=== PATIENT | male | born 1945 | race Caucasian/White ===

== ENCOUNTER 2017-06-29 11:22 | Emergency (ER) | payer MEDICARE, BC, SELFPAY ==
[2017-06-29] VITALS (11 sets, daily range): BP systolic 104–174; BP diastolic 52–132; PULSE 87–139; RESP 14–30; TEMP 37; O2SAT 91–100; BMI 28.0
--- NOTE | 2017-06-29 11:25 | XR_ITS ---
XR chest portable HISTORY: Chest pain ITS.REASON: cp ORDERING PHYSICIAN: James Mosley MD PATIENT AGE: 71 years COMPARISON: 03/25/2017 FINDINGS: There is cardiomegaly with mild pulmonary venous congestion and interstitial edema consistent with CHF. Pacemaker device is present along with a overlying external defibrillator device. There is some patchy density in the left lower lobe consistent with infiltrate and/or atelectasis superimposed upon chronic change with COPD. There is an old right clavicular fracture. IMPRESSION: CHF with COPD and left lower lobe atelectasis or infiltrate
--- NOTE | 2017-06-29 11:29 | HMH.EDGENADL ---
ED Disposition Clinical Impression: Respiratory failure, Chest pain, CHF (congestive heart failure), COPD exacerbation, Chest pain in adult Disposition: Xfer Short-Term Hosp Condition on Discharge: Serious Referrals: Roberto Carlos Cano MD [Primary Care Provider] - - Critical Care Critical Care Time: Yes Attestation: On , the high probability of a clinically significant, sudden or life threatening deterioration of the following system(s) required my full and direct attention, intervention and personal management. The time I documented below is in addition to time spent performing reported procedures but includes the following listed in this critical care notation. Total Critical Care Time: 45 Vital system(s) involved:: Respiratory Failure My critical care processes included: Assessment & monitoring of V/S, Initial and Re-exams, Data Review/Interpretation, Coordinating Care, Medication Orders and management, Documentation Medical Decision Making - Medical Records MR Comment: 1131 Cardiology is here upon patient arrival. they are discussing and reviewing the EKGs now, two current ekgs and old ekg. 1239 initial ABG was off of BiPAP. He is currently on BiPAP and we will get another ABG we will likely go ahead and intubate him unless he is demonstrating some improvement. 152 trend was positive, 3rd abg demonstrates continued improvement. has been seen by cardiology. call out to Tosha GIBSON. 157 pm dw Tosha desires transfer. 1358 family desires transfer to [facility]. [address] Langston he desired the patient to be intubated. Discussed with the family the patient is now awake they do not desire to be intubated I am going to get a repeat abg. will not intubate in accordance with pt and family wishes. Vital Signs: 06/29/17 11:22 06/29/17 13:10 06/29/17 13:12 Pulse Rate Pulse Rate [Right Radial] 135 H 105 H 105 H Respiratory Rate 16 29 H 29 H Blood Pressure [Right Arm] 174/132 151/95 151/95 Blood Pressure Mean [Right Arm] 146 113 113 Blood Pressure Source [Right Arm] Automatic Cuff Automatic Cuff Automatic Cuff Blood Pressure Position [Right Arm] Sitting Supine Sitting 02 Sat by Pulse Oximetry 97 Oxygen Delivery Method Non-Rebreather 06/29/17 13:40 06/29/17 13:59 06/29/17 14:10 Pulse Rate 124 H Pulse Rate [Right Radial] 107 H 139 H Respiratory Rate 22 16 30 H Blood Pressure [Right Arm] 125/74 133/83 Blood Pressure Mean [Right Arm] 91 99 Blood Pressure Source [Right Arm] Automatic Cuff Automatic Cuff Blood Pressure Position [Right Arm] Supine Sitting 02 Sat by Pulse Oximetry 100 98 91 L Oxygen Delivery Method BiPAP BiPAP BiPAP 06/29/17 14:26 Pulse Rate Pulse Rate [Right Radial] 105 H Respiratory Rate 14 Blood Pressure [Right Arm] 133/83 Blood Pressure Mean [Right Arm] 99 Blood Pressure Source [Right Arm] Automatic Cuff Blood Pressure Position [Right Arm] Sitting 02 Sat by Pulse Oximetry 100 Oxygen Delivery Method BiPAP - Lab Data Lab Results 06/29/17 11:28: WBC 13.0 H, RBC 3.78 L, Hgb 11.0 L, Hct 37.3 L, MCV 98.7 H, MCH 29.2, MCHC 29.6 L, RDW 14.4, Plt Count 408, MPV 7.6, Neut % (Auto) 68.9, Lymph % (Auto) 23.1, [place] % (Auto) 5.9, Eos % (Auto) 1.6, Baso % (Auto) 0.4, Neut # (Auto) 8.9 H, Lymph # (Auto) 3.0, [place] # (Auto) 0.8, Eos # (Auto) 0.2, Baso # (Auto) 0.1 06/29/17 11:28: Sodium 137, Potassium 4.9, Chloride 96 L, Carbon Dioxide 36 H, Anion Gap 9.9, BUN 19 H, Creatinine 1.26, Estimated Creat Clear 67, Estimated GFR 57 L, Est GFR ( Amer) 69, Glucose 433 H*, Calcium 9.2, Total Bilirubin 0.2, AST 11 L, ALT 24, Alkaline Phosphatase 190 H, Lactate Dehydrogenase 153, Troponin I < 0.02, Total Protein 8.1, Albumin 3.8, Globulin 4.3 H, Albumin/Globulin Ratio 0.9 L, Lipase 180 06/29/17 11:28: B-Natriuretic Peptide 265 H 06/29/17 11:28: D-Dimer 377 06/29/17 11:45: Specimen Source R radial, O2 % 100, ABG pH 7.09 L*, ABG pCO2 133.0 H, ABG pO2 167.4 H, ABG HCO3 39.4 H, ABG Total CO2 43.5 H, ABG O
--- NOTE | 2017-06-29 11:32 | PC.NURSE ---
Francisco J Christie speaking with
[2017-06-29 11:39] LABS: Basophils # 0.1 K/mm3 (0-0.2); Basophils % 0.4 % (0.1-2.0); Eosinophils # 0.2 K/mm3 (0.0-0.4); Eosinophils % 1.6 % (0.1-12.0); Hematocrit 37.3 % (42.0-52.0); Lymphocytes % 23.1 K/mm3 (10-50); Mean Corpuscular HGB Conc 29.6 g/dL (31.8-35.4); Mean Corpuscular Hemoglobin 29.2 pg (27.0-31.2); Mean Corpuscular Volume 98.7 fl (80-94); Mean Platelet Volume 7.6 fl (7.4-10.4); Monocytes # 0.8 K/mm3 (0.1-1.0); Monocytes % 5.9 % (1.7-9.3); Neutrophils # 8.9 K/mm3 (1.8-7.8); Neutrophils % 68.9 % (37.0-80.0); Platelet Count 408 K/mm3 (142-424); Red Blood Count 3.78 M/mm3 (4.60-6.20); Red Cell Distribution Width 14.4 % (11.5-17.5)
--- NOTE | 2017-06-29 11:40 | PC.NURSE ---
Dr. Chamberlain at bedside with Francisco J
--- NOTE | 2017-06-29 11:46 | CA_ITS ---
PROCEDURE: 2-D M-mode and color Doppler study INDICATIONS FOR THE TEST: Chest pain COPD Heart Murmur Tobacco Smoking Palpitations Fatigue Syncope Edema Hypertension Diabetes MellitusX Rheumatic Fever SOBXDOE ObesityXHyperlipidemia Family History HD Additional History AF,TACHYCARDIA PATIENT INFORMATION HEIGHT: 68 WEIGHT:200 GENDER: Male B/P: 2-D/M-MODE INTERPRETATION: 2-D MEASUREMENTS OBSERVED VALUES IN CMS Right Ventricular Dimension (RVDd) 1.8 Interventricular Septum (Thickness)(IVsd) 1.5 Left Ventricular Internal Dimensions(LVIDd) 5.9 Left Ventricular Posterior Wall (Thickness)(LVPWd) 1.4 Aortic Root 3.1 Aortic Cusp Separation 1.9 Left Atrial Dimensions (LAD) 3.6 2D 1. Technically difficult study because of the patient's factor and poor acoustic windows. 2. Left atrium is mildly enlarged, left ventricle is mildly dilated, there is reduced left ventricular systolic function, visually estimated ejection fraction 30%, left ventricle is globally hypokinetic, there is abnormal septal motion. 3. The right atrium and right ventricle are mildly enlarged with normal contractility, there is a pacemaker lead seen in the right atrium and right ventricle. 4. The aortic valve is minimally thickened and fibrosed. 5. The mitral and tricuspid valve leaflets are minimally thickened. 6. The pulmonic valve is poorly visualized 7. No significant pericardial effusion noted. DOPPLER INTERROGATION: Doppler interrogation of the aortic, mitral and tricuspid valvular presence of moderate to severe mitral and mild tricuspid regurgitation. Calculated right ventricular systolic pressure is 76 mmHg consistent with moderate pulmonary hypertension, inferior vena cava is dilated without significant aortic. Tissue Doppler is indicative of raised left atrial pressure. CONCLUSION: 1. Technically difficult study because of the patient's factor and poor acoustic windows. 2. Mildly enlarged left atrium, normal left ventricular size, mild concentric left ventricular hypertrophy, visually estimated ejection fraction 30% left ventricle is globally hypokinetic, there is abnormal septal motion, tissue Doppler evidence of raised left atrial pressure. 3. Mildly enlarged right atrium and right ventricle, contractility of the right ventricle is normal. 4. Moderate to severe mitral and tricuspid regurgitation, calculated right ventricular systolic pressure is 76 mmHg consistent with severe pulmonary hypertension. 5. No significant pericardial effusion noted.
[2017-06-29 12:03] LABS: Alanine Aminotransferase 24 U/L (12-78); Albumin Level 3.8 gm/dL (3.4-5.0); Albumin/Globulin Ratio 0.9 (1.1-1.8); Alkaline Phosphatase 190 U/L (46-116); Anion Gap 9.9 mEq/L (5-15); Aspartate Amino Transferase 11 U/L (15-37); Bilirubin,Total 0.2 mg/dL (0.2-1.0); Blood Urea Nitrogen 19 mg/dL (7-18); Calcium 9.2 mg/dL (8.5-10.1); Carbon Dioxide 36 mmol/L (21.0-32.0); Chloride 96 mmol/L (98-107); Creatinine Clearance Estimated 67 mL/min (0-300); Creatinine,Serum 1.26 mg/dL (0.70-1.30); Estimated Glomerular Filt Rate 57 ml/min (>60); GFR (African American) 69 ML/MIN (>60); Globulin 4.3 gm/dl (1.3-3.2); Lactate Dehydrogenase 153 U/L (82-234); Lipase 180 u/L (73-393); Potassium 4.9 mmoL/L (3.5-5.1); Sodium 137 mmol/L (136-145); Total Protein,Serum 8.1 gm/dL (6.4-8.2); Troponin I < 0.02 ng/ml (0.00-0.06)
--- NOTE | 2017-06-29 12:03 | HMH.CARDCON2 ---
History of Present Illness Consult date: 06/29/17 Requesting physician: James Mosley Consult reason: chest pain Chief complaint: chest pain, SOA History of present illness: 71-year-old white male with known history of coronary artery disease status post coronary artery stenting with last cardiac catheterization in September 2016 showing moderate coronary disease of the circumflex and right coronary artery with mildly reduced ejection fraction and severe pulmonary hypertension relates onset of shortness of breath and chest pain about 10 AM today. Patient relates this was severe and he felt like he was having a heart attack. EMS was alerted and patient was transported to the [facility] ER for further evaluation. He received 2 sublingual nitroglycerin in route with some improvement in chest pain but was still complaining of significant shortness of breath and chest pain upon arrival. Elevated blood pressure 174/132 mmHg with heart rate 135 bpm noted upon arrival. EKG upon arrival shows sinus tach with left bundle branch block with questionable ST segment abnormalities in the anterior leads compared with old tracing from March 2017. Reviewed by Dr. Edwards and was not felt to represent an acute ST elevation PA. Patient was given IV morphine along with IV nitroglycerin drip with improvement in symptoms. Review of Systems - *Cardiovascular Reports chest pain, Reports shortness of breath - *Respiratory Reports shortness of breath, Reports shortness of breath with activity - *Musculoskeletal Reports body aches [facility] History Medical History: Reports:: Diabetes Mellitus Type 2, Internal Pacemaker Denies:: Cancer, Diabetes Mellitus Type 1, MRSA Other Surgeries: Yes: Pacemaker Amputation: No - *Social History Alcohol Intake: never - Psychiatric History Expresses thoughts of harming self/others: None Suicide Plan Description: No Plan Meds Allergies Allergy/AdvReac Type Severity Reaction Status Date / Time Sulfa (Sulfonamide Allergy Intermediate I-RASH Verified 06/29/17 11:51 Antibiotics) [SULFA (SULFONAMIDE ANTIBIOTICS)] fluticasone Allergy Mild NA-NAUSEA/V Verified 06/29/17 11:52 [From ADVAIR DISKUS] OMITING salmeterol Allergy Mild NA-NAUSEA/V Verified 06/29/17 11:51 [From ADVAIR DISKUS] OMITING Exam Vital signs and Labs for Last 24 Hours: Pulse Resp BP Pulse Ox 135 H 16 174/132 97 06/29/17 11:22 06/29/17 11:22 06/29/17 11:22 06/29/17 11:22 Laboratory Results - last 24 hr 06/29/17 11:28: WBC 13.0 H, RBC 3.78 L, Hgb 11.0 L, Hct 37.3 L, MCV 98.7 H, MCH 29.2, MCHC 29.6 L, RDW 14.4, Plt Count 408, MPV 7.6, Neut % (Auto) 68.9, Lymph % (Auto) 23.1, [place] % (Auto) 5.9, Eos % (Auto) 1.6, Baso % (Auto) 0.4, Neut # (Auto) 8.9 H, Lymph # (Auto) 3.0, [place] # (Auto) 0.8, Eos # (Auto) 0.2, Baso # (Auto) 0.1 I & O for Last 24 hours: Intake & Output 06/27/17 06/28/17 06/29/17 06/30/17 11:59 11:59 11:59 11:59 Weight 190 lb - Constitutional moderate distress, severe distress - *Routine Neck Exam Present: JVD. Absent: carotid bruit - *Routine Respiratory Exam Present: wheezes, diminished air movement - *Routine Cardiovascular Exam Present: tachycardia - *Routine Extremities Exam Present: edema - *Routine Neurological Exam Present: alert, oriented X3, moving all extremities Results 06/29/17 11:28 06/29/17 11:28 CBC 06/29/17 Range/Units 11:28 WBC 13.0 H (4.8-10.8) K/mm3 RBC 3.78 L (4.60-6.20) M/mm3 Hgb 11.0 L (14.1-18.0) g/dL Hct 37.3 L (42.0-52.0) % Plt Count 408 (142-424) K/mm3 Neut # (Auto) 8.9 H (1.8-7.8) K/mm3 Lymph # (Auto) 3.0 (0.7-4.5) K/mm3 [place] # (Auto) 0.8 (0.1-1.0) K/mm3 Eos # (Auto) 0.2 (0.0-0.4) K/mm3 Baso # (Auto) 0.1 (0-0.2) K/mm3 Intake and Output 06/29/17 06/29/17 06/29/17 03:59 11:59 19:59 Other: Weight 190 lb EKG interpretations - EKG EKG results cardi
[2017-06-29 12:05] LABS: Microscopic, Urine URINE MICROSCOPIC (MICROSCOPIC)
--- NOTE | 2017-06-29 12:05 | PC.NURSE ---
echo at bedside
--- NOTE | 2017-06-29 12:06 | P.CONS_ITS ---
History of Present Illness Consult date: 06/29/17 Requesting physician: James Mosley Consult reason: chest pain Chief complaint: chest pain, SOA History of present illness: 71-year-old white male with known history of coronary artery disease status post coronary artery stenting with last cardiac catheterization in September 2016 showing moderate coronary disease of the circumflex and right coronary artery with mildly reduced ejection fraction and severe pulmonary hypertension relates onset of shortness of breath and chest pain about 10 AM today. Patient relates this was severe and he felt like he was having a heart attack. EMS was alerted and patient was transported to the [facility] ER for further evaluation. He received 2 sublingual nitroglycerin in route with some improvement in chest pain but was still complaining of significant shortness of breath and chest pain upon arrival. Elevated blood pressure 174/132 mmHg with heart rate 135 bpm noted upon arrival. EKG upon arrival shows sinus tach with left bundle branch block with questionable ST segment abnormalities in the anterior leads compared with old tracing from March 2017. Reviewed by Dr. Edwards and was not felt to represent an acute ST elevation [place]. Patient was given IV morphine along with IV nitroglycerin drip with improvement in symptoms. Review of Systems - *Cardiovascular Reports chest pain, Reports shortness of breath - *Respiratory Reports shortness of breath, Reports shortness of breath with activity - *Musculoskeletal Reports body aches [facility] History Medical History: Reports:: Diabetes Mellitus Type 2, Internal Pacemaker Denies:: Cancer, Diabetes Mellitus Type 1, MRSA Other Surgeries: Yes: Pacemaker Amputation: No - *Social History Alcohol Intake: never - Psychiatric History Expresses thoughts of harming self/others: None Suicide Plan Description: No Plan Meds Allergies Allergy/AdvReac Type Severity Reaction Status Date / Time Sulfa (Sulfonamide Allergy Intermediate I-RASH Verified 06/29/17 11:51 Antibiotics) [SULFA (SULFONAMIDE ANTIBIOTICS)] fluticasone Allergy Mild NA-NAUSEA/V Verified 06/29/17 11:52 [From ADVAIR DISKUS] OMITING salmeterol Allergy Mild NA-NAUSEA/V Verified 06/29/17 11:51 [From ADVAIR DISKUS] OMITING Exam Vital signs and Labs for Last 24 Hours: Pulse Resp BP Pulse Ox 135 H 16 174/132 97 06/29/17 11:22 06/29/17 11:22 06/29/17 11:22 06/29/17 11:22 Laboratory Results - last 24 hr 06/29/17 11:28: WBC 13.0 H, RBC 3.78 L, Hgb 11.0 L, Hct 37.3 L, MCV 98.7 H, MCH 29.2, MCHC 29.6 L, RDW 14.4, Plt Count 408, MPV 7.6, Neut % (Auto) 68.9, Lymph % (Auto) 23.1, [place] % (Auto) 5.9, Eos % (Auto) 1.6, Baso % (Auto) 0.4, Neut # ( Auto) 8.9 H, Lymph # (Auto) 3.0, [place] # (Auto) 0.8, Eos # (Auto) 0.2, Baso # ( Auto) 0.1 I & O for Last 24 hours: Intake & Output 06/27/17 06/28/17 06/29/17 06/30/17 11:59 11:59 11:59 11:59 Weight 190 lb - Constitutional moderate distress, severe distress - *Routine Neck Exam Present: JVD. Absent: carotid bruit - *Routine Respiratory Exam Present: wheezes, diminished air movement - *Routine Cardiovascular Exam Present: tachycardia - *Routine Extremities Exam Present: edema - *Routine Neurological Exam Present: alert, oriented X3, moving all extremities Results 06/29/17 11:2
[2017-06-29 12:07] LABS: Appearance,Urine CLEAR (Clear); Bilirubin,Urine Negative (Negative); Blood, Urine Negative (Negative); Color,Urine YELLOW (Yellow); Glucose,Urine (UA) 3+ (Negative); Ketones,Urine Negative (Negative); Leukocyte Esterase,Urine Negative (Negative); Nitrate,Urine Negative (Negative); Protein,Urine TRACE (Negative); Specific Gravity, Urine 1.015 (1.005-1.030); Urobilinogen,Urine 0.2 EU/dl (0.2)
[2017-06-29 12:12] LABS: Glucose 433 mg/dL (74-106)
[2017-06-29 12:14] LABS: D-Dimer 377 (0-400)
[2017-06-29 12:22] LABS: ABG Base Excess 9.6 mmol/L (-2.4-2.3); ABG HCO3 39.4 mmhg (22.0-26.0); ABG Oxygen Saturation 99 % (90-100); ABG PO2 167.4 mmhg (80-100); ABG TCO2 43.5 mmhg (23-27); Oxygen 100 %
[2017-06-29 12:23] LABS: Allen's Test ACCEPTABLE; Source R RADIAL
[2017-06-29 12:25] LABS: ABG PH 7.09 mmol/L (7.35-7.45)
[2017-06-29 12:26] LABS: Squamous Epithelial Cell,Urine Occasional #/hpf (0-5)
[2017-06-29 12:27] LABS: Bacteria,Urine Trace /lpf
[2017-06-29 12:53] LABS: ABG Base Excess 9.3 mmol/L (-2.4-2.3); ABG HCO3 38.9 mmhg (22.0-26.0); ABG Oxygen Saturation 96 % (90-100); ABG TCO2 42.8 mmhg (23-27); Allen's Test acceptable; Oxygen 60 %
[2017-06-29 12:54] LABS: ABG PCO2 126.9 mmhg (35.0-45.0)
--- NOTE | 2017-06-29 13:08 | PC.NURSE ---
Pt on bipap and repeat ABGto be drawn in 30 mins
[2017-06-29 13:45] LABS: ABG Base Excess 8.9 mmol/L (-2.4-2.3); ABG HCO3 37.9 mmhg (22.0-26.0); ABG Oxygen Saturation 90 % (90-100); ABG PO2 70.2 mmhg (80-100); ABG TCO2 41.4 mmhg (23-27); Oxygen 60 %
[2017-06-29 13:46] LABS: Allen's Test ACCEPTABLE; Source L RADIAL
[2017-06-29 13:47] LABS: ABG PCO2 113.7 mmhg (35.0-45.0); ABG PH 7.14 mmol/L (7.35-7.45)
--- NOTE | 2017-06-29 13:53 | PC.NURSE ---
dr becker contacted
--- NOTE | 2017-06-29 14:08 | PC.NURSE ---
spoke with who requested pt be transferred. Family at bedside and requesting we call [facility] to transfer patient
--- NOTE | 2017-06-29 14:27 | PC.NURSE ---
[facility] called and advised they were out of beds at this time. Calling [facility] at this time.
--- NOTE | 2017-06-29 14:52 | PC.NURSE ---
dr boyer from [place] speaking to dr haile at this time
[2017-06-29 15:21] LABS: ABG Base Excess 6.7 mmol/L (-2.4-2.3); ABG HCO3 34.7 mmhg (22.0-26.0); ABG Oxygen Saturation 93 % (90-100); ABG PO2 75.4 mmhg (80-100); ABG TCO2 37.5 mmhg (23-27)
[2017-06-29 15:22] LABS: Allen's Test ACCEPTABLE; Oxygen 40 %; Source L RADIAL
[2017-06-29 15:23] LABS: ABG PCO2 90.7 mmhg (35.0-45.0)
== END 2017-06-29 17:55 | disposition short-term general hospital (02) ==
PROVIDERS: Emergency Provider Emergency Medicine; Family Provider Internal Medicine Adolescent Medicine; PCP Internal Medicine Adolescent Medicine
DX: J44.1 Chronic obstructive pulmonary disease with (acute) exacerbation (principal); R07.9 Chest pain, unspecified; I50.9 Heart failure, unspecified; J96.90 Respiratory failure, unspecified, unspecified whether with hypoxia or hypercapnia; Z88.2 Allergy status to sulfonamides; Z91.09 Other allergy status, other than to drugs and biological substances
CPT/HCPCS: 71045; 80053; 81001; 82803; 83615; 83690; 83880; 84484; 85025; 85378; 87040; 93005; 93306; 96365; 96366; 96375; 99284; J1956; J2405

== ENCOUNTER 2017-07-15 14:34 | Inpatient (IN) | payer MEDICARE, BC, SELFPAY ==
--- NOTE | 2017-07-15 | CT_ITS ---
CT angio chest HISTORY: ITS.REASON: SOA AND ELEVATED DIMER ORDERING PHYSICIAN: Mayo Salinas MD PATIENT AGE: 71 years TECHNIQUE: Axial images obtained following the administration of 75 mL of Isovue 370 . Sagittal, and coronal reformatted images are also generated and reviewed. COMPARISON: 01/26/2017 FINDINGS: Pulmonary Present in the medial basilar and anterior basilar segment of left lower lobe pulmonary arteries. No aortic aneurysm or dissection. Coronary artery stents are present. Normal heart size. No evidence of pericardial effusion. Cardiac pacemaker device is present. There are are fibrotic/atelectatic changes in the lung bases there is a 15 x 8 mm nodular opacity in the left lower lobe. The margins are somewhat irregular and micronodular. Previously nodule has more smooth appearance. The nodule may be slightly increased in size compared to the previous exam. There is a 5 mm subpleural nodule in the left upper lobe anteriorly not readily apparent previously. Calcified granuloma right lower lobe no effusions. IMPRESSION: 1. Multiple left lower lobe pulmonary emboli. 2. Left-sided pulmonary nodules measuring up to 15 mm which is slightly larger and more irregular on today's exam compared to the previous study raising the suspicion of malignancy. 5 mm subpleural nodular density left upper lobe has developed in the interval as well. Neoplasm is considered.
[2017-07-15 14:37] VITALS: BP 124/80; PULSE 82; RESP 18; TEMP 36.8; O2SAT 98
--- NOTE | 2017-07-15 14:56 | XR_ITS ---
XR chest 2V HISTORY: ITS.REASON: CHEST PAIN ORDERING PHYSICIAN: Sharon Ornelas MD PATIENT AGE: 71 years COMPARISON: 06/29/2017 FINDINGS: Bipolar pacemaker is present. Atelectatic or fibrotic changes present in the left lower lobe and right suprahilar region. There are coronary artery stents. No lobar consolidation or collapse is evident. IMPRESSION: Left lower lobe and right suprahilar atelectasis or fibrosis
--- NOTE | 2017-07-15 14:59 | HMH.EDSOB ---
ED Disposition Clinical Impression: COPD (chronic obstructive pulmonary disease), Diabetes, Pedal edema, Pulmonary embolism, Lung nodule < 6cm on CT Disposition: Home, Self-Care Condition on Discharge: Good - Critical Care Critical Care Time: No Attestation: On , the high probability of a clinically significant, sudden or life threatening deterioration of the following system(s) required my full and direct attention, intervention and personal management. The time I documented below is in addition to time spent performing reported procedures but includes the following listed in this critical care notation. Medical Decision Making - Medical Records Medical records reviewed: Yes: I reviewed the patient's medical records. Vital Signs: 07/15/17 14:37 Temperature 98.2 F Temperature Source Oral Pulse Rate [Right Brachial] 82 Respiratory Rate 18 Blood Pressure [Right Arm] 124/80 Blood Pressure Mean [Right Arm] 94 Blood Pressure Source [Right Arm] Automatic Cuff Blood Pressure Position [Right Arm] Sitting 02 Sat by Pulse Oximetry 98 Oxygen Delivery Method Room Air - Lab Data Lab Results 07/15/17 14:39: WBC 9.1, RBC 3.20 L, Hgb 9.5 L, Hct 31.7 L, MCV 99.1 H, MCH 29.6, MCHC 29.9 L, RDW 14.4, Plt Count 270, MPV 7.9, Neut % (Auto) 75.5, Lymph % (Auto) 18.6, [place] % (Auto) 4.9, Eos % (Auto) 0.7, Baso % (Auto) 0.3, Neut # (Auto) 6.9, Lymph # (Auto) 1.7, [place] # (Auto) 0.4, Eos # (Auto) 0.1, Baso # (Auto) 0.0 07/15/17 14:39: D-Dimer 649 H* 07/15/17 14:39: Sodium 138, Potassium 4.8, Chloride 98, Carbon Dioxide 30, Anion Gap 14.8, BUN 16, Creatinine 1.36 H, Estimated Creat Clear 40, Estimated GFR 52 L, Est GFR ( Amer) 63, Glucose 516 H*, Calcium 7.5 L, Total Bilirubin 0.2, AST 28, ALT 32, Alkaline Phosphatase 176 H, Total Creatine Kinase 49, CK-MB (CK-2) 1.0, CK-MB (CK-2) Rel Index 2.0, Troponin I 0.02, Total Protein 6.9, Albumin 3.3 L, Globulin 3.6 H, Albumin/Globulin Ratio 0.9 L 07/15/17 14:39: B-Natriuretic Peptide 344 H 07/15/17 14:39: Magnesium 0.7 L Result diagrams: 07/15/17 14:39 07/15/17 14:39 Orders (Tests/Meds): ED MEDICATIONS Discontinued Medications Generic Name Dose Route Start Last Admin Trade Name Dustin PRN Reason Stop Dose Admin Albuterol/Ipratropium 3 ml 07/15/17 14:57 Duoneb 3ml Neb IH 07/15/17 14:58 ONCE ONE Enoxaparin Sodium 60 mg 07/15/17 15:42 07/15/17 15:50 Lovenox 60mg/0.6ml Syringe SQ 07/15/17 15:43 60 mg ONCE ONE Administration Heparin Sodium (Porcine) 7,500 unit 07/15/17 17:36 Heparin Sodium 5,000 Units/Ml Vial IV 07/15/17 17:37 ONCE ONE Sodium Chloride 1,000 mls @ 999 mls/hr 07/15/17 16:30 Sod Chlor 0.9% 1000ml Bag IV 07/15/17 16:45 .Q1H1M ABIGAIL Insulin Human Regular 12 unit 07/15/17 15:42 07/15/17 15:49 Humulin R Insulin 100 Units/Ml 10ml Vial SQ 07/15/17 15:43 12 unit ONCE ONE Administration Iopamidol 75 ml 07/15/17 16:22 07/15/17 16:24 [id number]; 75ml Vial IV 07/15/17 16:23 75 ml ONCE ONE Administration Sodium Chloride 20 ml 07/15/17 16:22 07/15/17 16:24 Rad-Ns 50ml Vial IV 07/15/17 16:23 20 ml ONCE ONE Administration ORDERS Category Date Time Status CT angio chest Routine Cat Scan 07/15/17 Taken XR chest 2V Stat Exams 07/15/17 14:56 Taken ECG Request by /Nse Stat Y 07/15/17 14:57 Ordered - CT Data CT Scan: Chest Time Received: 16:[address] Reviewed: Yes: I have viewed the radiologist's interpretation Preliminary Findings: Abnormal Findings Narrative: This chest study was positive for left lower lobe pulmonary embolism, lingular infiltrate, 15 mm pulmonary nodule. - Boom Inquiry Pt receiving controlled substance: No Boom was queried for this patient: No Medical Decision Making Narrative: Mrs. Oconnor CT scan was positive for PE I contacted Dr. Salinas for unassigned admission. Start the patient on Lovenox H to prophylax. Resp/SOB HPI - Gene
--- NOTE | 2017-07-15 15:02 | ED_ITS ---
ED Disposition Clinical Impression: COPD (chronic obstructive pulmonary disease), Diabetes, Pedal edema, Pulmonary embolism, Lung nodule < 6cm on CT Disposition: Home, Self-Care Condition on Discharge: Good - Critical Care Critical Care Time: No Attestation: On , the high probability of a clinically significant, sudden or life threatening deterioration of the following system(s) required my full and direct attention, intervention and personal management. The time I documented below is in addition to time spent performing reported procedures but includes the following listed in this critical care notation. Medical Decision Making - Medical Records Medical records reviewed: Yes: I reviewed the patient's medical records. Vital Signs: 07/15/17 14:37 Temperature 98.2 F Temperature Source Oral Pulse Rate [Right Brachial] 82 Respiratory Rate 18 Blood Pressure [Right Arm] 124/80 Blood Pressure Mean [Right Arm] 94 Blood Pressure Source [Right Arm] Automatic Cuff Blood Pressure Position [Right Arm] Sitting 02 Sat by Pulse Oximetry 98 Oxygen Delivery Method Room Air - Lab Data Lab Results 07/15/17 14:39: WBC 9.1, RBC 3.20 L, Hgb 9.5 L, Hct 31.7 L, MCV 99.1 H, MCH 29.6 , MCHC 29.9 L, RDW 14.4, Plt Count 270, MPV 7.9, Neut % (Auto) 75.5, Lymph % ( Auto) 18.6, [place] % (Auto) 4.9, Eos % (Auto) 0.7, Baso % (Auto) 0.3, Neut # (Auto ) 6.9, Lymph # (Auto) 1.7, [place] # (Auto) 0.4, Eos # (Auto) 0.1, Baso # (Auto) 0.0 07/15/17 14:39: D-Dimer 649 H* 07/15/17 14:39: Sodium 138, Potassium 4.8, Chloride 98, Carbon Dioxide 30, Anion Gap 14.8, BUN 16, Creatinine 1.36 H, Estimated Creat Clear 40, Estimated GFR 52 L, Est GFR ( Amer) 63, Glucose 516 H*, Calcium 7.5 L, Total Bilirubin 0.2, AST 28, ALT 32, Alkaline Phosphatase 176 H, Total Creatine Kinase 49, CK-MB (CK-2) 1.0, CK-MB (CK-2) Rel Index 2.0, Troponin I 0.02, Total Protein 6.9, Albumin 3.3 L, Globulin 3.6 H, Albumin/Globulin Ratio 0.9 L 07/15/17 14:39: B-Natriuretic Peptide 344 H 07/15/17 14:39: Magnesium 0.7 L Result diagrams: 07/15/17 14:39 07/15/17 14:39 Orders (Tests/Meds): ED MEDICATIONS Discontinued Medications Generic Name Dose Route Start Last Admin Trade Name Dustin PRN Reason Stop Dose Admin Albuterol/Ipratropium 3 ml 07/15/17 14:57 Duoneb 3ml Neb IH 07/15/17 14:58 ONCE ONE Enoxaparin Sodium 60 mg 07/15/17 15:42 07/15/17 15:50 Lovenox 60mg/0.6ml Syringe SQ 07/15/17 15:43 60 mg ONCE ONE Administration Heparin Sodium (Porcine) 7,500 unit 07/15/17 17:36 Heparin Sodium 5,000 Units/Ml Vial IV 07/15/17 17:37 ONCE ONE Sodium Chloride 1,000 mls @ 999 mls/hr 07/15/17 16:30 Sod Chlor 0.9% 1000ml Bag IV 07/15/17 16:45 .Q1H1M ABIGAIL Insulin Human Regular 12 unit 07/15/17 15:42 07/15/17 15:49 Humulin R Insulin 100 Units/Ml 10ml Vial SQ 07/15/17 15:43 12 unit ONCE ONE Administration Iopamidol 75 ml 07/15/17 16:22 07/15/17 16:24 [id number]; 75ml Vial IV 07/15/17 16:23 75 ml ONCE ONE Administration Sodium Chloride 20 ml 07/15/17 16:22 07/15/17 16:24 Rad-Ns 50ml Vial IV 07/15/17 16:23 20 ml ONCE ONE Administration ORDERS Category Date Time Status CT angio chest Routine Cat Scan 07/15/17 Taken XR chest 2V
[2017-07-15 15:13] LABS: Basophils % 0.3 % (0.1-2.0); Eosinophils # 0.1 K/mm3 (0.0-0.4); Eosinophils % 0.7 % (0.1-12.0); Hematocrit 31.7 % (42.0-52.0); Hemoglobin 9.5 g/dL (14.1-18.0); Lymphocytes # 1.7 K/mm3 (0.7-4.5); Lymphocytes % 18.6 K/mm3 (10-50); Mean Corpuscular HGB Conc 29.9 g/dL (31.8-35.4); Mean Corpuscular Hemoglobin 29.6 pg (27.0-31.2); Mean Corpuscular Volume 99.1 fl (80-94); Mean Platelet Volume 7.9 fl (7.4-10.4); Monocytes # 0.4 K/mm3 (0.1-1.0); Monocytes % 4.9 % (1.7-9.3); Neutrophils # 6.9 K/mm3 (1.8-7.8); Neutrophils % 75.5 % (37.0-80.0); Platelet Count 270 K/mm3 (142-424); Red Cell Distribution Width 14.4 % (11.5-17.5); White Blood Count 9.1 K/mm3 (4.8-10.8)
[2017-07-15 15:16] LABS: Magnesium 0.7 mg/dL (1.4-2.2)
[2017-07-15 15:35] LABS: Alanine Aminotransferase 32 U/L (12-78); Albumin Level 3.3 gm/dL (3.4-5.0); Albumin/Globulin Ratio 0.9 (1.1-1.8); Alkaline Phosphatase 176 U/L (46-116); Anion Gap 14.8 mEq/L (5-15); Aspartate Amino Transferase 28 U/L (15-37); Bilirubin,Total 0.2 mg/dL (0.2-1.0); Blood Urea Nitrogen 16 mg/dL (7-18); Calcium 7.5 mg/dL (8.5-10.1); Carbon Dioxide 30 mmol/L (21.0-32.0); Chloride 98 mmol/L (98-107); Creatine Kinase 49 U/L (39-308); Creatinine Clearance Estimated 40 mL/min (0-300); Creatinine,Serum 1.36 mg/dL (0.70-1.30); Estimated Glomerular Filt Rate 52 ml/min (>60); GFR (African American) 63 ML/MIN (>60); Globulin 3.6 gm/dl (1.3-3.2); Potassium 4.8 mmoL/L (3.5-5.1); Sodium 138 mmol/L (136-145); Total Protein,Serum 6.9 gm/dL (6.4-8.2); Troponin I 0.02 ng/ml (0.00-0.06)
[2017-07-15 15:37] LABS: D-Dimer 649 (0-400)
[2017-07-15 15:38] LABS: Glucose 516 mg/dL (74-106)
--- NOTE | 2017-07-15 17:34 | PC.NURSE ---
per angi pineda.- spoke with wolf and received following instructions for heparin drip: bolus 7500 units; drip rate:2000units/hr. ptt repeat 6 hrs.
[2017-07-15 17:50] LABS: Activated Partial Thrombo Time 25.7 seconds (23.6-34.0)
[2017-07-15 18:41] VITALS: BP 134/79; PULSE 95; RESP 20; TEMP 37.4; O2SAT 100; BMI 29.7
[2017-07-15 20:00] VITALS: PULSE 101; PULSE 90; PULSE 93; RESP 18; TEMP 36.9; O2SAT 100; O2SAT 99
[2017-07-16] VITALS (15 sets, daily range): BP systolic 94–146; BP diastolic 53–78; PULSE 70–105; RESP 17–31; TEMP 36.4–37.7; O2SAT 91–100
--- NOTE | 2017-07-16 04:13 | PC.NURSE ---
PT WAS RESTLESS EARLY IN SHIFT. C/O SOA AND ANXIETY X1. HE ALSO STATED THAT HE WANTED TO BE TRANSFERED TO [facility]. 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 PT FAMILY TALKED TO PT AND HELPED CALM HIM. PT LATER STATED THAT HE DID NOT WANT TO LEAVE. LUNGS NOTED TO BE DIMINSHED T/O. ANTIBIOTICS ADMIN THIS SHIFT. V/S HAVE REMAINED STABLE. WILL CONTINUE TO MONITOR.
[2017-07-16 05:46] LABS: Basophils % 0.2 % (0.1-2.0); Eosinophils % 0.4 % (0.1-12.0); Lymphocytes # 0.8 K/mm3 (0.7-4.5); Lymphocytes % 11.3 K/mm3 (10-50); Mean Corpuscular HGB Conc 31.3 g/dL (31.8-35.4); Mean Corpuscular Hemoglobin 29.9 pg (27.0-31.2); Mean Corpuscular Volume 95.4 fl (80-94); Mean Platelet Volume 7.6 fl (7.4-10.4); Monocytes # 0.3 K/mm3 (0.1-1.0); Monocytes % 4.7 % (1.7-9.3); Neutrophils # 6.1 K/mm3 (1.8-7.8); Neutrophils % 83.4 % (37.0-80.0); Platelet Count 203 K/mm3 (142-424); Red Blood Count 2.74 M/mm3 (4.60-6.20); Red Cell Distribution Width 14.5 % (11.5-17.5); White Blood Count 7.4 K/mm3 (4.8-10.8)
[2017-07-16 05:48] LABS: Hematocrit 26.1 % (42.0-52.0); Hemoglobin 8.2 g/dL (14.1-18.0)
[2017-07-16 05:56] LABS: Anion Gap 9.8 mEq/L (5-15); Blood Urea Nitrogen 11 mg/dL (7-18); Carbon Dioxide 33 mmol/L (21.0-32.0); Chloride 102 mmol/L (98-107); Creatinine Clearance Estimated 85 mL/min (0-300); Creatinine,Serum 0.98 mg/dL (0.70-1.30); Estimated Glomerular Filt Rate 76 ml/min (>60); GFR (African American) 92 ML/MIN (>60); Potassium 4.8 mmoL/L (3.5-5.1); Sodium 140 mmol/L (136-145)
[2017-07-16 05:57] LABS: Glucose 261 mg/dL (74-106)
[2017-07-16 07:02] LABS: POC Glucose,Bedside 264 mg/dL
--- NOTE | 2017-07-16 07:44 | HMH.PHAVTE ---
[facility] Pharmacy VTE Monitoring - Patient Demographics Admission date: 07/15/17 Report Date: 07/16/17 Time: 07:44 Allergies/Adverse Reactions: Patient Allergies Sulfa (Sulfonamide Antibiotics) [SULFA (SULFONAMIDE ANTIBIOTICS)] Allergy (Intermediate, Verified 06/29/17 11:51) I-RASH fluticasone [From ADVAIR DISKUS] Allergy (Mild, Verified 06/29/17 11:52) NA-NAUSEA/VOMITING salmeterol [From ADVAIR DISKUS] Allergy (Mild, Verified 06/29/17 11:51) NA-NAUSEA/VOMITING Height: 1.7 m Weight: 86.183 kg Patient Problems: Current Active Problems COPD (chronic obstructive pulmonary disease) (Acute) Diabetes (Acute) Pedal edema (Acute) Pulmonary embolism (Acute) Lung nodule < 6cm on CT (Acute) - VTE Risk Labs: VTE Related Lab Results Hgb 8.2 g/dL (14.1-18.0) L D 07/16/17 05:00 Hct 26.1 % (42.0-52.0) L 07/16/17 05:00 Plt Count 203 K/mm3 (142-424) 07/16/17 05:00 APTT 25.7 seconds (23.6-34.0) 07/15/17 14:39 BUN 11 mg/dL (7-18) D 07/16/17 05:00 Creatinine 0.98 mg/dL (0.70-1.30) D 07/16/17 05:00 Estimated Creat Clear 85 mL/min (0-300) 07/16/17 05:00 Was VTE Risk Assessment Performed: Yes VTE Score: 7 VTE Risk Level: Moderate Risk - Prophylaxis VTE Prophylaxis Ordered?: Yes Types of VTE Prophylaxis: TEDS Knee High Location of Applied Device: Bilateral Lower Extremeties - VTE Diagnosis Confirmed Treatment or plan recommended: Continue Current Treatment
--- NOTE | 2017-07-16 08:02 | HMH.HP ---
*Admission Date: 07/15/17 *Chief complaint: Shortness of air *History of present illness: 71-year-old white male with multiple cardiac and pulmonary problems including recent stay at [facility] for atrial ventricular accessory tract ablation and defibrillator and pacemaker implantation in the last part of June and a stay at [facility] for the first 5 days of July with bacterial pneumonia and hypoxia with acidosis. While there he was also discovered to have a pulmonary nodule and has follow-up with pulmonary at [facility] this week. Unfortunately, yesterday afternoon he began to feel very short of air and had feelings of chest pressure. Brought to the emergency department here where workup revealed negative cardiac enzymes but had a positive chest scan for multiple pulmonary embolism appearance in the left lower lung field along with the aforementioned pulmonary mass. He was admitted after 1 dose of Lovenox for ongoing anticoagulation therapy. This morning he states that he feels much better already, denies chest pain or current shortness of air. [facility] History Medical History: Reports:: Congestive Heart Failure, Coronary Artery Disease, Diabetes Mellitus Type 2, Hyperlipidemia, Hypertension, Internal Pacemaker, Myocardial Infarction Denies:: Cancer, Diabetes Mellitus Type 1, MRSA Other Medical History: Reports: Anemia Other Surgeries: Yes: Pacemaker Amputation: No Fractures: Yes (L TIB/FIB, L PELVIS, L COLLAR BONE, L RIBS) - *Social History Educational Level: Completed High School Smoking Status: Light tobacco smoker Tobacco Type: cigarettes Smoking End Date: 1997 Alcohol Intake: never Occupational Status: retired Housing: house Household Members: spouse - Psychiatric History Expresses thoughts of harming self/others: None Suicide Plan Description: No Plan *Family Hx:: Diabetes, Heart Attack, Hyperlipidemia, Hypertension Review of Systems - Constitutional Denies anorexia, Denies body ache(s), Denies chills - ENT Denies abnormal hearing, Denies bleeding gums - *Cardiovascular Reports chest pain, Reports shortness of breath, Reports shortness of breath with activity, Denies chest pain at rest - *Respiratory Denies change in phlegm color, Denies chest congestion Meds Home Medications Medication Instructions Recorded Confirmed Type Acetaminophen 500 mg PO Q6HP PRN 07/15/17 07/15/17 History Aspirin [Adult Aspirin Regimen] 81 mg PO DAILY 07/15/17 07/15/17 History Atorvastatin Calcium [Atorvastatin 80 mg PO HS 07/15/17 07/15/17 History 80mg Tab] Bisoprolol Fumarate [Zebeta 5mg 5 mg PO DAILY 07/15/17 07/15/17 History tablet] Budesonide/Formoterol Fumarate 4.5 gm IH BID 07/15/17 07/15/17 History [Symbicort 160-4.5 Mcg Inhaler] Clopidogrel Bisulfate [Plavix 75mg 75 mg PO DAILY 07/15/17 07/15/17 History Tab] Furosemide [Lasix 40mg tab] 40 mg PO BID 07/15/17 07/15/17 History Ipratropium/Albuterol Sulfate 1 puff IH Q4HP PRN 07/15/17 07/15/17 History [Combivent Respimat Inh] Metformin HCl 1,000 mg PO BID 07/15/17 07/15/17 History Miscellaneous [Unknown Home 1 each NOTAPPLIC CONSULT PHARMACY 07/15/17 07/15/17 History Medication] Pantoprazole Sodium [Protonix 40mg 40 mg PO DAILY 07/15/17 07/15/17 History tablet] Spironolactone [Spironolactone 25 mg PO BID 07/15/17 07/15/17 History 25mg Tab] Allergies Allergy/AdvReac Type Severity Reaction Status Date / Time Sulfa (Sulfonamide Allergy Intermediate I-RASH Verified 06/29/17 11:51 Antibiotics) [SULFA (SULFONAMIDE ANTIBIOTICS)] fluticasone Allergy Mild NA-NAUSEA/V Verified 06/29/17 11:52 [From ADVAIR DISKUS] OMITING salmeterol Allergy Mild NA-NAUSEA/V Verified 06/29/17 11:51 [From ADVAIR DISKUS] OMITING Exam Vital signs and Labs for Last 24 Hours: Temp Pulse Resp BP Pulse Ox 98.4 F 97 H 19 129/73 97 07/16/17 04:05 07/16/17 04:05
--- NOTE | 2017-07-16 08:05 | P.HP_ITS ---
*Admission Date: 07/15/17 *Chief complaint: Shortness of air *History of present illness: 71-year-old white male with multiple cardiac and pulmonary problems including recent stay at [facility] for atrial ventricular accessory tract ablation and defibrillator and pacemaker implantation in the last part of June and a stay at [facility] for the first 5 days of July with bacterial pneumonia and hypoxia with acidosis. While there he was also discovered to have a pulmonary nodule and has follow-up with pulmonary at [facility] this week. Unfortunately, yesterday afternoon he began to feel very short of air and had feelings of chest pressure. Brought to the emergency department here where workup revealed negative cardiac enzymes but had a positive chest scan for multiple pulmonary embolism appearance in the left lower lung field along with the aforementioned pulmonary mass. He was admitted after 1 dose of Lovenox for ongoing anticoagulation therapy. This morning he states that he feels much better already, denies chest pain or current shortness of air. [facility] History Medical History: Reports:: Congestive Heart Failure, Coronary Artery Disease, Diabetes Mellitus Type 2, Hyperlipidemia, Hypertension, Internal Pacemaker, Myocardial Infarction Denies:: Cancer, Diabetes Mellitus Type 1, MRSA Other Medical History: Reports: Anemia Other Surgeries: Yes: Pacemaker Amputation: No Fractures: Yes (L TIB/FIB, L PELVIS, L COLLAR BONE, L RIBS) - *Social History Educational Level: Completed High School Smoking Status: Light tobacco smoker Tobacco Type: cigarettes Smoking End Date: 1997 Alcohol Intake: never Occupational Status: retired Housing: house Household Members: spouse - Psychiatric History Expresses thoughts of harming self/others: None Suicide Plan Description: No Plan *Family Hx:: Diabetes, Heart Attack, Hyperlipidemia, Hypertension Review of Systems - Constitutional Denies anorexia, Denies body ache(s), Denies chills - ENT Denies abnormal hearing, Denies bleeding gums - *Cardiovascular Reports chest pain, Reports shortness of breath, Reports shortness of breath with activity, Denies chest pain at rest - *Respiratory Denies change in phlegm color, Denies chest congestion Meds Home Medications Medication Instructions Recorded Confirmed Type Acetaminophen 500 mg PO Q6HP PRN 07/15/17 07/15/17 History Aspirin [Adult Aspirin Regimen] 81 mg PO DAILY 07/15/17 07/15/17 History Atorvastatin Calcium [Atorvastatin 80 mg PO HS 07/15/17 07/15/17 History 80mg Tab] Bisoprolol Fumarate [Zebeta 5mg 5 mg PO DAILY 07/15/17 07/15/17 History tablet] Budesonide/Formoterol Fumarate 4.5 gm IH BID 07/15/17 07/15/17 History [Symbicort 160-4.5 Mcg Inhaler] Clopidogrel Bisulfate [Plavix 75mg 75 mg PO DAILY 07/15/17 07/15/17 History Tab] Furosemide [Lasix 40mg tab] 40 mg PO BID 07/15/17 07/15/17 History Ipratropium/Albuterol Sulfate 1 puff IH Q4HP PRN 07/15/17 07/15/17 History [Combivent Respimat Inh] Metformin HCl 1,000 mg PO BID 07/15/17 07/15/17 History Miscellaneous [Unknown Home 1 each NOTAPPLIC CONSULT PHARMACY 07/15/17 07/15/17 History Medication] Pantoprazole Sodium [Protonix 40mg 40 mg PO DAILY 07/15/17 07/15/17 History tablet] Spironolactone [Spironolactone 25 mg PO BID 07/15/17 07/15/17 History 25mg Tab] Allergies Allergy/AdvReac T
--- NOTE | 2017-07-16 08:06 | PC.NURSE ---
REPORT HAND OFF TO Kiran TATE. AND Sandra LINDSEY
[2017-07-16 20:51] LABS: POC Glucose,Bedside 254 mg/dL
[2017-07-16 20:51] LABS: POC Glucose,Bedside 472 mg/dL
[2017-07-16 20:51] LABS: POC Glucose,Bedside 300 mg/dL
[2017-07-17] VITALS: BP 153/84; PULSE 100; PULSE 99; RESP 30; TEMP 37.4; O2SAT 93
--- NOTE | 2017-07-17 00:15 | PC.NURSE ---
NURSE NOTIFIED OF PTS RESPIRATIONS
--- NOTE | 2017-07-17 02:14 | PC.NURSE ---
PT REPORTS SOA AT REST. HE DENIES PAIN AND REPORTS A GOOD APPETITE. NSR ON TELEMETRY. HE HAS RESTED PERIODICALLY T/O THE NIGHT.
[2017-07-17 04:00] VITALS: BP 126/67; PULSE 110; PULSE 92; RESP 24; TEMP 37; O2SAT 99
[2017-07-17 05:41] LABS: POC Glucose,Bedside 319 mg/dL
[2017-07-17 06:00] LABS: Basophils % 0.2 % (0.1-2.0); Eosinophils % 0.4 % (0.1-12.0); Hematocrit 27.2 % (42.0-52.0); Hemoglobin 8.3 g/dL (14.1-18.0); Lymphocytes # 0.9 K/mm3 (0.7-4.5); Lymphocytes % 10.2 K/mm3 (10-50); Mean Corpuscular HGB Conc 30.7 g/dL (31.8-35.4); Mean Corpuscular Hemoglobin 29.6 pg (27.0-31.2); Mean Corpuscular Volume 96.3 fl (80-94); Mean Platelet Volume 7.4 fl (7.4-10.4); Monocytes # 0.5 K/mm3 (0.1-1.0); Monocytes % 5.2 % (1.7-9.3); Neutrophils # 7.3 K/mm3 (1.8-7.8); Neutrophils % 84.1 % (37.0-80.0); Platelet Count 216 K/mm3 (142-424); Red Blood Count 2.82 M/mm3 (4.60-6.20); Red Cell Distribution Width 14.5 % (11.5-17.5); White Blood Count 8.7 K/mm3 (4.8-10.8)
[2017-07-17 06:11] LABS: Anion Gap 10.7 mEq/L (5-15); Blood Urea Nitrogen 15 mg/dL (7-18); Carbon Dioxide 33 mmol/L (21.0-32.0); Chloride 100 mmol/L (98-107); Creatinine Clearance Estimated 81 mL/min (0-300); Creatinine,Serum 1.11 mg/dL (0.70-1.30); Estimated Glomerular Filt Rate 66 ml/min (>60); GFR (African American) 79 ML/MIN (>60); Glucose 294 mg/dL (74-106); Potassium 4.7 mmoL/L (3.5-5.1); Sodium 139 mmol/L (136-145)
--- NOTE | 2017-07-17 07:56 | HMH.DCSUM ---
General - General Admission date: 07/15/17 Discharge date: 07/17/17 HPI HPI: 71-year-old white male with multiple cardiac and pulmonary problems including recent stay at [facility] for atrial ventricular accessory tract ablation and defibrillator and pacemaker implantation in the last part of June and a stay at [facility] for the first 5 days of July with bacterial pneumonia and hypoxia with acidosis. While there he was also discovered to have a pulmonary nodule and has follow-up with pulmonary at [facility] this week. Unfortunately, yesterday afternoon he began to feel very short of air and had feelings of chest pressure. Brought to the emergency department here where workup revealed negative cardiac enzymes but had a positive chest scan for multiple pulmonary embolism appearance in the left lower lung field along with the aforementioned pulmonary mass. He was admitted after 1 dose of Lovenox for ongoing anticoagulation therapy. This morning he states that he feels much better already, denies chest pain or current shortness of air. Objective Vital signs: Temp Pulse Resp BP Pulse Ox 98.6 F 92 H 24 126/67 99 07/17/17 04:00 07/17/17 04:00 07/17/17 04:00 07/17/17 04:00 07/17/17 04:00 Narrative: This morning the patient is alert, awake, on his normal oxygen at 2 L nasal cannula and feels good, wishes to be discharged home. Heart rate regular with normal sinus rhythm. Blood pressure is normal. Abdomen is soft and nontender. He has good distal perfusion. Lungs have scattered rhonchi consistent with his known emphysematous disease. Hospital Course Hospital Course: Patient was admitted after CT scan in the emergency department demonstrated pulmonary embolism. He also had a suspicious chest mass. He was started on Lovenox and after I saw him on admission rounds initiated Xarelto therapy. He tolerated this well through the day yesterday and this morning is hemodynamically stable and tolerating Xarelto well. He will be discharged home today on Xarelto given his pulmonary stability. He has an appointment with cardiology at [facility] this week. We will give him his CAT scan reports and he will follow-up with that specialty service for pulmonary referral for this pulmonary mass and for the blood clot issues. Results Labs on day of discharge: Labs from last 24 hours 07/17/17 07/17/1707/17/18 05:31 05:00 05:00 WBC 8.7 RBC 2.82 L Hgb 8.3 L Hct 27.2 L MCV 96.3 H MCH 29.6 MCHC 30.7 L RDW 14.5 Plt Count 216 MPV 7.4 Neut % (Auto) 84.1 H Lymph % (Auto) 10.2 [place] % (Auto) 5.2 Eos % (Auto) 0.4 Baso % (Auto) 0.2 Neut # (Auto) 7.3 Lymph # (Auto) 0.9 [place] # (Auto) 0.5 Eos # (Auto) 0.0 Baso # (Auto) 0.0 Sodium 139 Potassium 4.7 Chloride 100 Carbon Dioxide 33 H Anion Gap 10.7 BUN 15 D Creatinine 1.11 Estimated Creat Clear 81 Estimated GFR 66 Est GFR ( Amer) 79 Glucose 294 H POC Glucose 319 07/16/17 07/16/17 07/16/17 20:33 16:59 11:35 WBC RBC Hgb Hct MCV MCH MCHC RDW Plt Count MPV Neut % (Auto) Lymph % (Auto) [place] % (Auto) Eos % (Auto) Baso % (Auto) Neut # (Auto) Lymph # (Auto) [place] # (Auto) Eos # (Auto) Baso # (Auto) Sodium Potassium Chloride Carbon Dioxide Anion Gap BUN Creatinine Estimated Creat Clear Estimated GFR Est GFR ( Amer) Glucose POC Glucose 300 254 472 DS: Diagnosis - Discharge Diagnosis (1) COPD (chronic obstructive pulmonary disease) Status: Acute (2) Diabetes Status: Acute (3) Lung nodule < 6cm on CT Status: Acute (4) Pedal edema Status: Acute (5) Pulmonary embolism Status: Acute (6) CHF (congestive heart failure) Status: Acute (7) COPD (ch
[2017-07-17 08:00] VITALS: BP 142/75; PULSE 95; RESP 22; TEMP 36.7; O2SAT 99
--- NOTE | 2017-07-17 08:01 | P.DS_ITS ---
General - General Admission date: 07/15/17 Discharge date: 07/17/17 HPI HPI: 71-year-old white male with multiple cardiac and pulmonary problems including recent stay at [facility] for atrial ventricular accessory tract ablation and defibrillator and pacemaker implantation in the last part of June and a stay at [facility] for the first 5 days of July with bacterial pneumonia and hypoxia with acidosis. While there he was also discovered to have a pulmonary nodule and has follow-up with pulmonary at [facility] this week. Unfortunately, yesterday afternoon he began to feel very short of air and had feelings of chest pressure. Brought to the emergency department here where workup revealed negative cardiac enzymes but had a positive chest scan for multiple pulmonary embolism appearance in the left lower lung field along with the aforementioned pulmonary mass. He was admitted after 1 dose of Lovenox for ongoing anticoagulation therapy. This morning he states that he feels much better already, denies chest pain or current shortness of air. Objective Vital signs: Temp Pulse Resp BP Pulse Ox 98.6 F 92 H 24 126/67 99 07/17/17 04:00 07/17/17 04:00 07/17/17 04:00 07/17/17 04:00 07/17/17 04:00 Narrative: This morning the patient is alert, awake, on his normal oxygen at 2 L nasal cannula and feels good, wishes to be discharged home. Heart rate regular with normal sinus rhythm. Blood pressure is normal. Abdomen is soft and nontender. He has good distal perfusion. Lungs have scattered rhonchi consistent with his known emphysematous disease. Hospital Course Hospital Course: Patient was admitted after CT scan in the emergency department demonstrated pulmonary embolism. He also had a suspicious chest mass. He was started on Lovenox and after I saw him on admission rounds initiated Xarelto therapy. He tolerated this well through the day yesterday and this morning is hemodynamically stable and tolerating Xarelto well. He will be discharged home today on Xarelto given his pulmonary stability. He has an appointment with cardiology at [facility] this week. We will give him his CAT scan reports and he will follow-up with that specialty service for pulmonary referral for this pulmonary mass and for the blood clot issues. Results Labs on day of discharge: Labs from last 24 hours 07/17/17 07/17/1707/17/18 05:31 05:00 05:00 WBC 8.7 RBC 2.82 L Hgb 8.3 L Hct 27.2 L MCV 96.3 H MCH 29.6 MCHC 30.7 L RDW 14.5 Plt Count 216 MPV 7.4 Neut % (Auto) 84.1 H Lymph % (Auto) 10.2 [place] % (Auto) 5.2 Eos % (Auto) 0.4 Baso % (Auto) 0.2 Neut # (Auto) 7.3 Lymph # (Auto) 0.9 [place] # (Auto) 0.5 Eos # (Auto) 0.0 Baso # (Auto) 0.0 Sodium 139 Potassium 4.7 Chloride 100 Carbon Dioxide 33 H Anion Gap 10.7 BUN 15 D Creatinine 1.11 Estimated Creat Clear 81 Estimated GFR 66 Est GFR ( Amer) 79 Glucose 294 H POC Glucose 319 07/16/17 07/16/17 07/16/17 20:33 16:59 11:35 WBC RBC Hgb Hct MCV
[2017-07-17 16:41] LABS: POC Glucose,Bedside 338 mg/dL
[2017-08-03 14:03] LABS: POC Glucose,Bedside 518 mg/dL (70-110)
== END 2017-07-17 14:10 | disposition home or self-care (01) | DRG 175 ==
LOC: ER 15:31 → ICU 17:05
PROVIDERS: Admitting Provider Emergency Medicine; Emergency Provider Emergency Medicine; Family Provider Internal Medicine Adolescent Medicine; PCP Internal Medicine Adolescent Medicine; Visit Provider Internal Medicine Adolescent Medicine
DX: I26.99 Other pulmonary embolism without acute cor pulmonale (principal); J96.00 Acute respiratory failure, unspecified whether with hypoxia or hypercapnia; I50.43 Acute on chronic combined systolic (congestive) and diastolic (congestive) heart failure; J44.1 Chronic obstructive pulmonary disease with (acute) exacerbation; I11.0 Hypertensive heart disease with heart failure; I25.10 Atherosclerotic heart disease of native coronary artery without angina pectoris; E11.9 Type 2 diabetes mellitus without complications; E78.5 Hyperlipidemia, unspecified; R91.1 Solitary pulmonary nodule; I16.0 Hypertensive urgency; Z95.810 Presence of automatic (implantable) cardiac defibrillator; Z88.2 Allergy status to sulfonamides; Z88.8 Allergy status to other drugs, medicaments and biological substances; I25.2 Old myocardial infarction; Z87.891 Personal history of nicotine dependence; Z83.3 Family history of diabetes mellitus; Z82.49 Family history of ischemic heart disease and other diseases of the circulatory system; Z83.49 Family history of other endocrine, nutritional and metabolic diseases; Z79.84 Long term (current) use of oral hypoglycemic drugs; Z79.02 Long term (current) use of antithrombotics/antiplatelets; Z79.82 Long term (current) use of aspirin; Z79.899 Other long term (current) drug therapy
CPT/HCPCS: 36415; 71046; 71275; 80048; 80053; 82550; 82553; 82962; 83735; 83880; 84484; 85025; 85378; 85730; 93041; 94640; 94760; 94761; 96365; 96372; 96375; 99282; J0456; Q9967

== ENCOUNTER 2017-07-17 14:56 | Observation (INO) | payer MEDICARE, BC, SELFPAY ==
[2017-07-17] VITALS (7 sets, daily range): BP systolic 127–154; BP diastolic 72–87; PULSE 88–114; RESP 22–26; TEMP 36.6–37.2; O2SAT 3–96; BMI 31.3; BMI 31.2
--- NOTE | 2017-07-17 15:02 | HMH.EDSOB ---
ED Disposition Clinical Impression: Elevated troponin, Respiratory acidosis, Anemia, Congestive heart failure, COPD exacerbation, Uncontrolled diabetes mellitus Disposition: Still a Patient Condition on Discharge: Fair Referrals: Roberto Carlos Cano MD [Primary Care Provider] - - Critical Care Critical Care Time: No Attestation: On , the high probability of a clinically significant, sudden or life threatening deterioration of the following system(s) required my full and direct attention, intervention and personal management. The time I documented below is in addition to time spent performing reported procedures but includes the following listed in this critical care notation. Medical Decision Making Vital Signs: 07/17/17 15:02 Temperature 98.6 F Temperature Source Oral Pulse Rate [Right Radial] 114 H Respiratory Rate 24 Blood Pressure [Right Arm] 130/72 Blood Pressure Mean [Right Arm] 91 Blood Pressure Source [Right Arm] Automatic Cuff Blood Pressure Position [Right Arm] Sitting 02 Sat by Pulse Oximetry 95 Oxygen Delivery Method Room Air - Lab Data Lab Results 07/17/17 15:08: Specimen Source L radial, O2 % 5lpm, ABG pH 7.32 L, ABG pCO2 57.0 H, ABG pO2 86.3, ABG HCO3 28.4 H, ABG Total CO2 30.2 H, ABG O2 Saturation 95, ABG Base Excess 2.3, [place] Test Acceptable 07/17/17 16:00: WBC 14.2 H D, RBC 3.03 L, Hgb 8.8 L, Hct 29.7 L, MCV 97.8 H, MCH 29.1, MCHC 29.7 L, RDW 14.4, Plt Count 233, MPV 9.0, Neut % (Auto) 90.5 H, Lymph % (Auto) 4.9 L, [place] % (Auto) 4.1, Eos % (Auto) 0.3, Baso % (Auto) 0.1, Neut # (Auto) 12.8 H, Lymph # (Auto) 0.7, [place] # (Auto) 0.6, Eos # (Auto) 0.0, Baso # (Auto) 0.0 07/17/17 16:00: Sodium 138, Potassium 5.4 H, Chloride 100, Carbon Dioxide 33 H, Anion Gap 10.4, BUN 17, Creatinine 1.34 H D, Estimated Creat Clear 67, Estimated GFR 53 L, Est GFR ( Amer) 64, Glucose 416 H* D, Calcium 8.0 L, Total Bilirubin 0.3, AST 34, ALT 42 D, Alkaline Phosphatase 125 H, Total Creatine Kinase 56, CK-MB (CK-2) 1.4 D, CK-MB (CK-2) Rel Index 2.5, Troponin I 0.15 H, Total Protein 7.0, Albumin 3.2 L, Globulin 3.8 H, Albumin/Globulin Ratio 0.8 L 07/17/17 16:00: B-Natriuretic Peptide 348 H 07/17/17 16:00: PT 14.4 H, INR 1.33 H, APTT 38.5 H D Result diagrams: 07/17/17 16:00 07/17/17 16:00 Orders (Tests/Meds): ED MEDICATIONS Generic Name Dose Route Start Last Admin Trade Name Freq PRN Reason Stop Dose Admin Sodium Chloride 2 ml 07/17/17 15:08 Saline Flush 10ml Syringe IV 08/16/17 15:07 NEEDED PRN to Dilute Lorazepam inj Discontinued Medications Generic Name Dose Route Start Last Admin Trade Name Freq PRN Reason Stop Dose Admin Lorazepam 0.5 mg 07/17/17 15:08 07/17/17 15:18 Ativan 2mg/Ml Vial IV 07/17/17 15:09 0.5 mg ONCE ONE Administration ORDERS Category Date Time Status Complete Blood Count Auto Diff Stat Lab 07/17/17 16:00 Results - Boom Inquiry Pt receiving controlled substance: No Boom was queried for this patient: No Medical Decision Making Narrative: Mr. Oconnor had no change in his CT scan. But he did have hypercarbic respiratory acidosis. Mild elevation of his troponin. Elevated BNP. Persistent anemia. Called Dr. Salinas was refrigeration technician for Dr. Cano who accepted to admit the patient. Resp/SOB HPI - General Stated Complaint: short of breath - History of Present Illness Mr. Oconnor is 71 years old white male with history of COPD and diabetes. I admitted him 2 days ago for new diagnosis of left lower lobe pulmonary embolus. He started on XA;LERTO 15 MG PO BID FOR anticoagulation and was discharged less than an hour ago. UPON arrival to the house he became shaky, nervous and complained of shortness of breath. He called the ambulance and he was waiting on them outside the house without his shirt. He complained of being short of breath although his chest was clear to auscultation. MD Complaint: shortness of breath Onset (ago): h
--- NOTE | 2017-07-17 15:06 | ED_ITS ---
ED Disposition Clinical Impression: Elevated troponin, Respiratory acidosis, Anemia, Congestive heart failure, COPD exacerbation, Uncontrolled diabetes mellitus Disposition: Still a Patient Condition on Discharge: Fair Referrals: Roberto Carlos Cano MD [Primary Care Provider] - - Critical Care Critical Care Time: No Attestation: On , the high probability of a clinically significant, sudden or life threatening deterioration of the following system(s) required my full and direct attention, intervention and personal management. The time I documented below is in addition to time spent performing reported procedures but includes the following listed in this critical care notation. Medical Decision Making Vital Signs: 07/17/17 15:02 Temperature 98.6 F Temperature Source Oral Pulse Rate [Right Radial] 114 H Respiratory Rate 24 Blood Pressure [Right Arm] 130/72 Blood Pressure Mean [Right Arm] 91 Blood Pressure Source [Right Arm] Automatic Cuff Blood Pressure Position [Right Arm] Sitting 02 Sat by Pulse Oximetry 95 Oxygen Delivery Method Room Air - Lab Data Lab Results 07/17/17 15:08: Specimen Source L radial, O2 % 5lpm, ABG pH 7.32 L, ABG pCO2 57.0 H, ABG pO2 86.3, ABG HCO3 28.4 H, ABG Total CO2 30.2 H, ABG O2 Saturation 95, ABG Base Excess 2.3, [place] Test Acceptable 07/17/17 16:00: WBC 14.2 H D, RBC 3.03 L, Hgb 8.8 L, Hct 29.7 L, MCV 97.8 H, MCH 29.1, MCHC 29.7 L, RDW 14.4, Plt Count 233, MPV 9.0, Neut % (Auto) 90.5 H, Lymph % (Auto) 4.9 L, [place] % (Auto) 4.1, Eos % (Auto) 0.3, Baso % (Auto) 0.1, Neut # (Auto) 12.8 H, Lymph # (Auto) 0.7, [place] # (Auto) 0.6, Eos # (Auto) 0.0, Baso # (Auto) 0.0 07/17/17 16:00: Sodium 138, Potassium 5.4 H, Chloride 100, Carbon Dioxide 33 H, Anion Gap 10.4, BUN 17, Creatinine 1.34 H D, Estimated Creat Clear 67, Estimated GFR 53 L, Est GFR ( Amer) 64, Glucose 416 H* D, Calcium 8.0 L, Total Bilirubin 0.3, AST 34, ALT 42 D, Alkaline Phosphatase 125 H, Total Creatine Kinase 56, CK-MB (CK-2) 1.4 D, CK-MB (CK-2) Rel Index 2.5, Troponin I 0.15 H, Total Protein 7.0, Albumin 3.2 L, Globulin 3.8 H, Albumin/Globulin Ratio 0.8 L 07/17/17 16:00: B-Natriuretic Peptide 348 H 07/17/17 16:00: PT 14.4 H, INR 1.33 H, APTT 38.5 H D Result diagrams: 07/17/17 16:00 07/17/17 16:00 Orders (Tests/Meds): ED MEDICATIONS Generic Name Dose Route Start Last Admin Trade Name Freq PRN Reason Stop Dose Admin Sodium Chloride 2 ml 07/17/17 15:08 Saline Flush 10ml Syringe IV 08/16/17 15:07 NEEDED PRN to Dilute Lorazepam inj Discontinued Medications Generic Name Dose Route Start Last Admin Trade Name Freq PRN Reason Stop Dose Admin Lorazepam 0.5 mg 07/17/17 15:08 07/17/17 15:18 Ativan 2mg/Ml Vial IV 07/17/17 15:09 0.5 mg ONCE ONE Administration ORDERS Category Date Time Status Complete Blood Count Auto Diff Stat Lab 07/17/17 16:00 Results - Boom Inquiry Pt receiving controlled substance: No Boom was queried for this patient: No Medical Decision Making Narrative: Mr. Oconnor had no change in his CT scan. But he did have hypercarbic respiratory acidosis. Mild elevation of his troponin. Elevated BNP. Persistent anemia. Called Dr. Salinas was mediation commissioner for Dr. Cano who accepted to admit the patient. Resp/SOB HPI - General
[2017-07-17 15:35] LABS: ABG Base Excess 2.3 mmol/L (-2.4-2.3); ABG HCO3 28.4 mmhg (22.0-26.0); ABG Oxygen Saturation 95 % (90-100); ABG PH 7.32 mmol/L (7.35-7.45); ABG PO2 86.3 mmhg (80-100); ABG TCO2 30.2 mmhg (23-27)
[2017-07-17 15:37] LABS: Allen's Test ACCEPTABLE; Oxygen 5LPM %; Source L RADIAL
[2017-07-17 16:10] LABS: Basophils % 0.1 % (0.1-2.0); Eosinophils % 0.3 % (0.1-12.0); Hematocrit 29.7 % (42.0-52.0); Hemoglobin 8.8 g/dL (14.1-18.0); Lymphocytes # 0.7 K/mm3 (0.7-4.5); Lymphocytes % 4.9 K/mm3 (10-50); Mean Corpuscular HGB Conc 29.7 g/dL (31.8-35.4); Mean Corpuscular Hemoglobin 29.1 pg (27.0-31.2); Mean Corpuscular Volume 97.8 fl (80-94); Monocytes # 0.6 K/mm3 (0.1-1.0); Monocytes % 4.1 % (1.7-9.3); Neutrophils # 12.8 K/mm3 (1.8-7.8); Neutrophils % 90.5 % (37.0-80.0); Platelet Count 233 K/mm3 (142-424); Red Blood Count 3.03 M/mm3 (4.60-6.20); Red Cell Distribution Width 14.4 % (11.5-17.5); White Blood Count 14.2 K/mm3 (4.8-10.8)
--- NOTE | 2017-07-17 16:10 | CT_ITS ---
CT angio chest HISTORY: Shortness of air, follow-up pulmonary embolus ITS.REASON: SOA ORDERING PHYSICIAN: Sharon Ornelas MD PATIENT AGE: 71 years TECHNIQUE: Axial images obtained following the administration of 75 mL of Isovue 370 . Sagittal, and coronal reformatted images are also generated and reviewed. COMPARISON: None FINDINGS: Persistent thrombus is noted within the anterior basilar segmental artery of the left lower lobe this is slightly improved. No new emboli are evident. No saddle emboli. No evidence of aortic aneurysm. There are isodense changes within the left jugular vein. Previously contrast refluxed up into the jugular vein. Injection is in the left upper extremity and both the previous exam and today's exam. Thrombosis of left jugular vein is a consideration. Nonopacification is also considered. Some mild right apical nodularity and may be related to pleural thickening. Fibrotic/atelectatic changes are once again noted in the lower lobes. There are scattered blebs noted. Prominent osteophyte is present in the right paraspinal region in the lower thoracic spine with adjacent atelectasis slightly worse on today's exam. Atelectatic changes are present bases slightly worse. Faint nodularity posterior aspect right upper lobe and may be related to some underlying pneumonia Previously noted irregular opacity in the left lower lobe is unchanged somewhat obscured by motion artifact. Long-term follow-up suggested. There is mild cardiomegaly. There is evidence of old granulomatous disease. There are small bilateral pleural effusions. Yumi changes are present in the thoracic spine. IMPRESSION: 1. Persistent thrombus in the anterior basilar segmental artery of the left lower lobe. Thrombus is very slightly improved distally. No new emboli evident. 2. Possible thrombosis of left jugular vein versus nonopacification. 3. Increasing atelectasis or infiltrate in the right paraspinal region adjacent to a prominent spur with possible patchy infiltrate in the right upper lobe posteriorly with chronic pleural parenchymal changes noted and small bilateral pleural effusions. 4. No change left lower lobe nodule.
[2017-07-17 16:16] LABS: MANUAL DIFFERENTIAL MANUAL DIFFERENTIAL (MANUAL DIFF)
[2017-07-17 16:25] LABS: INR 1.33 (0.9-1.1); Prothrombin Time 14.4 seconds (9.4-11.8)
[2017-07-17 16:30] LABS: Activated Partial Thrombo Time 38.5 seconds (23.6-34.0)
[2017-07-17 16:42] LABS: Alanine Aminotransferase 42 U/L (12-78); Albumin Level 3.2 gm/dL (3.4-5.0); Albumin/Globulin Ratio 0.8 (1.1-1.8); Alkaline Phosphatase 125 U/L (46-116); Anion Gap 10.4 mEq/L (5-15); Aspartate Amino Transferase 34 U/L (15-37); Bilirubin,Total 0.3 mg/dL (0.2-1.0); Blood Urea Nitrogen 17 mg/dL (7-18); CKMB Relative Index 2.5 U/L (0-4.0); Carbon Dioxide 33 mmol/L (21.0-32.0); Chloride 100 mmol/L (98-107); Creatine Kinase 56 U/L (39-308); Creatine Kinase MB 1.4 mg/ml (0.0-3.6); Creatinine Clearance Estimated 67 mL/min (0-300); Creatinine,Serum 1.34 mg/dL (0.70-1.30); Estimated Glomerular Filt Rate 53 ml/min (>60); GFR (African American) 64 ML/MIN (>60); Globulin 3.8 gm/dl (1.3-3.2); Potassium 5.4 mmoL/L (3.5-5.1); Sodium 138 mmol/L (136-145); Troponin I 0.15 ng/ml (0.00-0.06)
[2017-07-17 16:43] LABS: Glucose 416 mg/dL (74-106)
[2017-07-17 17:45] LABS: Eosinophils % 1 % (0-3); Lymphocytes % 4 % (10-50); Monocytes % 3 % (2-9); Neutrophils % 91 % (42-76); Total Cells Counted 100
[2017-07-17 17:46] LABS: Platelet Estimate Normal; RBC Morphology Normal
[2017-07-17 18:45] LABS: Troponin I 0.17 ng/ml (0.00-0.06)
--- NOTE | 2017-07-17 19:06 | PC.NURSE ---
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 NEED FINGERSTICKS AND INSULIN ORDERED- PT HAS AN ADMITTING DIAGNOSIS OF UNCONTROLLED DIABETES. ALSO NEED BREATHING TREATMENTS.
[2017-07-18] VITALS (11 sets, daily range): BP systolic 135–159; BP diastolic 77–92; PULSE 71–100; RESP 21–28; TEMP 36.3–37.2; O2SAT 97–98
[2017-07-18 00:14] LABS: Troponin I 0.27 ng/ml (0.00-0.06)
[2017-07-18 01:04] LABS: POC Glucose,Bedside 401 mg/dL
--- NOTE | 2017-07-18 02:53 | PC.NURSE ---
Addendum entered by Jessica Ospina RN 07/18/17 03:37: MD ALSO MADE AWARE OF PE NOTED ON CT SCAN. Original Note: ROUND 2100 DIRECTOR OF FLIGHT OPERATIONS CALLED TO ALIYAH GIBSON CERTIFIED DETENTION DEPUTY FOR COLLEEN, DIRECTOR OF FLIGHT OPERATIONS STATED DR. MACIAS IS CERTIFIED DETENTION DEPUTY FOR HIMSELF AND IS IN THE ER, WOULD YOU LIKE ME TO TRANSFER YOU TO THE ED. RN ACCEPTED OFFER TO TRANSFER TO ED, ONCE MD CONTACTED, MD STATED LET ME CALL YOU BACK. NO RESPONSE, AROUND 2234 RN CALLED ED AGAIN TO NOTIFY MD FEELINGS OF SOA, REQUESTS FOR BREATHING TREATMENT, S/S OF ANXIOUSNESS NOTED, DIAGNOSIS OF UNCONTROLLED DIABETES NO FSBS OF SSI INSULIN NOTED. PT NOTED HYPERVENTILATING AND WOULD BEGIN TO CUSS AT STAFF, REQUESTING OXYGEN TO BE INCREASED TO 5LNC. NURSING STAFF WOULD EDUCATE PT ON COPD AND USE OF TOO MUCH OXYGEN COULD CAUSE CO2 INCREASE AND COULD CAUSE LETHARGY/RESPIRATORY DEPRESSION. ON ASSESSMENT, LUNGS CLEAR T/O AUSCULTATION, O2 SATS NOTED 90'S AND ABOVE OF 3LNC. DOES USE INHALERS AT HOME BUT DOES NOT HAVE WITH HIM. RN DID OBTAIN FSBS AROUND 1999, FSBS RESULTED 401. ORDERED 1 MG ATIVAN IV GIVE ONE TIME, FSBS ACHS WITH MEDIUM INTENSITY SSI, AND DUONEB Q4H PRN.
--- NOTE | 2017-07-18 03:01 | PC.NURSE ---
FOLLOWING ADMINISTRATION OF ATIVAN PER AUG, PT SLEEPING WELL. DROWSY BUT AROUSES TO VERBAL STIMULI. TOLERATED 3LNC WELL. NSR WITH PAC/PVC NOTED PER CORPORATE LEGAL MANAGER. VSS. WILL CONTINUE TO MONITOR.
[2017-07-18 06:47] LABS: POC Glucose,Bedside 150 mg/dL
[2017-07-18 06:59] LABS: Basophils % 0.2 % (0.1-2.0); Eosinophils # 0.1 K/mm3 (0.0-0.4); Eosinophils % 0.6 % (0.1-12.0); Hematocrit 27.6 % (42.0-52.0); Hemoglobin 8.4 g/dL (14.1-18.0); Lymphocytes # 0.8 K/mm3 (0.7-4.5); Lymphocytes % 8.9 K/mm3 (10-50); Mean Corpuscular HGB Conc 30.3 g/dL (31.8-35.4); Mean Corpuscular Hemoglobin 29.3 pg (27.0-31.2); Mean Corpuscular Volume 96.6 fl (80-94); Mean Platelet Volume 7.6 fl (7.4-10.4); Monocytes # 0.5 K/mm3 (0.1-1.0); Monocytes % 5.8 % (1.7-9.3); Neutrophils # 7.7 K/mm3 (1.8-7.8); Neutrophils % 84.4 % (37.0-80.0); Platelet Count 225 K/mm3 (142-424); Red Blood Count 2.85 M/mm3 (4.60-6.20); Red Cell Distribution Width 14.3 % (11.5-17.5); White Blood Count 9.1 K/mm3 (4.8-10.8)
[2017-07-18 07:14] LABS: Anion Gap 8.3 mEq/L (5-15); Blood Urea Nitrogen 16 mg/dL (7-18); Carbon Dioxide 35 mmol/L (21.0-32.0); Chloride 105 mmol/L (98-107); Creatinine Clearance Estimated 84 mL/min (0-300); Creatinine,Serum 1.06 mg/dL (0.70-1.30); Estimated Glomerular Filt Rate 69 ml/min (>60); GFR (African American) 84 ML/MIN (>60); Glucose 145 mg/dL (74-106); Potassium 5.3 mmoL/L (3.5-5.1); Sodium 143 mmol/L (136-145)
--- NOTE | 2017-07-18 07:18 | HMH.PHAVTE ---
[facility] VTE Monitoring - Patient Demographics Admission date: 07/17/17 Report Date: 07/18/17 Time: 07:18 Allergies/Adverse Reactions: Patient Allergies Sulfa (Sulfonamide Antibiotics) [SULFA (SULFONAMIDE ANTIBIOTICS)] Allergy (Intermediate, Verified 06/29/17 11:51) I-RASH fluticasone [From ADVAIR DISKUS] Allergy (Mild, Verified 06/29/17 11:52) NA-NAUSEA/VOMITING salmeterol [From ADVAIR DISKUS] Allergy (Mild, Verified 06/29/17 11:51) NA-NAUSEA/VOMITING Height: 1.7 m Weight: 90.492 kg Patient Problems: Current Active Problems CHF (congestive heart failure) (Acute) COPD exacerbation (Acute) Elevated troponin (Acute) Respiratory acidosis (Acute) Anemia (Acute) Uncontrolled diabetes mellitus (Acute) - VTE Risk Labs: VTE Related Lab Results Hgb 8.4 g/dL (14.1-18.0) L 07/18/17 06:10 Hct 27.6 % (42.0-52.0) L 07/18/17 06:10 Plt Count 225 K/mm3 (142-424) 07/18/17 06:10 PT 14.4 seconds (9.4-11.8) H 07/17/17 16:00 INR 1.33 (0.9-1.1) H 07/17/17 16:00 APTT 38.5 seconds (23.6-34.0) H D 07/17/17 16:00 BUN 16 mg/dL (7-18) 07/18/17 06:10 Creatinine 1.06 mg/dL (0.70-1.30) D 07/18/17 06:10 Estimated Creat Clear 84 mL/min (0-300) 07/18/17 06:10 Clinical Trial Participant: No - Prophylaxis VTE Prophylaxis Ordered?: Yes Types of VTE Prophylaxis: TEDS Knee High
--- NOTE | 2017-07-18 08:05 | PC.NURSE ---
NOTIFIED MD ON AM ROUNDS OF FAMILY REQUESTING PLACEMENT FOR PATIENT AND NEED FOR PRN ANXIETY MEDICATION ORDERED.
--- NOTE | 2017-07-18 08:12 | HMH.HPDC ---
General - General Admission date: 07/17/17 Discharge date: 07/18/17 *Admission Date: 07/17/17 *Chief complaint: Dyspnea *History of present illness: 71-year-old white male with complex medical history including ischemic coronary disease status post multiple stent placements, atrial fibrillation with AV node ablation and pacemaker implantation at [facility] 2 weeks ago, and recent evaluation at [facility] for CHF and ischemic heart disease last week. He came to our local hospital 3 days ago with new onset shortness of air and diaphoresis. Workup in the emergency department revealed negative troponins, stable EKG findings but CT scan revealed new pulmonary embolism evidence in the left lower lung field with multiple small PEs. He also had a very suspicious lung mass which is apparently new. He was admitted and placed on Lovenox and started on Xarelto for anticoagulation and the following day felt well. He was discharged home on July 17 with oxygen, Xarelto prescription and follow-up with his buffing machine operator semiautomatic at [facility] to evaluate his new anticoagulation status and also to begin workup on the lung mass through the [place] system at his request. After about 2 hours of being home he became more short of air and called the ambulance. He was brought back to the emergency department where he was found to have essentially baseline labs but was found to have a mild respiratory acidosis from hypoventilation and was admitted to the hospital overnight. This morning he feels better but states I need to go to [facility]. He reports that he does not think he can go home because he gets short of breath with any exertional activity. His had no problems with the coagulation therapy. Denies bleeding complications, denies new chest pain. [facility] History I have reviewed the patient's past medical history: Yes Medical History: Reports:: Congestive Heart Failure, Coronary Artery Disease, Diabetes Mellitus Type 2, Hyperlipidemia, Hypertension, Internal Pacemaker, Myocardial Infarction Denies:: Cancer, Diabetes Mellitus Type 1, MRSA Other Medical History: Reports: Anemia Other Surgeries: Yes: Cardiac Catheterization, Pacemaker Amputation: No Fractures: Yes (L TIB/FIB, L PELVIS, L COLLAR BONE, L RIBS) - *Social History Smoking Status: Light tobacco smoker Tobacco Type: cigarettes Alcohol Intake: never Occupational Status: unemployed, retired Housing: house Household Members: significant other - Psychiatric History Expresses thoughts of harming self/others: None Suicide Plan Description: No Plan *Family Hx:: Diabetes, Heart Attack, Hyperlipidemia, Hypertension Review of Systems - Review of Systems Review of systems:: unable to obtain, other, pertinent systems reviewed and negative unless documented below - Constitutional Reports fatigue, Reports lack of energy, Reports malaise - Eyes Denies change in vision - ENT Denies abnormal hearing - *Cardiovascular Reports shortness of breath, Reports shortness of breath with activity, Reports lightheadedness, Denies chest pain, Denies chest pain at rest, Denies chest pain with activity, Denies irregular heart rhythm - *Respiratory Reports shortness of breath, Reports shortness of breath with activity, Denies chest congestion, Denies cough - *Gastrointestinal Denies abdominal pain - *Genitourinary Denies difficulty urinating - *Neurologic Denies abnormal movements, Denies behavioral changes, Denies seizure-like activity - Endocrine Denies cold intolerance, Denies excessive sweating - Hematologic/Lymphatic Denies easy bleeding Exam Vital signs and Labs for Last 24 Hours: Temp Pulse Resp BP Pulse Ox 98.2 F 92 H 22 144/77 97 07/18/17 07:56 07/18/17 07:56 07/18/17 07:56 07/18/17 07:56 07/18/17 07:56 Laboratory Results - last 24 hr 07/17/17 20:16: POC Glucose 401 07/17/17 23:30: Troponin I 0.27
--- NOTE | 2017-07-18 08:15 | P.SWB_ITS ---
General - General Admission date: 07/17/17 Discharge date: 07/18/17 *Admission Date: 07/17/17 *Chief complaint: Dyspnea *History of present illness: 71-year-old white male with complex medical history including ischemic coronary disease status post multiple stent placements, atrial fibrillation with AV node ablation and pacemaker implantation at [facility] in [facility] 2 weeks ago, and recent evaluation at [facility] for CHF and ischemic heart disease last week. He came to our local hospital 3 days ago with new onset shortness of air and diaphoresis. Workup in the emergency department revealed negative troponins, stable EKG findings but CT scan revealed new pulmonary embolism evidence in the left lower lung field with multiple small PEs. He also had a very suspicious lung mass which is apparently new. He was admitted and placed on Lovenox and started on Xarelto for anticoagulation and the following day felt well. He was discharged home on July 17 with oxygen, Xarelto prescription and follow-up with his tax credit leasing consultant at [facility] to evaluate his new anticoagulation status and also to begin workup on the lung mass through the [place] system at his request. After about 2 hours of being home he became more short of air and called the ambulance. He was brought back to the emergency department where he was found to have essentially baseline labs but was found to have a mild respiratory acidosis from hypoventilation and was admitted to the hospital overnight. This morning he feels better but states I need to go to [facility]. He reports that he does not think he can go home because he gets short of breath with any exertional activity. His had no problems with the coagulation therapy. Denies bleeding complications, denies new chest pain. [facility] History I have reviewed the patient's past medical history: Yes Medical History: Reports:: Congestive Heart Failure, Coronary Artery Disease, Diabetes Mellitus Type 2, Hyperlipidemia, Hypertension, Internal Pacemaker, Myocardial Infarction Denies:: Cancer, Diabetes Mellitus Type 1, MRSA Other Medical History: Reports: Anemia Other Surgeries: Yes: Cardiac Catheterization, Pacemaker Amputation: No Fractures: Yes (L TIB/FIB, L PELVIS, L COLLAR BONE, L RIBS) - *Social History Smoking Status: Light tobacco smoker Tobacco Type: cigarettes Alcohol Intake: never Occupational Status: unemployed, retired Housing: house Household Members: significant other - Psychiatric History Expresses thoughts of harming self/others: None Suicide Plan Description: No Plan *Family Hx:: Diabetes, Heart Attack, Hyperlipidemia, Hypertension Review of Systems - Review of Systems Review of systems:: unable to obtain, other, pertinent systems reviewed and negative unless documented below - Constitutional Reports fatigue, Reports lack of energy, Reports malaise - Eyes Denies change in vision - ENT Denies abnormal hearing - *Cardiovascular Reports shortness of breath, Reports shortness of breath with activity, Reports lightheadedness, Denies chest pain, Denies chest pain at rest, Denies chest pain with activity, Denies irregular heart rhythm - *Respiratory Reports shortness of breath, Reports shortness of breath with activity, Denies chest congestion, Denies cough - *Gastrointestinal Denies abdominal pain - *Genitourinary Denies difficulty urinating - *Neurologic Denies abnormal movements, Denies behavioral changes, Denies seizure-like activity - Endocrine Denies cold intolera
--- NOTE | 2017-07-18 17:01 | SW/DCPLANNER ---
PATIENT IS TRANFERRING TO [facility] MD AND PATIENTS REQUEST...
[2017-08-02 14:49] LABS: POC Glucose,Bedside 259 mg/dL (70-110)
[2017-08-02 14:51] LABS: POC Glucose,Bedside 378 mg/dL (70-110)
== END 2017-07-18 17:10 | disposition short-term general hospital (02) ==
LOC: ER 17:30 → 2ND 18:38
PROVIDERS: Admitting Provider Emergency Medicine; Emergency Provider Emergency Medicine; Family Provider Internal Medicine Adolescent Medicine; PCP Internal Medicine Adolescent Medicine; Visit Provider Internal Medicine Adolescent Medicine
DX: I26.99 Other pulmonary embolism without acute cor pulmonale (principal); R91.8 Other nonspecific abnormal finding of lung field; I25.10 Atherosclerotic heart disease of native coronary artery without angina pectoris; I50.9 Heart failure, unspecified; I11.0 Hypertensive heart disease with heart failure; R74.8 Abnormal levels of other serum enzymes; I25.2 Old myocardial infarction; F17.210 Nicotine dependence, cigarettes, uncomplicated; D64.9 Anemia, unspecified; J43.9 Emphysema, unspecified; E87.2 Acidosis; Z79.01 Long term (current) use of anticoagulants; Z95.5 Presence of coronary angioplasty implant and graft; Z83.3 Family history of diabetes mellitus; Z82.49 Family history of ischemic heart disease and other diseases of the circulatory system; Z83.49 Family history of other endocrine, nutritional and metabolic diseases; Z95.0 Presence of cardiac pacemaker
CPT/HCPCS: 36415; 71275; 80048; 80053; 82550; 82553; 82803; 82962; 83880; 84484; 85007; 85025; 85610; 85730; 93005; 94640; 94760; 96374; 99284; G0378

== ENCOUNTER 2017-08-26 12:12 | Observation (INO) ==
--- NOTE | 2017-08-26 12:06 | Emergency Department Note ---
ED Disposition Clinical Impression: CHF (congestive heart failure), NYHA class IV, COPD (chronic obstructive pulmonary disease), CAD (coronary artery disease), Pneumonia, Pulmonary embolism Disposition: Still a Patient Condition on Discharge: Fair - Critical Care Critical Care Time: No Attestation: On , the high probability of a clinically significant, sudden or life threatening deterioration of the following system(s) required my full and direct attention, intervention and personal management. The time I documented below is in addition to time spent performing reported procedures but includes the following listed in this critical care notation. Medical Decision Making - Boom Inquiry Pt receiving controlled substance: No Boom was queried for this patient: No Vital Signs: 08/26/17 12:02 Temperature 98.2 F Temperature Source Temporal Artery Scan Pulse Rate [Right Brachial] 113 H Respiratory Rate 26 H Blood Pressure [Right Arm] 132/56 Blood Pressure Mean [Right Arm] 81 Blood Pressure Source [Right Arm] Automatic Cuff Blood Pressure Position [Right Arm] Sitting 02 Sat by Pulse Oximetry 90 L Oxygen Delivery Method Nasal Cannula Oxygen Flow Rate (LPM) 3 - Lab Data Lab Results 08/26/17 12:00: WBC 9.5, RBC 3.55 L, Hgb 10.2 L, Hct 33.9 L, MCV 95.4 H, MCH 28.6, MCHC 30.0 L, RDW 15.3, Plt Count 354, MPV 7.4, Neut % (Auto) 68.6, Lymph % (Auto) 24.1, Mccormick % (Auto) 6.1, Eos % (Auto) 1.0, Baso % (Auto) 0.2, Neut # ( Auto) 6.5, Lymph # (Auto) 2.3, Mccormick # (Auto) 0.6, Eos # (Auto) 0.1, Baso # (Auto ) 0.0 08/26/17 12:00: D-Dimer 1200 H* 08/26/17 12:00: Sodium 138, Potassium 4.5, Chloride 101, Carbon Dioxide 27, Anion Gap 14.5, BUN 15, Creatinine 1.05, Estimated Creat Clear 106, Estimated GFR 70, Est GFR ( Amer) 85, Glucose 321 H, Calcium 9.0, Total Bilirubin 0.3, AST 24, ALT 23, Alkaline Phosphatase 163 H, Total Creatine Kinase 59, CK- MB (CK-2) 1.3, CK-MB (CK-2) Rel Index 2.2, Troponin I 0.03, Total Protein 7.4, Albumin 3.6, Globulin 3.8 H, Albumin/Globulin Ratio 0.9 L 08/26/17 12:00: B-Natriuretic Peptide 257 H 08/26/17 12:00: Magnesium 1.2 L 08/26/17 13:05: Lactic Acid 2.3 H Result diagrams: 08/26/17 12:00 08/26/17 12:00 Orders (Tests/Meds): ED MEDICATIONS Generic Name Dose Route Start Last Admin Trade Name Freq PRN Reason Stop Dose Admin Cefepime HCl 1 gm/ Sodium 50 mls @ 100 mls/hr 08/26/17 13:00 08/26/17 13:16 Chloride IV 09/09/17 12:59 100 mls/hr Q12H ABIGAIL Administration Protocol Levofloxacin/Dextrose 750 mg in 150 mls @ 100 mls/hr 08/26/17 13:00 08/26/17 13:07 Levofloxacin 750mg/150ml Premix IV 09/09/17 12:59 100 mls/hr Q24H ABIGAIL Administration Protocol Discontinued Medications Generic Name Dose Route Start Last Admin Trade Name Freq PRN Reason Stop Dose Admin Furosemide 20 mg 08/26/17 12:18 08/26/17 12:19 Lasix 20mg/2ml Vial IV 08/26/17 12:19 20 mg ONCE ONE Administration Iopamidol 75 ml 08/26/17 14:26 08/26/17 14:27 Mrh-Shvvci-320; 75ml Vial IV 08/26/17 14:27 75 ml ONCE ONE Administration Sodium Chloride 50 ml 08/26/17 14:26 08/26/17 14:27 Rad-Ns 50ml Vial IV 08/26/17 14:27 50 ml ONCE ONE Administration ORDERS Category Date Time Status CT Chest w/PE protocol [CT angio chest] Stat Cat Scan 08/26/17 12:38 Taken Lactic Acid Follow Up (4 hr) Stat Lab 08/26/17 13:35 Ordered Blood Culture Stat Micro 08/26/17 13:10 Received - Radiology Data #1 Image(s): Chest Image Reviewed: Yes I reviewed the patient's radiology image Preliminary Findings: Abnormal preliminary reading: PVC can not exclide acute infiltrates. final radiology IMPRESSION: Chronic changes with COPD and pulmonary fibrotic changes with some increased density in both lower lobes which may be related to superimposed bronchopneumonia - ECG Data Tracing #1 NSR, 97/min, old, inf wall SD, no acute. ECG initial impression date: 08/26/17 ECG initial impression time: 12:42 Medical Decision Narrative: I reviewed the chest x-ray reports by the radiologist and contacted Dr. Salinas was diamond sawer for Dr. David agreed to admit for IV antibiotics steroids and oxygen therapy. 1455 I discussed the new findings and a CT scan for pulmonary embolism with Dr. Salinas and we agreed to keep him on his alert to at the time being. 1500 the patient was admitted in Hemodynamically and neurologically stable condition. Resp/SOB HPI - General Stated Complaint: SOA Time Seen by Provider: 08/26/17 11:45 - History of Present Illness 71 years old white male with a history of congestive heart failure end-stage COPD oxygen dependent, he had a history of pneumonia 4 weeks ago, cardiac ablation and status post pacemaker placement. He was getting ready to go to his car when he had a sudden onset of shortness of breath and diaphoresis. He contacted the EMS upon arrival his sat was 88% , he was given oxygen and DuoNeb and with improvement of his breathing. He denies fever chills cough productive sputum chest pain or palpitation. Denies nausea or vomiting coffee- ground emesis hematemesis bleeding per rectum or melanotic stool. MD Complaint: shortness of breath Onset (ago): minute(s) (30 minutes prior to arrival.) Severity: moderate Consistency/Duration: constant Relieving factors: oxygen, bronchodilators Exacerbating factors: exertion Known history of: COPD, congestive heart failure, diabetes, recurrent pneumonia , other (Cardiac ablation. ) Associated symptoms: denies other symptoms - Related Data Home oxygen amount: 3 liters Home Medications Medication Instructions Recorded Confirmed Acetaminophen 500 mg PO Q6HP PRN 07/15/17 08/26/17 Aspirin [Adult Aspirin Regimen] 81 mg PO DAILY 07/15/17 08/26/17 Atorvastatin Calcium [Atorvastatin 80 mg PO HS 07/15/17 08/26/17 80mg Tab] Budesonide/Formoterol Fumarate 2 puffs IH BID 07/15/17 08/26/17 [Symbicort 160-4.5 Mcg Inhaler] Clopidogrel Bisulfate [Plavix 75mg 75 mg PO DAILY 07/15/17 08/26/17 Tab] Furosemide [Lasix 40mg tablet] 40 mg PO BID 07/15/17 08/26/17 Ipratropium/Albuterol Sulfate 1 puff IH QID 07/15/17 08/26/17 [Combivent Respimat Inh] Metformin HCl 1,000 mg PO BID 07/15/17 08/26/17 Spironolactone [Spironolactone 25 mg PO BID 07/15/17 08/26/17 25mg Tab] Albuterol Sulfate [Albuterol HFA 2 puffs IH Q4HP PRN 07/16/17 08/26/17 Inhaler] Sertraline HCl [Zoloft 100mg 100 mg PO DAILY 07/16/17 08/26/17 tablet] Tiotropium [place] [Spiriva 1 puff IH DAILY 07/16/17 08/26/17 18mcg/puff inhaler] Umeclidinium [place] [Incruse 1 puff IH DAILY 07/16/17 08/26/17 Ellipta] Rivaroxaban [Xarelto 15mg tablet] 20 mg PO BID 07/17/17 08/26/17 Amlodipine Besylate [Norvasc 5mg 5 mg PO DAILY 08/26/17 08/26/17 tablet] Lisinopril [Lisinopril 5mg Tablet] 5 mg PO DAILY 08/26/17 08/26/17 Quetiapine Fumarate 25 mg PO HS 08/26/17 08/26/17 Saxagliptin HCl [Onglyza] 5 mg PO DAILY 08/26/17 08/26/17 miSOPROStol [Cytotec 100mcg tablet] 100 mcg PO QID 08/26/17 08/26/17 Allergies Allergy/AdvReac Type Severity Reaction Status Date / Time Sulfa (Sulfonamide Allergy Intermediate I-RASH Verified 06/29/17 11:51 Antibiotics) [SULFA (SULFONAMIDE ANTIBIOTICS)] fluticasone Allergy Mild NA-NAUSEA/V Verified 06/29/17 11:52 [From ADVAIR DISKUS] OMITING salmeterol Allergy Mild NA-NAUSEA/V Verified 06/29/17 11:51 [From ADVAIR DISKUS] OMITING [facility] History I have reviewed the patient's past medical history: Yes Medical History: Reports:: Congestive Heart Failure, Coronary Artery Disease, Diabetes Mellitus Type 2, Hyperlipidemia, Hypertension, Internal Pacemaker, Myocardial Infarction Denies:: Cancer, Diabetes Mellitus Type 1, MRSA Other Medical History: Reports: Anemia Other Surgeries: Yes: Cardiac Catheterization, Pacemaker Amputation: No Fractures: Yes (L TIB/FIB, L PELVIS, L COLLAR BONE, L RIBS) - Social History Smoking Status: Light tobacco smoker Tobacco Type: cigarettes Alcohol Intake: never Occupational Status: unemployed, retired Housing: house Household Members: significant other Family Hx:: Diabetes, Heart Attack, Hyperlipidemia, Hypertension ROS Obtained: Yes All systems reviewed & no additional complaints Physical Exam - General General appearance: alert, anxious, other (He is in mild respiratory distress provided history can speak full sentences. ) - Head Head exam: atraumatic, normocephalic, normal inspection - Eye Eye exam: Present: normal appearance, PERRL, EOMI - ENT ENT exam: Present: normal exam, normal oropharynx, mucous membranes moist, TM's normal bilaterally, normal external ear exam - Neck Neck exam: Present: normal inspection, full ROM, trachea midline. Absent: meningismus, lymphadenopathy - Chest Chest inspection: Present: normal inspection, symmetric chest wall rise. Absent : tenderness, rash - Respiratory Respiratory exam: Present: wheezes, other (Bilateral basilar scant coarse crackles. ) - Cardiovascular Cardiovascular exam: Present: regular rate, normal rhythm. Absent: JVD - Abdominal Exam Abdominal exam: Present: soft, normal bowel sounds. Absent: distention, tenderness, guarding, rebound, rigidity - Extremities Exam Extremities exam: Present: full ROM, pedal edema, other (generous 1+ edema of both lower extreme). Absent: tenderness - Back Exam Back exam: Present: normal inspection. Absent: tenderness - Neurological Exam Neurological exam: Present: alert, oriented X3, CN II-XII intact, motor sensory deficit, reflexes normal - Psychiatric Psychiatric exam: Present: normal affect, normal mood - Skin Skin exam: Present: warm, dry, intact, normal color - Lymphatic Lymphatic Findings: no adenopathy
[2017-08-26 12:24] LABS: Basophils % 0.2 % (0.1-2.0); Eosinophils # 0.1 K/mm3 (0.0-0.4); Hematocrit 33.9 % (42.0-52.0); Hemoglobin 10.2 g/dL (14.1-18.0); Lymphocytes # 2.3 K/mm3 (0.7-4.5); Lymphocytes % 24.1 K/mm3 (10-50); Mean Corpuscular Hemoglobin 28.6 pg (27.0-31.2); Mean Corpuscular Volume 95.4 fl (80-94); Mean Platelet Volume 7.4 fl (7.4-10.4); Monocytes # 0.6 K/mm3 (0.1-1.0); Monocytes % 6.1 % (1.7-9.3); Neutrophils # 6.5 K/mm3 (1.8-7.8); Neutrophils % 68.6 % (37.0-80.0); Platelet Count 354 K/mm3 (142-424); Red Blood Count 3.55 M/mm3 (4.60-6.20); Red Cell Distribution Width 15.3 % (11.5-17.5); White Blood Count 9.5 K/mm3 (4.8-10.8)
[2017-08-26 12:43] LABS: Albumin Level 3.6 gm/dL (3.4-5.0); Albumin/Globulin Ratio 0.9 (1.1-1.8); Anion Gap 14.5 mEq/L (5-15); Bilirubin,Total 0.3 mg/dL (0.2-1.0); Globulin 3.8 gm/dl (1.3-3.2); Potassium 4.5 mmoL/L (3.5-5.1); Total Protein,Serum 7.4 gm/dL (6.4-8.2)
[2017-08-26 19:09] LABS: Anion Gap 12.8 mEq/L (5-15); Potassium 4.8 mmoL/L (3.5-5.1)
[2017-08-27 06:37] LABS: Basophils % 0.3 % (0.1-2.0); Eosinophils # 0.1 K/mm3 (0.0-0.4); Eosinophils % 0.7 % (0.1-12.0); Lymphocytes # 1.3 K/mm3 (0.7-4.5); Lymphocytes % 14.7 K/mm3 (10-50); Mean Corpuscular HGB Conc 30.4 g/dL (31.8-35.4); Mean Corpuscular Hemoglobin 28.4 pg (27.0-31.2); Mean Corpuscular Volume 93.1 fl (80-94); Mean Platelet Volume 8.8 fl (7.4-10.4); Monocytes # 0.5 K/mm3 (0.1-1.0); Monocytes % 5.6 % (1.7-9.3); Neutrophils % 78.6 % (37.0-80.0); Red Blood Count 3.01 M/mm3 (4.60-6.20); Red Cell Distribution Width 15.2 % (11.5-17.5); White Blood Count 8.9 K/mm3 (4.8-10.8)
[2017-08-27 06:43] LABS: Anion Gap 11.2 mEq/L (5-15); Potassium 4.2 mmoL/L (3.5-5.1)
[2017-08-27 06:45] LABS: Hematocrit 27.9 % (42.0-52.0); Hemoglobin 8.7 g/dL (14.1-18.0); Platelet Count 262 K/mm3 (142-424)
--- NOTE | 2017-08-27 07:24 | History & Physical Report ---
*Admission Date: 08/26/17 *Chief complaint: Shortness of breath *History of present illness: 89-year-old male with coronary artery disease, very severe COPD requiring oxygen supplementation, history of pacemaker placement presented to the emergency department after sudden onset of shortness of breath while ambulating to his car yesterday. Patient states he was going to drive to town to get his medications when he became acutely short of breath. He had difficulty getting back to his home. He called 911 and EMS arrived at the patient's house. Patient admits he has been using more oxygen than baseline via nasal cannula choosing to increase his rate to 3 L/min from baseline of 2 L/min. He denies cough or chest pain. He denies fevers or chills. He denies orthopnea and swelling. He admits he has not been weighing himself at home. Patient just got out of [facility] a little over a month ago after a 2 week stay for pneumonia and pulmonary embolisms with subsequent rehab stay at [facility]. This morning the patient states he feels better but is still dyspneic [facility] History Medical History: Reports:: Congestive Heart Failure, Coronary Artery Disease, Diabetes Mellitus Type 2, Hyperlipidemia, Hypertension, Internal Pacemaker, Myocardial Infarction Denies:: Cancer, Diabetes Mellitus Type 1, MRSA Other Medical History: Reports: Anemia Other Surgeries: Yes: Cardiac Catheterization, Pacemaker, Other (BOWEL PERF SURGERY) Amputation: No Fractures: Yes (L TIB/FIB, L PELVIS, L COLLAR BONE, L RIBS) - *Social History Educational Level: Attended High School Smoking Status: Light tobacco smoker Tobacco Type: cigarettes Alcohol Intake: never Occupational Status: unemployed, retired Housing: house Household Members: significant other - Psychiatric History Expresses thoughts of harming self/others: None Suicide Plan Description: No Plan *Family Hx:: Diabetes, Heart Attack, Hyperlipidemia, Hypertension Review of Systems - Review of Systems Review of systems:: pertinent systems reviewed and negative unless documented below Meds Home Medications Medication Instructions Recorded Confirmed Type Acetaminophen 500 mg PO Q6HP PRN 07/15/17 08/26/17 History Aspirin [Adult Aspirin Regimen] 81 mg PO DAILY 07/15/17 08/26/17 History Atorvastatin Calcium [Atorvastatin 80 mg PO HS 07/15/17 08/26/17 History 80mg Tab] Budesonide/Formoterol Fumarate 2 puffs IH BID 07/15/17 08/26/17 History [Symbicort 160-4.5 Mcg Inhaler] Clopidogrel Bisulfate [Plavix 75mg 75 mg PO DAILY 07/15/17 08/26/17 History Tab] Furosemide [Lasix 40mg tablet] 40 mg PO BID 07/15/17 08/26/17 History Ipratropium/Albuterol Sulfate 1 puff IH QID 07/15/17 08/26/17 History [Combivent Respimat Inh] Metformin HCl 1,000 mg PO BID 07/15/17 08/26/17 History Spironolactone [Spironolactone 25 mg PO BID 07/15/17 08/26/17 History 25mg Tab] Albuterol Sulfate [Albuterol HFA 2 puffs IH Q4HP PRN 07/16/17 08/26/17 History Inhaler] Sertraline HCl [Zoloft 100mg 100 mg PO DAILY 07/16/17 08/26/17 History tablet] Tiotropium [place] [Spiriva 1 puff IH DAILY 07/16/17 08/26/17 History 18mcg/puff inhaler] Umeclidinium [place] [Incruse 1 puff IH DAILY 07/16/17 08/26/17 History Ellipta] Rivaroxaban [Xarelto 15mg tablet] 20 mg PO BID 07/17/17 08/26/17 History Amlodipine Besylate [Norvasc 5mg 5 mg PO DAILY 08/26/17 08/26/17 History tablet] Lisinopril [Lisinopril 5mg Tablet] 5 mg PO DAILY 08/26/17 08/26/17 History Quetiapine Fumarate 25 mg PO HS 08/26/17 08/26/17 History Saxagliptin HCl [Onglyza] 5 mg PO DAILY 08/26/17 08/26/17 History miSOPROStol [Cytotec 100mcg tablet] 100 mcg PO QID 08/26/17 08/26/17 History Allergies Allergy/AdvReac Type Severity Reaction Status Date / Time Sulfa (Sulfonamide Allergy Intermediate I-RASH Verified 06/29/17 11:51 Antibiotics) [SULFA (SULFONAMIDE ANTIBIOTICS)] fluticasone Allergy Mild NA-NAUSEA/V Verified 06/29/17 11:52 [From ADVAIR DISKUS] OMITING salmeterol Allergy Mild NA-NAUSEA/V Verified 06/29/17 11:51 [From ADVAIR DISKUS] OMITING Exam Vital signs and Labs for Last 24 Hours: Temp Pulse Resp BP Pulse Ox 99.1 F 89 20 114/61 98 08/27/17 04:00 08/27/17 06:14 08/27/17 04:00 08/27/17 04:00 08/27/17 04:00 Laboratory Results - last 24 hr 08/26/17 17:24: Lactic Acid Fup @ 4Hr 4.1 H 08/26/17 18:02: Sodium 138, Potassium 4.8, Chloride 100, Carbon Dioxide 30, Anion Gap 12.8, BUN 18, Creatinine 1.22, Estimated Creat Clear 73, Estimated GFR 59, Est GFR ( Amer) 71, Glucose 331 H 08/26/17 18:12: Lactic Acid Fup @ 2Hr 4.1 H 08/26/17 20:21: POC Glucose 305 08/27/17 06:15: WBC 8.9, RBC 3.01 L, Hgb 8.7 L D, Hct 27.9 L, MCV 93.1, MCH 28.4 , MCHC 30.4 L, RDW 15.2, Plt Count 262 D, MPV 8.8, Neut % (Auto) 78.6, Lymph % (Auto) 14.7, [place] % (Auto) 5.6, Eos % (Auto) 0.7, Baso % (Auto) 0.3, Neut # ( Auto) 7.0, Lymph # (Auto) 1.3, [place] # (Auto) 0.5, Eos # (Auto) 0.1, Baso # (Auto ) 0.0 08/27/17 06:15: Sodium 139, Potassium 4.2, Chloride 101, Carbon Dioxide 31, Anion Gap 11.2, BUN 17, Creatinine 1.17, Estimated Creat Clear 76, Estimated GFR 62, Est GFR ( Amer) 75, Glucose 178 H D I & O for Last 24 hours: Intake & Output 08/24/17 08/25/17 08/26/17 08/27/17 11:59 11:59 11:59 11:59 Intake Total 1070 / 1070 Output Total 1650 / 1650 Balance -580 / -580 Weight 199 lb 8 oz Narrative: Patient appears comfortable sitting up in bed in no distress using his smart phone. ENT exam is unremarkable. Neck is without jugular venous distention. Lungs are clear to auscultation. Heart has a regular rate and rhythm. Abdomen is soft, nontender, non-distended. Extremities are warm to the touch and without significant edema. H&P: Result - Labs Labs: Short CBC 08/27/17 Range/Units 06:15 WBC 8.9 (4.8-10.8) K/mm3 Hgb 8.7 L D (14.1-18.0) g/dL Hct 27.9 L (42.0-52.0) % Plt Count 262 D (142-424) K/mm3 BMP 08/26/17 08/27/17 18:02 06:15 Sodium 138 139 Potassium 4.8 4.2 Chloride 100 101 Carbon Dioxide 30 31 BUN 18 17 Creatinine 1.22 1.17 Glucose 331 H 178 H D Laboratory Results - last 24 hr 08/26/17 12:00: WBC 9.5, RBC 3.55 L, Hgb 10.2 L, Hct 33.9 L, MCV 95.4 H, MCH 28.6, MCHC 30.0 L, RDW 15.3, Plt Count 354, MPV 7.4, Neut % (Auto) 68.6, Lymph % (Auto) 24.1, [place] % (Auto) 6.1, Eos % (Auto) 1.0, Baso % (Auto) 0.2, Neut # ( Auto) 6.5, Lymph # (Auto) 2.3, [place] # (Auto) 0.6, Eos # (Auto) 0.1, Baso # (Auto ) 0.0 08/26/17 12:00: D-Dimer 1200 H* 08/26/17 12:00: Sodium 138, Potassium 4.5, Chloride 101, Carbon Dioxide 27, Anion Gap 14.5, BUN 15, Creatinine 1.05, Estimated Creat Clear 106, Estimated GFR 70, Est GFR ( Amer) 85, Glucose 321 H, Calcium 9.0, Total Bilirubin 0.3, AST 24, ALT 23, Alkaline Phosphatase 163 H, Total Creatine Kinase 59, CK- MB (CK-2) 1.3, CK-MB (CK-2) Rel Index 2.2, Troponin I 0.03, Total Protein 7.4, Albumin 3.6, Globulin 3.8 H, Albumin/Globulin Ratio 0.9 L 08/26/17 12:00: B-Natriuretic Peptide 257 H 08/26/17 12:00: Magnesium 1.2 L 08/26/17 13:05: Lactic Acid 2.3 H 08/26/17 17:24: Lactic Acid Fup @ 4Hr 4.1 H 08/26/17 18:02: Sodium 138, Potassium 4.8, Chloride 100, Carbon Dioxide 30, Anion Gap 12.8, BUN 18, Creatinine 1.22, Estimated Creat Clear 73, Estimated GFR 59, Est GFR ( Amer) 71, Glucose 331 H 08/26/17 18:12: Lactic Acid Fup @ 2Hr 4.1 H 08/26/17 20:21: POC Glucose 305 08/27/17 06:15: WBC 8.9, RBC 3.01 L, Hgb 8.7 L D, Hct 27.9 L, MCV 93.1, MCH 28.4 , MCHC 30.4 L, RDW 15.2, Plt Count 262 D, MPV 8.8, Neut % (Auto) 78.6, Lymph % (Auto) 14.7, [place] % (Auto) 5.6, Eos % (Auto) 0.7, Baso % (Auto) 0.3, Neut # ( Auto) 7.0, Lymph # (Auto) 1.3, [place] # (Auto) 0.5, Eos # (Auto) 0.1, Baso # (Auto ) 0.0 08/27/17 06:15: Sodium 139, Potassium 4.2, Chloride 101, Carbon Dioxide 31, Anion Gap 11.2, BUN 17, Creatinine 1.17, Estimated Creat Clear 76, Estimated GFR 62, Est GFR ( Amer) 75, Glucose 178 H D Assessment and Plan (1) CHF (congestive heart failure), NYHA class IV Current visit: Yes Status: Acute Category: Medical Code(s): I50.9 - Heart failure, unspecified (2) Coronary artery disease Current visit: Yes Status: Acute Category: Medical Code(s): I25.10 - Atherosclerotic heart disease of [place] coronary artery without angina pectoris (3) Pulmonary embolism Current visit: Yes Status: Acute Category: Medical Code(s): I26.99 - Other pulmonary embolism without acute cor pulmonale - Assessment and plan all Dx Assessment and Plan for all problems:: 1. I believe the patient is primarily suffering from a mild CHF exacerbation. Implement fluid restrictions and increase Lasix to 40 mg intravenously twice daily. 2. Provide patient with home medications 3. Patient had significant hypomagnesemia on admission and this will be replaced this morning
--- NOTE | 2017-08-27 07:31 | Pharmacy Consult Notes ---
[facility] VTE Monitoring - Patient Demographics Admission date: 08/26/17 Report Date: 08/27/17 Time: 07:31 Allergies/Adverse Reactions: Patient Allergies Sulfa (Sulfonamide Antibiotics) [SULFA (SULFONAMIDE ANTIBIOTICS)] Allergy ( Intermediate, Verified 06/29/17 11:51) I-RASH fluticasone [From ADVAIR DISKUS] Allergy (Mild, Verified 06/29/17 11:52) NA-NAUSEA/VOMITING salmeterol [From ADVAIR DISKUS] Allergy (Mild, Verified 06/29/17 11:51) NA-NAUSEA/VOMITING Height: 1.7 m Weight: 90.492 kg Patient Problems: Current Active Problems Coronary artery disease (Acute) COPD (chronic obstructive pulmonary disease) (Acute) Pulmonary embolism (Acute) CHF (congestive heart failure), NYHA class IV (Acute) Pneumonia (Acute) - VTE Risk Labs: VTE Related Lab Results Hgb 8.7 g/dL (14.1-18.0) L D 08/27/17 06:15 Hct 27.9 % (42.0-52.0) L 08/27/17 06:15 Plt Count 262 K/mm3 (142-424) D 08/27/17 06:15 BUN 17 mg/dL (7-18) 08/27/17 06:15 Creatinine 1.17 mg/dL (0.70-1.30) 08/27/17 06:15 Estimated Creat Clear 76 mL/min (0-300) 08/27/17 06:15 Was VTE Risk Assessment Performed: Yes VTE Score: 8 VTE Risk Level: Moderate Risk - Prophylaxis VTE Prophylaxis Ordered?: Yes Types of VTE Prophylaxis: TEDS Knee High, Pharmacological Location of Applied Device: Bilateral Lower Extremeties Pharmacologic Type: Other (XARELTO) - VTE Diagnosis Confirmed Treatment or plan recommended: Continue Current Treatment
--- NOTE | 2017-08-28 07:10 | Discharge Summary ---
General - General Admission date: 08/26/17 Discharge date: 08/28/17 HPI HPI: 89-year-old male with coronary artery disease, very severe COPD requiring oxygen supplementation, history of pacemaker placement presented to the emergency department after sudden onset of shortness of breath while ambulating to his car yesterday. Patient states he was going to drive to [facility] to get his medications when he became acutely short of breath. He had difficulty getting back to his home. He called 911 and EMS arrived at the patient's house. Patient admits he has been using more oxygen than baseline via nasal cannula choosing to increase his rate to 3 L/min from baseline of 2 L/min. He denies cough or chest pain. He denies fevers or chills. He denies orthopnea and swelling. He admits he has not been weighing himself at home. Patient just got out of [facility] a little over a month ago after a 2 week stay for pneumonia and pulmonary embolisms with subsequent rehab stay at [facility]. This morning the patient states he feels better but is still dyspneic Hospital Course Hospital Course: Patient was admitted with concern over pneumonia versus exacerbation of CHF. White count was normal and patient was afebrile. Cough was nonproductive and due to the acute onset of his symptoms his picture fit more with congestive heart failure exacerbation. Patient was treated as such with twice daily intravenous Lasix. Over 48 hours his respiratory status improved and on the day of discharge he felt like he had returned to baseline. Patient was given home medications while hospitalized although he uses his inhalers much more frequently than we typically allow in hospitalized patients. He did express some dissatisfaction with this. On the patient was discharged home without change in his home medications. Objective Vital signs: Temp Pulse Resp BP Pulse Ox 98.5 F 84 21 101/45 95 08/28/17 04:00 08/28/17 04:00 08/28/17 04:00 08/28/17 04:00 08/28/17 05:48 Results Labs on day of discharge: Labs from last 24 hours 08/28/17 08/27/17 08/27/17 05:59 19:30 16:30 POC Glucose 125 252 220 08/27/17 10:26 POC Glucose 338 DS: Diagnosis - Discharge Diagnosis (1) CHF (congestive heart failure), NYHA class IV Status: Acute (2) Coronary artery disease Status: Acute (3) Pulmonary embolism Status: Acute Discharge Plan - Patient Discharge Instructions ACTIVITY: Continue current activity DIET: low salt diet Patient Instructions: Low-Sodium Diet - Follow up Plan Follow up with: Noah Vale [Referring] - Disposition: Home, [facility] Medications: Home Medications Medication Instructions Recorded Confirmed Type Acetaminophen 1,000 mg PO Q6HP PRN 07/15/17 08/27/17 History Aspirin [Adult Aspirin Regimen] 81 mg PO DAILY 07/15/17 08/26/17 History Atorvastatin Calcium [Atorvastatin 80 mg PO HS 07/15/17 08/26/17 History 80mg Tab] Clopidogrel Bisulfate [Plavix 75mg 75 mg PO DAILY 07/15/17 08/26/17 History Tab] Furosemide [Lasix 40mg tablet] 40 mg PO DAILY 07/15/17 08/27/17 History Ipratropium/Albuterol Sulfate 1 puff IH QID 07/15/17 08/26/17 History [Combivent Respimat Inh] Metformin HCl 1,000 mg PO BID 07/15/17 08/26/17 History Albuterol Sulfate [Albuterol HFA 2 puffs IH Q4HP PRN 07/16/17 08/26/17 History Inhaler] Sertraline HCl [Zoloft 100mg 100 mg PO DAILY 07/16/17 08/26/17 History tablet] Tiotropium [place] [Spiriva 1 puff IH DAILY 07/16/17 08/26/17 History 18mcg/puff inhaler] Umeclidinium [place] [Incruse 1 puff IH DAILY 07/16/17 08/26/17 History Ellipta] Rivaroxaban [Xarelto 15mg tablet] 20 mg PO HS 07/17/17 08/27/17 History Amlodipine Besylate [Norvasc 5mg 5 mg PO DAILY 08/26/17 08/26/17 History tablet] Lisinopril [Lisinopril 5mg Tablet] 5 mg PO DAILY 08/26/17 08/26/17 History Quetiapine Fumarate 25 mg PO HS 08/26/17 08/26/17 History Saxagliptin HCl [Onglyza] 5 mg PO DAILY 08/26/17 08/26/17 History miSOPROStol [Cytotec 100mcg tablet] 100 mcg PO QID 08/26/17 08/26/17 History Bisoprolol Fumarate [Zebeta 5mg 2.5 mg PO DAILY 08/27/17 08/27/17 History tablet] Insulin Aspart [Novolog] 7 unit SQ AC 08/27/17 08/27/17 History Insulin Detemir [Levemir 100 35 unit SQ HS 08/27/17 08/27/17 History units/mL 10mL vial] guaiFENesin [Mucinex 600mg tablet] 600 mg PO DAILY PRN 08/27/17 08/27/17 History Prescriptions/Medication Reconciliation: New Bisoprolol Fumarate [Zebeta 5mg tablet] 2.5 mg PO DAILY tablet Insulin Detemir [Levemir 100 units/mL 10mL vial] 35 unit SQ HS ml Continue Metformin HCl 1,000 mg PO BID Furosemide [Lasix 40mg tablet] 40 mg PO DAILY Clopidogrel Bisulfate [Plavix 75mg Tab] 75 mg PO DAILY Atorvastatin Calcium [Atorvastatin 80mg Tab] 80 mg PO HS Aspirin [Adult Aspirin Regimen] 81 mg PO DAILY Acetaminophen 1,000 mg PO Q6HP PRN PRN Reason: PAIN Albuterol Sulfate [Albuterol HFA Inhaler] 2 puffs IH Q4HP PRN PRN Reason: Shortness Of Breath Or Wheezing Umeclidinium [place] [Incruse Ellipta] 1 puff IH DAILY Tiotropium [place] [Spiriva 18mcg/puff inhaler] 1 puff IH DAILY Rivaroxaban [Xarelto 15mg tablet] 20 mg PO HS Amlodipine Besylate [Norvasc 5mg tablet] 5 mg PO DAILY Lisinopril [Lisinopril 5mg Tablet] 5 mg PO DAILY miSOPROStol [Cytotec 100mcg tablet] 100 mcg PO QID Quetiapine Fumarate 25 mg PO HS Saxagliptin HCl [Onglyza] 5 mg PO DAILY guaiFENesin [Mucinex 600mg tablet] 600 mg PO DAILY PRN PRN Reason: Cough Bisoprolol Fumarate [Zebeta 5mg tablet] 2.5 mg PO DAILY Ipratropium/Albuterol Sulfate [Combivent Respimat Inh] 1 puff IH QID Sertraline HCl [Zoloft 100mg tablet] 100 mg PO DAILY Insulin Detemir [Levemir 100 units/mL 10mL vial] 35 unit SQ HS Insulin Aspart [Novolog] 7 unit SQ AC
[2017-08-28 07:30] VITALS: BP 107/55
== END 2017-08-28 10:18 | disposition home or self-care (01) ==
LOC: 2ND 12:12 → ER 12:12 → 2ND 13:39
PROVIDERS: ADMIT Emergency Medicine; ATTEND Family Medicine

== ENCOUNTER 2017-09-22 02:50 | Inpatient (IN) ==
[2017-09-22 03:26] LABS: ABG Base Excess -8.2 mmol/L (-2.4-2.3); ABG HCO3 20.6 mmhg (22.0-26.0); ABG Oxygen Saturation 62 % (90-100); ABG TCO2 22.5 mmhg (23-27)
[2017-09-22 03:30] LABS: Basophils # 0.1 K/mm3 (0-0.2); Basophils % 0.4 % (0.1-2.0); Eosinophils # 0.1 K/mm3 (0.0-0.4); Eosinophils % 0.6 % (0.1-12.0); Hematocrit 33.4 % (42.0-52.0); Hemoglobin 9.5 g/dL (14.1-18.0); Lymphocytes # 3.9 K/mm3 (0.7-4.5); Lymphocytes % 21.5 K/mm3 (10-50); Mean Corpuscular HGB Conc 28.4 g/dL (31.8-35.4); Mean Corpuscular Hemoglobin 27.9 pg (27.0-31.2); Mean Corpuscular Volume 98.3 fl (80-94); Mean Platelet Volume 7.4 fl (7.4-10.4); Monocytes # 0.8 K/mm3 (0.1-1.0); Monocytes % 4.3 % (1.7-9.3); Neutrophils # 13.5 K/mm3 (1.8-7.8); Neutrophils % 73.2 % (37.0-80.0); Platelet Count 479 K/mm3 (142-424); Red Cell Distribution Width 15.2 % (11.5-17.5); White Blood Count 18.4 K/mm3 (4.8-10.8)
[2017-09-22 03:30] LABS: Allen's Test acceptable; Oxygen 2 %
[2017-09-22 03:32] LABS: ABG PCO2 60.7 mmhg (35.0-45.0); ABG PH 7.15 mmol/L (7.35-7.45)
[2017-09-22 03:33] LABS: ABG PO2 43.8 mmhg (80-100)
[2017-09-22 03:57] LABS: Albumin Level 3.5 gm/dL (3.4-5.0); Albumin/Globulin Ratio 0.9 (1.1-1.8); Anion Gap 17.6 mEq/L (5-15); Bilirubin,Total 0.2 mg/dL (0.2-1.0); Calcium 8.7 mg/dL (8.5-10.1); Potassium 4.6 mmoL/L (3.5-5.1); Total Protein,Serum 7.5 gm/dL (6.4-8.2)
[2017-09-22 03:59] LABS: Lymphocytes % 15 % (10-50); Monocytes % 2 % (2-9); Neutrophils % 77 % (42-76); Total Cells Counted 100
[2017-09-22 04:00] LABS: Hypochromasia 3+; Macrocytosis 1+; Rouleaux 2+
--- NOTE | 2017-09-22 04:10 | Emergency Department Note ---
ED Disposition Clinical Impression: Acute exacerbation of chronic obstructive airways disease, Respiratory acidosis , Cardiac pacemaker in situ Community acquired pneumonia Qualifiers: Laterality: unspecified laterality Qualified Code(s): J18.9 - Pneumonia, unspecified organism Respiratory failure Qualifiers: Chronicity: acute on chronic Respiratory failure complication: hypoxia and hypercapnia Qualified Code(s): J96.21 - Acute and chronic respiratory failure with hypoxia; J96.22 - Acute and chronic respiratory failure with hypercapnia DM type 2 (diabetes mellitus, type 2) Qualifiers: Diabetes mellitus long line teamster insulin use: with penitentiary use Diabetes mellitus complication status: with unspecified complications Qualified Code(s): E11.8 - Type 2 diabetes mellitus with unspecified complications; Z79.4 - intermediate project manager ( current) use of insulin Disposition: Admitted As Inpatient Condition on Discharge: Good Referrals: Roberto Carlos David MD [Primary Care Provider] - - Critical Care Critical Care Time: Yes Attestation: On 09/22/17, the high probability of a clinically significant, sudden or life threatening deterioration of the following system(s) required my full and direct attention, intervention and personal management. The time I documented below is in addition to time spent performing reported procedures but includes the following listed in this critical care notation. Total Critical Care Time: 90 Vital system(s) involved:: Respiratory Failure My critical care processes included: Assessment & monitoring of V/S, Initial and Re-exams, Data Review/Interpretation, Coordinating Care, Documentation Medical Decision Making - Medical Records Medical records reviewed: Yes: I reviewed the patient's medical records. - [place] Inquiry Pt receiving controlled substance: No Vital Signs: 09/22/17 02:51 09/22/17 03:51 09/22/17 03:59 Temperature 98.3 F Temperature Source Temporal Artery Scan Pulse Rate 129 H Pulse Rate [Right Radial] 130 H 132 H Respiratory Rate 30 H 28 H Blood Pressure [Left Arm] 130/48 102/66 Blood Pressure Mean [Left Arm] 75 78 Blood Pressure Source [Left Arm] Automatic Cuff Automatic Cuff Blood Pressure Position [Left Arm] Sitting Sitting 02 Sat by Pulse Oximetry 96 92 L Oxygen Delivery Method Nasal Cannula Simple Mask Oxygen Flow Rate (LPM) 2 8 - Lab Data Lab results reviewed: Yes: I reviewed the patient's lab results. Lab Results 09/22/17 03:08: WBC 18.4 H, RBC 3.40 L, Hgb 9.5 L, Hct 33.4 L, MCV 98.3 H, MCH 27.9, MCHC 28.4 L, RDW 15.2, Plt Count 479 H, MPV 7.4, Neut % (Auto) 73.2, Lymph % (Auto) 21.5, [place] % (Auto) 4.3, Eos % (Auto) 0.6, Baso % (Auto) 0.4, Neut # (Auto) 13.5 H, Lymph # (Auto) 3.9, [place] # (Auto) 0.8, Eos # (Auto) 0.1, Baso # (Auto) 0.1, Total Counted 100, Neutrophils % (Manual) 77 H, Band Neutrophils % 6.0, Lymphocytes % (Manual) 15, Monocytes % (Manual) 2, Platelet Estimate Slight increase, RBC Morphology Not Reportable, Hypochromasia 3+, Macrocytosis 1+, Rouleaux 2+ 09/22/17 03:08: Sodium 138, Potassium 4.6, Chloride 97 L, Carbon Dioxide 28, Anion Gap 17.6 H, BUN 21 H, Creatinine 1.53 H, Estimated Creat Clear 63, Estimated GFR 45 L, Est GFR ( Amer) 55 L, Glucose 367 H, Calcium 8.7, Total Bilirubin 0.2, AST 15, ALT 23, Alkaline Phosphatase 156 H, Total Creatine Kinase 34 L, CK-MB (CK-2) 0.7 D, CK-MB (CK-2) Rel Index 2.1, Troponin I 0.02, Total Protein 7.5, Albumin 3.5, Globulin 4.0 H, Albumin/Globulin Ratio 0.9 L 09/22/17 03:08: Lactic Acid 8.4 H 09/22/17 03:08: B-Natriuretic Peptide 445 H 09/22/17 03:12: Specimen Source right radial, O2 % 2, ABG pH 7.15 L*, ABG pCO2 60.7 H, ABG pO2 43.8 L, ABG HCO3 20.6 L, ABG Total CO2 22.5 L, ABG O2 Saturation 62 L*, ABG Base Excess -8.2 L, [place] Test acceptable Result diagrams: 09/22/17 03:08 09/22/17 03:08 Orders (Tests/Meds): ED MEDICATIONS Generic Name Dose Route Start Last Admin Trade Name Freq PRN Reason Stop Dose Admin Cefepime HCl 2 gm/ Sodium 100 mls @ 200 mls/hr 09/22/17 04:30 09/22/17 04:35 Chloride IV 10/06/17 04:29 200 mls/hr Q8H ABIGAIL Administration Protocol Levofloxacin/Dextrose 750 mg in 150 mls @ 100 mls/hr 09/22/17 04:30 Levofloxacin 750mg/150ml Premix IV 10/06/17 04:29 Q24H ABIGAIL Protocol Discontinued Medications Generic Name Dose Route Start Last Admin Trade Name Freq PRN Reason Stop Dose Admin Albuterol/Ipratropium 3 ml 09/22/17 03:47 09/22/17 03:51 Duoneb 3ml Neb IH 09/22/17 03:48 3 ml ONCE ONE Administration Furosemide 40 mg 09/22/17 04:10 09/22/17 04:15 Lasix 40mg/4ml Vial IV 09/22/17 04:11 40 mg ONCE ONE Administration Lorazepam 0.5 mg 09/22/17 04:24 09/22/17 04:23 Ativan 2mg/Ml Vial IV 09/22/17 04:25 0.5 mg ONCE ONE Administration Methylprednisolone Sodium Succinate 125 mg 09/22/17 03:47 09/22/17 03:53 Solu-Medrol 125mg/2ml Vial IV 09/22/17 03:48 125 mg ONCE ONE Administration ORDERS Category Date Time Status Chest XR -- portable [XR chest portable] Stat Exams 09/22/17 03:09 Taken Blood Culture Stat Micro 09/22/17 03:08 Received EKG Request [ECG Request by /Mikel] Stat Y 09/22/17 04:31 Ordered - Radiology Data #1 Image(s): Chest Image Reviewed: Yes I reviewed the patient's radiology image Preliminary Findings: Abnormal (bilat changes ) - ECG Data Tracing #1 I reviewed this ECG and interpreted as documented below: Arrhythmias present: sinus tach Conduction abnormalities present: LBBB Resp/SOB HPI - General Chief Complaint: Shortness of Breath/Dyspnea Stated Complaint: short of breath Time Seen by Provider: 09/22/17 04:07 Mode of Arrival: EMS Source of Information: Patient, EMS, Medical Record Limitations: No Limitations Description of Symptoms (Recalled from ER Triage Doc. by RN): short of air, pale, thinks his pacer is acting up, wants something for anxiety(usual request for patient) also is not taking his keflex as directed - History of Present Illness pt with sob with onset this am MD Complaint: shortness of breath Onset (ago): hour(s) Context: recent illness Severity: moderate Consistency/Duration: intermittent Known history of: COPD, congestive heart failure Treatment prior to arrival: oxygen - Related Data Home oxygen amount: 4 liters Home Medications Medication Instructions Recorded Confirmed Acetaminophen 1,000 mg PO Q6HP PRN 07/15/17 09/22/17 Aspirin [Adult Aspirin Regimen] 81 mg PO DAILY 07/15/17 09/22/17 Atorvastatin Calcium [Atorvastatin 80 mg PO HS 07/15/17 09/22/17 80mg Tab] Clopidogrel Bisulfate [Plavix 75mg 75 mg PO DAILY 07/15/17 09/22/17 Tab] Furosemide [Lasix 40mg tablet] 40 mg PO DAILY 07/15/17 09/22/17 Ipratropium/Albuterol Sulfate 1 puff IH QID 07/15/17 09/22/17 [Combivent Respimat Inh] Metformin HCl 1,000 mg PO BID 07/15/17 09/22/17 Albuterol Sulfate [Albuterol HFA 2 puffs IH Q4HP PRN 07/16/17 09/22/17 Inhaler] Sertraline HCl [Zoloft 100mg 100 mg PO DAILY 07/16/17 09/22/17 tablet] Tiotropium [place] [Spiriva 1 puff IH DAILY 07/16/17 09/22/17 18mcg/puff inhaler] Umeclidinium [place] [Incruse 1 puff IH DAILY 07/16/17 09/22/17 Ellipta] Rivaroxaban [Xarelto 15mg tablet] 20 mg PO HS 07/17/17 09/22/17 Amlodipine Besylate [Norvasc 5mg 5 mg PO DAILY 08/26/17 09/22/17 tablet] Lisinopril [Lisinopril 5mg Tablet] 5 mg PO DAILY 08/26/17 09/22/17 Quetiapine Fumarate 25 mg PO HS 08/26/17 09/22/17 Saxagliptin HCl [Onglyza] 5 mg PO DAILY 08/26/17 09/22/17 miSOPROStol [Cytotec 100mcg tablet] 100 mcg PO QID 08/26/17 09/22/17 Insulin Aspart [Novolog] 7 unit SQ AC 08/27/17 09/22/17 Insulin Detemir [Levemir 100 35 unit SQ HS 08/27/17 09/22/17 units/mL 10mL vial] guaiFENesin [Mucinex 600mg tablet] 600 mg PO DAILY PRN 08/27/17 09/22/17 Bisoprolol Fumarate [Zebeta 5mg 2.5 mg PO DAILY 09/22/17 09/22/17 tablet] Insulin Detemir [Levemir 100 35 unit SQ HS 09/22/17 09/22/17 units/mL 10mL vial] cephALEXin [cephALEXin 500mg 1 cap PO BID 09/22/17 09/22/17 capsule] Allergies Allergy/AdvReac Type Severity Reaction Status Date / Time Sulfa (Sulfonamide Allergy Intermediate I-RASH Verified 09/22/17 03:08 Antibiotics) [SULFA (SULFONAMIDE ANTIBIOTICS)] fluticasone Allergy Mild NA-NAUSEA/V Verified 09/22/17 03:08 [From ADVAIR DISKUS] OMITING salmeterol Allergy Mild NA-NAUSEA/V Verified 09/22/17 03:08 [From ADVAIR DISKUS] OMITING [facility] History I have reviewed the patient's past medical history: Yes Medical History: Reports:: Congestive Heart Failure, Coronary Artery Disease, Diabetes Mellitus Type 2, Hyperlipidemia, Hypertension, Internal Pacemaker, Myocardial Infarction Denies:: Cancer, Diabetes Mellitus Type 1, MRSA Other Medical History: Reports: Anemia Other Surgeries: Yes: Cardiac Catheterization, Pacemaker, Other (BOWEL PERF SURGERY) Amputation: No Fractures: Yes (L TIB/FIB, L PELVIS, L COLLAR BONE, L RIBS) - Social History Smoking Status: Former smoker Tobacco Type: cigarettes Alcohol Intake: former Occupational Status: unemployed, retired Housing: house Household Members: significant other - Psychiatric History Expresses thoughts of harming self/others: None Suicide Plan Description: No Plan Family Hx:: Diabetes, Heart Attack, Hyperlipidemia, Hypertension ROS Obtained: Yes All systems reviewed & no additional complaints - Constitutional Constitutional: Denies fever(s) - Eyes Eyes: Denies change in vision - ENT Ears, Nose, Mouth, and Throat: Denies sore throat - Cardiovascular Cardiovascular: Denies chest pain - Respiratory Respiratory: Yes cough, Yes dyspnea - Gastrointestinal Gastrointestingal: Denies: abdominal pain - Musculoskeletal Musculoskeletal: Denies joint pain - Integumentary/Breasts Skin/Breast: Denies rash - Neurologic Neurologic: Denies seizure-like activity Physical Exam - General General appearance: anxious - Head Head exam: normocephalic - Eye Eye exam: Present: PERRL, EOMI, other (pale conjunctiva) - ENT ENT exam: Present: mucous membranes dry - Neck Neck exam: Present: trachea midline - Respiratory Respiratory exam: Present: other (dec bs bilat ). Absent: respiratory distress - Cardiovascular Cardiovascular exam: Present: regular rate, systolic murmur, +S3 - Abdominal Exam Abdominal exam: Present: soft - Extremities Exam Extremities exam: Present: pedal edema. Absent: calf tenderness - Neurological Exam Neurological exam: Present: CN II-XII intact - Psychiatric Psychiatric exam: Present: anxious - Skin Skin exam: Absent: rash
[2017-09-22 04:57] LABS: Microscopic, Urine URINE MICROSCOPIC (MICROSCOPIC)
[2017-09-22 04:58] LABS: Appearance,Urine CLEAR (Clear); Bilirubin,Urine Negative (Negative); Blood, Urine Negative (Negative); Color,Urine YELLOW (Yellow); Glucose,Urine (UA) Negative (Negative); Ketones,Urine Negative (Negative); Leukocyte Esterase,Urine Negative (Negative); Protein,Urine TRACE (Negative); Urobilinogen,Urine 0.2 EU/dl (0.2)
--- NOTE | 2017-09-22 06:45 | History & Physical Report ---
*Admission Date: 09/22/17 *History of present illness: 72-year-old male with coronary artery disease, LV dysfunction, COPD presented to the emergency department with increasing shortness of breath starting earlier in the week. Patient tells me he thought he had the croup and had been trying to escobar his symptoms at home. As of yesterday he actually thought he was improving but awoke this morning acutely short of breath and was brought to the hospital by EMS. He reports cough with sputum production. He has been diagnosed with a pneumonia. Patient was just released from [facility] 1 week ago after a one-week stay regarding his heart. Patient tells me 2 weeks ago on his visit with his child welfare counselor his defibrillator discharged on multiple occasions and decision was made by the child welfare counselor to admit him to [facility] at that time. This morning the vision denies any chest pain [facility] History I have reviewed the patient's past medical history: Yes Medical History: Reports:: Congestive Heart Failure, Coronary Artery Disease, Diabetes Mellitus Type 2, Hyperlipidemia, Hypertension, Internal Pacemaker, Myocardial Infarction Denies:: Cancer, Diabetes Mellitus Type 1, MRSA Other Medical History: Reports: Anemia Other Surgeries: Yes: Cardiac Catheterization, Pacemaker, Other (BOWEL PERF SURGERY) Amputation: No Fractures: Yes (L TIB/FIB, L PELVIS, L COLLAR BONE, L RIBS) - *Social History Smoking Status: Former smoker Tobacco Type: cigarettes Alcohol Intake: former Occupational Status: unemployed, retired Housing: house Household Members: significant other - Psychiatric History Expresses thoughts of harming self/others: None Suicide Plan Description: No Plan *Family Hx:: Diabetes, Heart Attack, Hyperlipidemia, Hypertension Review of Systems - Review of Systems Review of systems:: pertinent systems reviewed and negative unless documented below - Constitutional Denies chills, Denies fever(s) - *Neurologic Denies seizure-like activity Meds Home Medications Medication Instructions Recorded Confirmed Type Acetaminophen 1,000 mg PO Q6HP PRN 07/15/17 09/22/17 History Aspirin [Adult Aspirin Regimen] 81 mg PO DAILY 07/15/17 09/22/17 History Atorvastatin Calcium [Atorvastatin 80 mg PO HS 07/15/17 09/22/17 History 80mg Tab] Clopidogrel Bisulfate [Plavix 75mg 75 mg PO DAILY 07/15/17 09/22/17 History Tab] Furosemide [Lasix 40mg tablet] 40 mg PO DAILY 07/15/17 09/22/17 History Ipratropium/Albuterol Sulfate 1 puff IH QID 07/15/17 09/22/17 History [Combivent Respimat Inh] Metformin HCl 1,000 mg PO BID 07/15/17 09/22/17 History Albuterol Sulfate [Albuterol HFA 2 puffs IH Q4HP PRN 07/16/17 09/22/17 History Inhaler] Sertraline HCl [Zoloft 100mg 100 mg PO DAILY 07/16/17 09/22/17 History tablet] Tiotropium [place] [Spiriva 1 puff IH DAILY 07/16/17 09/22/17 History 18mcg/puff inhaler] Umeclidinium [place] [Incruse 1 puff IH DAILY 07/16/17 09/22/17 History Ellipta] Rivaroxaban [Xarelto 15mg tablet] 20 mg PO HS 07/17/17 09/22/17 History Amlodipine Besylate [Norvasc 5mg 5 mg PO DAILY 08/26/17 09/22/17 History tablet] Lisinopril [Lisinopril 5mg Tablet] 5 mg PO DAILY 08/26/17 09/22/17 History Quetiapine Fumarate 25 mg PO HS 08/26/17 09/22/17 History Saxagliptin HCl [Onglyza] 5 mg PO DAILY 08/26/17 09/22/17 History miSOPROStol [Cytotec 100mcg tablet] 100 mcg PO QID 08/26/17 09/22/17 History Insulin Aspart [Novolog] 7 unit SQ AC 08/27/17 09/22/17 History Insulin Detemir [Levemir 100 35 unit SQ HS 08/27/17 09/22/17 History units/mL 10mL vial] guaiFENesin [Mucinex 600mg tablet] 600 mg PO DAILY PRN 08/27/17 09/22/17 History Bisoprolol Fumarate [Zebeta 5mg 2.5 mg PO DAILY 09/22/17 09/22/17 History tablet] Insulin Detemir [Levemir 100 35 unit SQ HS 09/22/17 09/22/17 History units/mL 10mL vial] cephALEXin [cephALEXin 500mg 1 cap PO BID 09/22/17 09/22/17 History capsule] Allergies Allergy/AdvReac Type Severity Reaction Status Date / Time Sulfa (Sulfonamide Allergy Intermediate I-RASH Verified 09/22/17 03:08 Antibiotics) [SULFA (SULFONAMIDE ANTIBIOTICS)] fluticasone Allergy Mild NA-NAUSEA/V Verified 09/22/17 03:08 [From ADVAIR DISKUS] OMITING salmeterol Allergy Mild NA-NAUSEA/V Verified 09/22/17 03:08 [From ADVAIR DISKUS] OMITING Exam Vital signs and Labs for Last 24 Hours: Temp Pulse Resp BP Pulse Ox 97.6 F 104 H 30 H 116/62 100 09/22/17 05:40 09/22/17 05:40 09/22/17 05:40 09/22/17 05:40 09/22/17 05:40 I & O for Last 24 hours: Intake & Output 09/19/17 09/20/17 09/21/17 09/22/17 11:59 11:59 11:59 11:59 Weight 197 lb Narrative: Patient awakens easily and is alert. He has increased work of breathing with use of abdominal muscles to aid with expiration. Pupils are reactive to light. Oropharynx is moist. Neck is without carotid bruits. Heart rate is mildly tachycardic but regular. Lungs have bilateral rhonchi and rales at the right base. Expiratory wheezes are faint. Abdomen is distended and soft. Extremities are warm to the touch and he has active range of motion in arms and legs. H&P: Result - Labs Labs: Laboratory Results - last 24 hr 09/22/17 03:08: WBC 18.4 H, RBC 3.40 L, Hgb 9.5 L, Hct 33.4 L, MCV 98.3 H, MCH 27.9, MCHC 28.4 L, RDW 15.2, Plt Count 479 H, MPV 7.4, Neut % (Auto) 73.2, Lymph % (Auto) 21.5, [place] % (Auto) 4.3, Eos % (Auto) 0.6, Baso % (Auto) 0.4, Neut # (Auto) 13.5 H, Lymph # (Auto) 3.9, [place] # (Auto) 0.8, Eos # (Auto) 0.1, Baso # (Auto) 0.1, Total Counted 100, Neutrophils % (Manual) 77 H, Band Neutrophils % 6.0, Lymphocytes % (Manual) 15, Monocytes % (Manual) 2, Platelet Estimate Slight increase, RBC Morphology Not Reportable, Hypochromasia 3+, Macrocytosis 1+, Rouleaux 2+ 09/22/17 03:08: Sodium 138, Potassium 4.6, Chloride 97 L, Carbon Dioxide 28, Anion Gap 17.6 H, BUN 21 H, Creatinine 1.53 H, Estimated Creat Clear 63, Estimated GFR 45 L, Est GFR ( Amer) 55 L, Glucose 367 H, Calcium 8.7, Total Bilirubin 0.2, AST 15, ALT 23, Alkaline Phosphatase 156 H, Total Creatine Kinase 34 L, CK-MB (CK-2) 0.7 D, CK-MB (CK-2) Rel Index 2.1, Troponin I 0.02, Total Protein 7.5, Albumin 3.5, Globulin 4.0 H, Albumin/Globulin Ratio 0.9 L 09/22/17 03:08: Lactic Acid 8.4 H 09/22/17 03:08: B-Natriuretic Peptide 445 H 09/22/17 03:12: Specimen Source right radial, O2 % 2, ABG pH 7.15 L*, ABG pCO2 60.7 H, ABG pO2 43.8 L, ABG HCO3 20.6 L, ABG Total CO2 22.5 L, ABG O2 Saturation 62 L*, ABG Base Excess -8.2 L, [place] Test acceptable 09/22/17 04:50: Urine Color Yellow, Urine Appearance Clear, Urine pH 7.0, Ur Specific [place] 1.010, Urine Protein Trace, Urine Glucose (UA) Negative, Urine Ketones Negative, Urine Blood Negative, Urine Nitrate Negative, Urine Bilirubin Negative, Urine Urobilinogen 0.2, Ur Leukocyte Esterase Negative, Urine WBC 10- 20 Assessment and Plan (1) Acute and chronic respiratory failure Current visit: Yes Status: Acute Category: Medical Code(s): J96.20 - Acute and chronic respiratory failure, unspecified whether with hypoxia or hypercapnia (2) Acute exacerbation of chronic obstructive airways disease Current visit: Yes Status: Acute Category: Medical Code(s): J44.1 - Chronic obstructive pulmonary disease with (acute) exacerbation (3) Cardiac pacemaker in situ Current visit: Yes Status: Acute Category: Medical Code(s): Z95.0 - Presence of cardiac pacemaker (4) DM type 2 (diabetes mellitus, type 2) Current visit: Yes Status: Acute Qualifiers: Diabetes mellitus color checker roving or yarn insulin use: with color checker roving or yarn use Diabetes mellitus complication status: with unspecified complications Qualified Code(s) : E11.8 - Type 2 diabetes mellitus with unspecified complications; Z79.4 - product development director (current) use of insulin Category: Medical Code(s): E11.9 - Type 2 diabetes mellitus without complications (5) Anemia Current visit: No Status: Acute Category: Medical Code(s): D64.9 - Anemia , unspecified (6) Systolic and diastolic CHF w/reduced LV function, NYHA class 4 Current visit: No Status: Acute Category: Medical Code(s): I50.40 - Unspecified combined systolic (congestive) and diastolic (congestive) heart failure - Assessment and plan all Dx Assessment and Plan for all problems:: 1. Cefepime and Levaquin for pneumonia. Solu-Medrol and duo nebs 4 COPD exacerbation. BiPAP as needed. 2. Home medications 3. Sliding scale insulin coverage as I anticipate hypoglycemia while he is on steroids
--- NOTE | 2017-09-22 13:22 | Pharmacy Consult Notes ---
[facility] Pharmacy VTE Monitoring - Patient Demographics Admission date: 09/22/17 Report Date: 09/22/17 Time: 13:21 Allergies/Adverse Reactions: Patient Allergies Sulfa (Sulfonamide Antibiotics) [SULFA (SULFONAMIDE ANTIBIOTICS)] Allergy ( Intermediate, Verified 09/22/17 03:08) I-RASH fluticasone [From ADVAIR DISKUS] Allergy (Mild, Verified 09/22/17 03:08) NA-NAUSEA/VOMITING salmeterol [From ADVAIR DISKUS] Allergy (Mild, Verified 09/22/17 03:08) NA-NAUSEA/VOMITING Height: 1.7 m Weight: 89.358 kg Patient Problems: Current Active Problems DM type 2 (diabetes mellitus, type 2) (Acute) Cardiac pacemaker in situ (Acute) Respiratory failure (Acute) Respiratory acidosis (Acute) Acute exacerbation of chronic obstructive airways disease (Acute) Community acquired pneumonia (Acute) Acute and chronic respiratory failure (Acute) - VTE Risk Labs: VTE Related Lab Results Hgb 9.5 g/dL (14.1-18.0) L 09/22/17 03:08 Hct 33.4 % (42.0-52.0) L 09/22/17 03:08 Plt Count 479 K/mm3 (142-424) H 09/22/17 03:08 BUN 21 mg/dL (7-18) H 09/22/17 03:08 Creatinine 1.53 mg/dL (0.70-1.30) H 09/22/17 03:08 Estimated Creat Clear 63 mL/min (0-300) 09/22/17 03:08 VTE Score: 10 VTE Risk Level: Moderate Risk - Prophylaxis VTE Prophylaxis Ordered?: Yes Types of VTE Prophylaxis: TEDS Knee High Location of Applied Device: Bilateral Lower Extremeties Pharmacologic Type: Enoxaparin (AND XARELTO)
[2017-09-22 22:21] LABS: Coronavirus 229E Not Detected (NotDetected); Coronavirus NL63 Not Detected (NotDetected); Coronavirus OC43 Not Detected (NotDetected); Coronovirus HKU1,PCR Not Detected (NotDetected)
[2017-09-23 06:17] LABS: Eosinophils % 0.1 % (0.1-12.0); Lymphocytes # 1.2 K/mm3 (0.7-4.5); Lymphocytes % 6.7 K/mm3 (10-50); Mean Corpuscular HGB Conc 29.9 g/dL (31.8-35.4); Mean Corpuscular Hemoglobin 28.5 pg (27.0-31.2); Mean Corpuscular Volume 95.3 fl (80-94); Mean Platelet Volume 7.9 fl (7.4-10.4); Monocytes # 0.5 K/mm3 (0.1-1.0); Monocytes % 2.8 % (1.7-9.3); Neutrophils # 15.7 K/mm3 (1.8-7.8); Neutrophils % 90.4 % (37.0-80.0); Platelet Count 384 K/mm3 (142-424); Red Blood Count 2.64 M/mm3 (4.60-6.20); Red Cell Distribution Width 15.5 % (11.5-17.5); White Blood Count 17.4 K/mm3 (4.8-10.8)
[2017-09-23 06:25] LABS: Anion Gap 17.7 mEq/L (5-15)
[2017-09-23 06:38] LABS: Hematocrit 25.2 % (42.0-52.0); Hemoglobin 7.5 g/dL (14.1-18.0)
[2017-09-23 06:39] LABS: Potassium 6.7 mmoL/L (3.5-5.1)
[2017-09-23 06:45] LABS: Lymphocytes % 6 % (10-50); Monocytes % 1 % (2-9); Neutrophils % 82 % (42-76); Total Cells Counted 100
[2017-09-23 06:46] LABS: Hypochromasia 2+; Macrocytosis 1+; Polychromasia 1+; Rouleaux 3+
--- NOTE | 2017-09-23 07:09 | Progress Note ---
Internal Medicine - PN: Subj *Date: 09/23/17 *Time: 07:04 Interval history: Patient has been restless most of the last 24 hours. Patient reports being uncomfortable and not being able to breathe. He does admit he is breathing a little easier than yesterday. He denies chest pain. Troponins came back elevated yesterday morning. Nursing staff reports patient seemed to ring out approximately every 20 minutes throughout the night. He complained of inability to get comfortable. He is frustrated with use of BiPAP. He brings up several issues this morning that are unrelated to his current state of health. Exam Vital signs and Labs for Last 24 Hours: Temp Pulse Resp BP Pulse Ox 98.1 F 99 H 15 116/87 100 09/23/17 04:31 09/23/17 05:48 09/23/17 04:31 09/23/17 04:31 09/23/17 04:31 Laboratory Results - last 24 hr 09/22/17 06:51: Troponin I 2.42 H 09/22/17 06:51: Magnesium 1.2 L 09/22/17 07:19: POC Glucose 382 H* 09/22/17 07:40: Lactic Acid Fup @ 4Hr 3.4 H 09/22/17 10:20: Lactic Acid Fup @ 2Hr 1.9 09/22/17 12:22: POC Glucose 436 H* 09/22/17 21:24: POC Glucose 206 H 09/22/17 22:15: Chlamy pneumoniae PCR Not detected, Adenovirus (PCR) Not detected, B.parapertussis DNA PCR Not detected, Coronavirus OC43 (PCR) Not detected, Coronavirus HKU1 (PCR) Not detected, Coronavirus 229E (PCR) Not detected, Coronavirus NL63 (PCR) Not detected, Human Metapneumovir PCR Not detected, Influenza A (H1) PCR Not detected, Influ A (H1N1/09) PCR Not detected , Influenza A (H3) PCR Not detected, Influenza Type A (PCR) Not detected, Influenza Type B (PCR) Not detected, M. pneumoniae (PCR) Not detected, Parainfluenza 1 (PCR) Not detected, Parainfluenza 2 (PCR) Not detected, Parainfluenza 3 (PCR) Not detected, Parainfluenza 4 (PCR) Not detected, RSV (PCR ) Not detected, Entero/Rhino (PCR) Not detected 09/23/17 05:55: WBC 17.4 H, RBC 2.64 L, Hgb 7.5 L*, Hct 25.2 L, MCV 95.3 H, MCH 28.5, MCHC 29.9 L, RDW 15.5, Plt Count 384, MPV 7.9, Neut % (Auto) 90.4 H, Lymph % (Auto) 6.7 L, [place] % (Auto) 2.8, Eos % (Auto) 0.1, Baso % (Auto) 0.0 L, Neut # (Auto) 15.7 H, Lymph # (Auto) 1.2, [place] # (Auto) 0.5, Eos # (Auto) 0.0, Baso # (Auto) 0.0, Total Counted 100, Neutrophils % (Manual) 82 H, Band Neutrophils % 11.0 H, Lymphocytes % (Manual) 6 L, Monocytes % (Manual) 1 L, Platelet Estimate Normal, Polychromasia 1+, Hypochromasia 2+, Macrocytosis 1+, Rouleaux 3+ 09/23/17 05:55: Sodium 131 L, Potassium 6.7 H* D, Chloride 94 L, Carbon Dioxide 26, Anion Gap 17.7 H, BUN 63 H D, Creatinine 2.88 H D, Estimated Creat Clear 29 , Estimated GFR 22 L, Est GFR ( Amer) 26 L D, Glucose 290 H 09/23/17 05:58: POC Glucose 299 H I & O for Last 24 hours: Intake & Output 09/20/17 09/21/17 09/22/17 09/23/17 11:59 11:59 11:59 11:59 Intake Total 1340 / 1340 Output Total 656 / 656 Balance 684 / 684 Weight 197 lb 189 lb Narrative: Patient appears more comfortable this morning on BiPAP. He is trying to talk with BiPAP on. When BiPAP was removed so patient could converse the more he talked to the lower his O2 sats would go. When patient would ceased speaking and focus on breathing through his nose he was able to maintain his sats on nasal cannula in the mid 90s. Lungs have improved aeration but diffuse rhonchi and no wheezing currently. Heart rate is regular. Abdomen is obese and soft. Extremities are without edema. Assessment and Plan (1) Non-STEMI (non-ST elevated myocardial infarction) Current visit: Yes Status: Acute Category: Medical Code(s): I21.4 - Non- ST elevation (NSTEMI) myocardial infarction (2) Acute and chronic respiratory failure Current visit: Yes Status: Acute Category: Medical Code(s): J96.20 - Acute and chronic respiratory failure, unspecified whether with hypoxia or hypercapnia (3) Acute exacerbation of chronic obstructive airways disease Current visit: Yes Status: Acute Category: Medical Code(s): J44.1 - Chronic obstructive pulmonary disease with (acute) exacerbation (4) Cardiac pacemaker in situ Current visit: Yes Status: Acute Category: Medical Code(s): Z95.0 - Presence of cardiac pacemaker (5) DM type 2 (diabetes mellitus, type 2) Current visit: Yes Status: Acute Qualifiers: Diabetes mellitus cargoman insulin use: with cargoman use Diabetes mellitus complication status: with unspecified complications Qualified Code(s) : E11.8 - Type 2 diabetes mellitus with unspecified complications; Z79.4 - sericulture teacher (current) use of insulin Category: Medical Code(s): E11.9 - Type 2 diabetes mellitus without complications (6) Anemia Current visit: No Status: Acute Category: Medical Code(s): D64.9 - Anemia , unspecified (7) Systolic and diastolic CHF w/reduced LV function, NYHA class 4 Current visit: No Status: Acute Category: Medical Code(s): I50.40 - Unspecified combined systolic (congestive) and diastolic (congestive) heart failure - Assessment and plan all Dx Assessment and Plan for all problems:: 1. Transfuse 2 units of packed red blood cells today with 2 units on hold. Will give Lasix only if patient shows signs of volume overload due to his acute kidney injury 2. Increase bisoprolol to 5 mg daily for his tachycardia 3. Patient may transition to facemask and possibly even nasal cannula if he can maintain his O2 sats. Check ABG this morning 4. Patient be transferred to the [facility] line 5. Echocardiogram to assess if the OR cause worsening LV dysfunction 6. Kayexalate 3 times daily for hyperkalemia.
[2017-09-23 07:49] LABS: ABG HCO3 20.8 mmhg (22.0-26.0); ABG Oxygen Saturation 93 % (90-100); ABG PCO2 39.6 mmhg (35.0-45.0); ABG PH 7.34 mmol/L (7.35-7.45); ABG PO2 73.3 mmhg (80-100); ABG TCO2 22.1 mmhg (23-27)
[2017-09-23 07:52] LABS: Allen's Test ACCEPTABLE; Oxygen 4 %
[2017-09-23 17:34] LABS: Hemoglobin 9.2 g/dL (14.1-18.0)
[2017-09-23 17:35] LABS: Hematocrit 29.7 % (42.0-52.0)
--- NOTE | 2017-09-24 07:29 | Progress Note ---
Internal Medicine - PN: Subj *Date: 09/24/17 *Time: 07:27 Interval history: Patient reports that he is feeling better. Nursing staff reports patient did well overnight and did not exhibit the level of anxiety she had the previous night. Patient has been using BiPAP again but is weaned to nasal cannula this morning. He does not have a cough. He continues to be mostly concerned about issues involved outside the hospital such as whether he will be allowed to drive once he is discharged. Exam Vital signs and Labs for Last 24 Hours: Temp Pulse Resp BP Pulse Ox 97.7 F 86 26 H 134/76 100 09/24/17 04:00 09/24/17 06:35 09/24/17 04:00 09/24/17 04:00 09/24/17 04:00 Laboratory Results - last 24 hr 09/23/17 07:20: Blood Type O Positive, Antibody Screen Negative, Crossmatch (AHG ) See Detail 09/23/17 07:42: Specimen Source Right radial, O2 % 4, ABG pH 7.34 L, ABG pCO2 39.6, ABG pO2 73.3 L, ABG HCO3 20.8 L, ABG Total CO2 22.1 L, ABG O2 Saturation 93, ABG Base Excess -5.0 L, [place] Test Acceptable 09/23/17 08:28: Blood Type Confirm O Positive 09/23/17 17:15: POC Glucose 336 H* 09/23/17 17:22: Hgb 9.2 L D, Hct 29.7 L 09/23/17 20:00: POC Glucose 265 H I & O for Last 24 hours: Intake & Output 09/21/17 09/22/17 09/23/17 09/24/17 11:59 11:59 11:59 11:59 Intake Total 1600 / 1600 1226 / 1226 Output Total 656 / 656 1050 / 1050 Balance 944 / 944 176 / 176 Weight 197 lb 189 lb 203 lb Microbiology Reports for the Last 24 Hours: Microbiology 09/23/17 10:30 Sputum - Expectorated Sputum Gram Stain - Final 09/22/17 04:50 Urine,Clean Catch Urine Culture - Preliminary NO GROWTH AFTER 24 HOURS Narrative: He looks comfortable. No signs of respiratory distress. Lungs are distant but clear with fair aeration. Heart has a regular rate and rhythm. Assessment and Plan (1) Non-STEMI (non-ST elevated myocardial infarction) Current visit: Yes Status: Acute Category: Medical Code(s): I21.4 - Non- ST elevation (NSTEMI) myocardial infarction (2) Acute and chronic respiratory failure Current visit: Yes Status: Acute Category: Medical Code(s): J96.20 - Acute and chronic respiratory failure, unspecified whether with hypoxia or hypercapnia (3) Acute exacerbation of chronic obstructive airways disease Current visit: Yes Status: Acute Category: Medical Code(s): J44.1 - Chronic obstructive pulmonary disease with (acute) exacerbation (4) Cardiac pacemaker in situ Current visit: Yes Status: Acute Category: Medical Code(s): Z95.0 - Presence of cardiac pacemaker (5) DM type 2 (diabetes mellitus, type 2) Current visit: Yes Status: Acute Qualifiers: Diabetes mellitus rodent exterminator insulin use: with snf use Diabetes mellitus complication status: with unspecified complications Qualified Code(s) : E11.8 - Type 2 diabetes mellitus with unspecified complications; Z79.4 - detention (current) use of insulin Category: Medical Code(s): E11.9 - Type 2 diabetes mellitus without complications (6) Anemia Current visit: No Status: Acute Category: Medical Code(s): D64.9 - Anemia , unspecified (7) Systolic and diastolic CHF w/reduced LV function, NYHA class 4 Current visit: No Status: Acute Category: Medical Code(s): I50.40 - Unspecified combined systolic (congestive) and diastolic (congestive) heart failure - Assessment and plan all Dx Assessment and Plan for all problems:: 1. Echocardiogram today. Discontinue IV fluids due to underlying or LV function 2. DC antibiotics as x-ray has been interpreted as chronic changes. I believe patient's elevated white count is from use of steroids 3. De-escalate steroids. 4. PT eval today
[2017-09-24 08:09] LABS: Hematocrit 28.9 % (42.0-52.0); Lymphocytes # 0.5 K/mm3 (0.7-4.5); Lymphocytes % 3.1 K/mm3 (10-50); Mean Corpuscular Hemoglobin 28.9 pg (27.0-31.2); Mean Corpuscular Volume 93.3 fl (80-94); Mean Platelet Volume 8.5 fl (7.4-10.4); Monocytes # 0.5 K/mm3 (0.1-1.0); Neutrophils # 14.3 K/mm3 (1.8-7.8); Neutrophils % 93.8 % (37.0-80.0); Platelet Count 277 K/mm3 (142-424); Red Cell Distribution Width 15.5 % (11.5-17.5); White Blood Count 15.2 K/mm3 (4.8-10.8)
[2017-09-24 08:14] LABS: Anion Gap 17.3 mEq/L (5-15); Potassium 5.3 mmoL/L (3.5-5.1)
[2017-09-24 09:17] LABS: Lymphocytes % 4 % (10-50); Monocytes % 1 % (2-9); Neutrophils % 95 % (42-76); Ovalocytes 1+; Total Cells Counted 100
[2017-09-24 09:18] LABS: Tear Drop Cells 1+
--- NOTE | 2017-09-24 20:34 | Cardiology Report ---
PROCEDURE: 2-D M-mode and color Doppler study INDICATIONS FOR THE TEST: Chest pain COPDX Heart Murmur Tobacco Smoking Palpitations Fatigue Syncope Edema HypertensionXDiabetes MellitusX Rheumatic Fever SOBXDOEXObesityXHyperlipidemiaX Family History HD Additional History NSTEMI,CHF,AF EF 06/29/17 30% PATIENT INFORMATION HEIGHT: 67 WEIGHT:189 GENDER: Male B/P:116/87 2-D/M-MODE INTERPRETATION: 2-D MEASUREMENTS OBSERVED VALUES IN CMS Right Ventricular Dimension (RVDd) 1.7 Interventricular Septum (Thickness)(IVsd) 1.2 Left Ventricular Internal Dimensions(LVIDd) 6.2 Left Ventricular Posterior Wall (Thickness)(LVPWd) 1.2 Aortic Root 2.8 Aortic Cusp Separation 2.0 Left Atrial Dimensions (LAD) 3.8 2D 1. Left atrium is mildly enlarged, left ventricle is mildly dilated, mild concentric left ventricular hypertrophy, visually estimated ejection fraction 40-45%, there is marked hypokinesis involving the inferior, inferobasal and posterobasal wall. 2. The right atrium and right ventricle are mildly enlarged with normal contractility, there is a pacemaker lead seen in the right atrium and right ventricle. 3. The aortic valve is minimally thickened and fibrosed. 4. The mitral and tricuspid valve leaflets are minimally thickened. 5. The pulmonic valve is poorly visualized. 6. No significant pericardial effusion noted. DOPPLER INTERROGATION: Doppler interrogation of the aortic, mitral and tricuspid valvular presence of moderate mitral and tricuspid regurgitation, calculated right ventricular systolic pressure is 55 mmHg, consistent with moderate pulmonary hypertension. Grade 1 diastolic dysfunction seen with tissue Doppler evidence of raised left atrial pressure. CONCLUSION: 1. Biatrial enlargement, mildly dilated left ventricle, mild concentric left ventricular hypertrophy, visually estimated ejection fraction 40-45% with multiple segmental wall motion abnormality described above, grade 1 diastolic dysfunction seen with tissue Doppler evidence of raised left atrial pressure. 2. Moderate mitral and tricuspid regurgitation, calculated right ventricular systolic pressure is 55 mmHg consistent with moderate pulmonary hypertension. 3. No significant pericardial effusion noted.
--- NOTE | 2017-09-25 07:17 | Progress Note ---
Internal Medicine - PN: Subj *Date: 09/25/17 *Time: 07:14 Interval history: Patient tried to make it through the night without use of BiPAP but was very restless according to nursing staff. BiPAP was applied in the middle the night and patient rested more comfortably. He denies chest pain. He tells me he did feel nauseous yesterday afternoon but never vomited. Exam Vital signs and Labs for Last 24 Hours: Temp Pulse Resp BP Pulse Ox 97.8 F 72 22 119/65 95 09/25/17 04:12 09/25/17 06:02 09/25/17 04:12 09/25/17 04:12 09/25/17 04:12 Laboratory Results - last 24 hr 09/22/17 16:42: POC Glucose 377 H* 09/23/17 12:10: POC Glucose 341 H* 09/24/17 06:21: POC Glucose 260 H 09/24/17 07:34: WBC 15.2 H, RBC 3.10 L, Hgb 9.0 L, Hct 28.9 L, MCV 93.3, MCH 28.9, MCHC 31.0 L, RDW 15.5, Plt Count 277 D, MPV 8.5, Neut % (Auto) 93.8 H, Lymph % (Auto) 3.1 L, [place] % (Auto) 3.0, Eos % (Auto) 0.0 L, Baso % (Auto) 0.0 L , Neut # (Auto) 14.3 H, Lymph # (Auto) 0.5 L, [place] # (Auto) 0.5, Eos # (Auto) 0.0, Baso # (Auto) 0.0, Total Counted 100, Neutrophils % (Manual) 95 H, Lymphocytes % (Manual) 4 L, Monocytes % (Manual) 1 L, Platelet Estimate Normal, Tear Drop Cells 1+, Ovalocytes 1+, Schistocytes 1+ 09/24/17 07:34: Sodium 135 L, Potassium 5.3 H D, Chloride 96 L, Carbon Dioxide 27, Anion Gap 17.3 H, BUN 93 H D, Creatinine 3.04 H, Estimated Creat Clear 29, Estimated GFR 20 L, Est GFR ( Amer) 25 L, Glucose 268 H 09/24/17 12:22: POC Glucose 513 H* 09/24/17 16:35: POC Glucose 319 H* 09/24/17 20:50: POC Glucose 144 H 09/25/17 05:22: POC Glucose 312 H* I & O for Last 24 hours: Intake & Output 09/22/17 09/23/17 09/24/17 09/25/17 11:59 11:59 11:59 11:59 Intake Total 1600 / 1600 1226 / 1226 10 / 10 Output Total 656 / 656 1550 / 1550 900 / 900 Balance 944 / 944 -324 / -324 -890 / -890 Weight 197 lb 189 lb 203 lb 204 lb Microbiology Reports for the Last 24 Hours: Microbiology 09/24/17 10:20 Sputum - Expectorated Sputum Gram Stain - Final 09/24/17 10:20 Sputum - Expectorated Sputum Sputum Culture - Preliminary 09/23/17 10:30 Sputum - Expectorated Sputum Gram Stain - Final 09/23/17 10:30 Sputum - Expectorated Sputum Sputum Culture - Final Normal Respiratory Helen 09/22/17 03:08 Blood Blood Culture - Preliminary NO GROWTH AFTER 72 HOURS 09/22/17 03:08 Blood Blood Culture - Preliminary NO GROWTH AFTER 72 HOURS 09/22/17 04:50 Urine,Clean Catch Urine Culture - Final NO GROWTH AFTER 48 HOURS Radiology Reports for the Last 24 Hours: Echocardiogram shows ejection fraction of 40-45% Narrative: He is sleeping with BiPAP on and we enter the room and is comfortable. He awakens easily. He shows no signs of respiratory distress. Lungs have more wheezing today than yesterday. Heart has a regular rate and rhythm. Abdomen is soft. Extremities have doughy edema around the calves and ankles. Assessment and Plan (1) Non-STEMI (non-ST elevated myocardial infarction) Current visit: Yes Status: Acute Category: Medical Code(s): I21.4 - Non- ST elevation (NSTEMI) myocardial infarction (2) Acute and chronic respiratory failure Current visit: Yes Status: Acute Category: Medical Code(s): J96.20 - Acute and chronic respiratory failure, unspecified whether with hypoxia or hypercapnia (3) Acute exacerbation of chronic obstructive airways disease Current visit: Yes Status: Acute Category: Medical Code(s): J44.1 - Chronic obstructive pulmonary disease with (acute) exacerbation (4) Cardiac pacemaker in situ Current visit: Yes Status: Acute Category: Medical Code(s): Z95.0 - Presence of cardiac pacemaker (5) DM type 2 (diabetes mellitus, type 2) Current visit: Yes Status: Acute Qualifiers: Diabetes mellitus fdc insulin use: with fdc use Diabetes mellitus complication status: with unspecified complications Qualified Code(s) : E11.8 - Type 2 diabetes mellitus with unspecified complications; Z79.4 - retirement (current) use of insulin Category: Medical Code(s): E11.9 - Type 2 diabetes mellitus without complications (6) Anemia Current visit: No Status: Acute Category: Medical Code(s): D64.9 - Anemia , unspecified (7) Systolic and diastolic CHF w/reduced LV function, NYHA class 4 Current visit: No Status: Acute Category: Medical Code(s): I50.40 - Unspecified combined systolic (congestive) and diastolic (congestive) heart failure (8) Acute kidney injury Current visit: Yes Status: Acute Category: Medical Code(s): N17.9 - Acute kidney failure, unspecified - Assessment and plan all Dx Assessment and Plan for all problems:: 1. Increase Solu-Medrol to every 8 hours 2. Await labs this morning for monitoring of renal function. Patient showing early signs of being fluid overloaded. I will avoid Lasix as long as his renal function remains abnormal unless is absolutely necessary to give Lasix 3. Start Mucinex per patient request
[2017-09-25 07:58] LABS: Anion Gap 14.3 mEq/L (5-15); Potassium 4.3 mmoL/L (3.5-5.1)
[2017-09-25 08:46] LABS: Eosinophils % 0.1 % (0.1-12.0); Hematocrit 25.5 % (42.0-52.0); Lymphocytes # 0.4 K/mm3 (0.7-4.5); Lymphocytes % 3.8 K/mm3 (10-50); Mean Corpuscular HGB Conc 31.5 g/dL (31.8-35.4); Mean Corpuscular Hemoglobin 28.8 pg (27.0-31.2); Mean Corpuscular Volume 91.5 fl (80-94); Monocytes # 0.4 K/mm3 (0.1-1.0); Monocytes % 3.6 % (1.7-9.3); Neutrophils # 9.5 K/mm3 (1.8-7.8); Neutrophils % 92.5 % (37.0-80.0); Platelet Count 224 K/mm3 (142-424); Red Blood Count 2.79 M/mm3 (4.60-6.20); Red Cell Distribution Width 15.5 % (11.5-17.5); White Blood Count 10.2 K/mm3 (4.8-10.8)
[2017-09-25 11:17] LABS: Lymphocytes % 2 % (10-50); Monocytes % 3 % (2-9); Neutrophils % 95 % (42-76); Total Cells Counted 100
[2017-09-25 11:19] LABS: Tear Drop Cells 1+
[2017-09-25 12:31] LABS: Microscopic, Urine URINE MICROSCOPIC (MICROSCOPIC)
[2017-09-25 12:51] LABS: Appearance,Urine CLEAR (Clear); Bilirubin,Urine Negative (Negative); Blood, Urine 2+ (Negative); Color,Urine YELLOW (Yellow); Glucose,Urine (UA) 2+ (Negative); Ketones,Urine Negative (Negative); Leukocyte Esterase,Urine Negative (Negative); PH,Urine 5.5 (5.0-8.5); Protein,Urine Negative (Negative); Urobilinogen,Urine 0.2 EU/dl (0.2)
[2017-09-25 13:18] LABS: Bacteria,Urine 1+ /lpf; Squamous Epithelial Cell,Urine Occasional #/hpf (0-5); Yeast,Urine 2+ /lpf
[2017-09-25 14:30] LABS: Hematocrit 30.6 % (42.0-52.0)
[2017-09-25 14:38] LABS: Hemoglobin 9.5 g/dL (14.1-18.0)
--- NOTE | 2017-09-26 06:53 | Progress Note ---
Internal Medicine - PN: Subj *Date: 09/26/17 *Time: 06:50 Interval history: Patient has no complaints this morning. He wore BiPAP intermittently overnight. I informed the patient that his hemoglobin keeps dropping which would suggest possibly an upper GI bleed. He tells me he had an endoscopy during 1 of his prior hospitalizations at [facility] this year. He does not recall the results of that endoscopy and states his son has the results but he has no way to contact his son right now. He has been complaining of some dyspepsia during hospitalization. I started pantoprazole intravenously yesterday Exam Vital signs and Labs for Last 24 Hours: Temp Pulse Resp BP Pulse Ox 98.3 F 74 28 H 103/62 97 09/26/17 04:00 09/26/17 06:42 09/26/17 04:00 09/26/17 04:00 09/26/17 06:42 Laboratory Results - last 24 hr 09/23/17 07:20: Blood Type O Positive, Antibody Screen Negative, Crossmatch (AHG ) See Detail 09/25/17 06:50: WBC 10.2 D, RBC 2.79 L, Hgb 8.0 L, Hct 25.5 L, MCV 91.5, MCH 28.8, MCHC 31.5 L, RDW 15.5, Plt Count 224, MPV 8.0, Neut % (Auto) 92.5 H, Lymph % (Auto) 3.8 L, [place] % (Auto) 3.6, Eos % (Auto) 0.1, Baso % (Auto) 0.0 L, Neut # (Auto) 9.5 H, Lymph # (Auto) 0.4 L, [place] # (Auto) 0.4, Eos # (Auto) 0.0, Baso # (Auto) 0.0, Total Counted 100, Neutrophils % (Manual) 95 H, Lymphocytes % (Manual) 2 L, Monocytes % (Manual) 3, Platelet Estimate Normal, Tear Drop Cells 1+, Schistocytes 1+ 09/25/17 06:50: Sodium 138, Potassium 4.3, Chloride 98, Carbon Dioxide 30, Anion Gap 14.3, BUN 108 H*, Creatinine 2.65 H, Estimated Creat Clear 34, Estimated GFR 24 L, Est GFR ( Amer) 29 L, Glucose 291 H 09/25/17 10:59: POC Glucose 573 H* 09/25/17 11:11: Random Glucose 511 H* 09/25/17 12:00: Urine Color Yellow, Urine Appearance Clear, Urine pH 5.5, Ur Specific [place] 1.010, Urine Protein Negative, Urine Glucose (UA) 2+, Urine Ketones Negative, Urine Blood 2+, Urine Nitrate Negative, Urine Bilirubin Negative, Urine Urobilinogen 0.2, Ur Leukocyte Esterase Negative, Urine RBC None , Urine WBC 3-5, Ur Squamous Epith Cells Occasional, Urine Bacteria 1+, Urine Yeast 2+ 09/25/17 14:15: Hgb 9.5 L D, Hct 30.6 L 09/25/17 16:55: Random Glucose 483 H 09/25/17 20:24: POC Glucose 319 H* 09/26/17 05:44: POC Glucose 149 H I & O for Last 24 hours: Intake & Output 09/23/17 09/24/17 09/25/17 09/26/17 11:59 11:59 11:59 11:59 Intake Total 1600 / 1600 1226 / 1226 600 / 600 587 / 587 Output Total 656 / 656 1550 / 1550 900 / 900 2200 / 2200 Balance 944 / 944 -324 / -324 -300 / -300 -1613 / -1613 Weight 189 lb 203 lb 204 lb 204 lb Microbiology Reports for the Last 24 Hours: Microbiology 09/22/17 03:08 Blood Blood Culture - Preliminary NO GROWTH AFTER 4 DAYS 09/22/17 03:08 Blood Blood Culture - Preliminary NO GROWTH AFTER 4 DAYS 09/24/17 10:20 Sputum - Expectorated Sputum Gram Stain - Final 09/24/17 10:20 Sputum - Expectorated Sputum Sputum Culture - Preliminary 09/23/17 10:30 Sputum - Expectorated Sputum Gram Stain - Final 09/23/17 10:30 Sputum - Expectorated Sputum Sputum Culture - Final Normal Respiratory Helen Narrative: He sitting up in bed and appears comfortable with no signs of dyspnea. Lungs have expiratory rhonchi posteriorly with rhonchi and wheezing anteriorly but improved aeration. Heart has a regular rate and rhythm. Abdomen is obese and soft. Assessment and Plan (1) Non-STEMI (non-ST elevated myocardial infarction) Current visit: Yes Status: Acute Category: Medical Code(s): I21.4 - Non- ST elevation (NSTEMI) myocardial infarction (2) Acute and chronic respiratory failure Current visit: Yes Status: Acute Category: Medical Code(s): J96.20 - Acute and chronic respiratory failure, unspecified whether with hypoxia or hypercapnia (3) Acute exacerbation of chronic obstructive airways disease Current visit: Yes Status: Acute Category: Medical Code(s): J44.1 - Chronic obstructive pulmonary disease with (acute) exacerbation (4) Cardiac pacemaker in situ Current visit: Yes Status: Acute Category: Medical Code(s): Z95.0 - Presence of cardiac pacemaker (5) DM type 2 (diabetes mellitus, type 2) Current visit: Yes Status: Acute Qualifiers: 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 insulin use: with termite technician use Diabetes mellitus complication status: with unspecified complications Qualified Code(s) : E11.8 - Type 2 diabetes mellitus with unspecified complications; Z79.4 - halfway (current) use of insulin Category: Medical Code(s): E11.9 - Type 2 diabetes mellitus without complications (6) Anemia Current visit: No Status: Acute Category: Medical Code(s): D64.9 - Anemia , unspecified (7) Systolic and diastolic CHF w/reduced LV function, NYHA class 4 Current visit: No Status: Acute Category: Medical Code(s): I50.40 - Unspecified combined systolic (congestive) and diastolic (congestive) heart failure (8) Acute kidney injury Current visit: Yes Status: Acute Category: Medical Code(s): N17.9 - Acute kidney failure, unspecified (9) Upper GI bleed Current visit: Yes Status: Suspected Category: Medical Code(s): K92.2 - Gastrointestinal hemorrhage, unspecified - Assessment and plan all Dx Assessment and Plan for all problems:: 1. Continue Protonix 2. Await labs this a.m. and transfuse on as needed basis 3. Try to get endoscopy report from [facility] 4. Lovenox was discontinued yesterday. If necessary we will hold Plavix and Eliquis.
[2017-09-26 07:02] LABS: Basophils % 0.1 % (0.1-2.0); Eosinophils % 0.1 % (0.1-12.0); Hematocrit 30.1 % (42.0-52.0); Hemoglobin 9.7 g/dL (14.1-18.0); Lymphocytes # 0.4 K/mm3 (0.7-4.5); Lymphocytes % 2.8 K/mm3 (10-50); Mean Corpuscular HGB Conc 32.2 g/dL (31.8-35.4); Mean Corpuscular Hemoglobin 29.1 pg (27.0-31.2); Mean Corpuscular Volume 90.2 fl (80-94); Mean Platelet Volume 8.6 fl (7.4-10.4); Monocytes # 0.5 K/mm3 (0.1-1.0); Monocytes % 3.9 % (1.7-9.3); Neutrophils # 12.2 K/mm3 (1.8-7.8); Neutrophils % 93.2 % (37.0-80.0); Platelet Count 227 K/mm3 (142-424); Red Blood Count 3.34 M/mm3 (4.60-6.20); Red Cell Distribution Width 15.8 % (11.5-17.5); White Blood Count 13.1 K/mm3 (4.8-10.8)
[2017-09-26 07:16] LABS: Anion Gap 10.5 mEq/L (5-15); Potassium 3.5 mmoL/L (3.5-5.1)
[2017-09-26 13:11] LABS: Lymphocytes % 7 % (10-50); Monocytes % 1 % (2-9); Neutrophils % 92 % (42-76); RBC Morphology Normal; Total Cells Counted 100
[2017-09-27 06:53] LABS: Hematocrit 29.9 % (42.0-52.0); Hemoglobin 9.3 g/dL (14.1-18.0); Lymphocytes # 0.4 K/mm3 (0.7-4.5); Lymphocytes % 2.6 K/mm3 (10-50); Mean Corpuscular HGB Conc 31.1 g/dL (31.8-35.4); Mean Corpuscular Hemoglobin 28.5 pg (27.0-31.2); Mean Corpuscular Volume 91.9 fl (80-94); Monocytes # 0.5 K/mm3 (0.1-1.0); Neutrophils # 12.6 K/mm3 (1.8-7.8); Neutrophils % 93.4 % (37.0-80.0); Platelet Count 244 K/mm3 (142-424); Red Blood Count 3.26 M/mm3 (4.60-6.20); Red Cell Distribution Width 15.7 % (11.5-17.5); White Blood Count 13.5 K/mm3 (4.8-10.8)
[2017-09-27 06:58] LABS: Anion Gap 7.2 mEq/L (5-15); Potassium 4.2 mmoL/L (3.5-5.1)
--- NOTE | 2017-09-27 07:30 | Progress Note ---
Internal Medicine - PN: Subj *Date: 09/27/17 *Time: 07:28 Interval history: Patient has no new complaints this morning. His day was relatively unremarkable. He was able to make it through the night without use of BiPAP. Exam Vital signs and Labs for Last 24 Hours: Temp Pulse Resp BP Pulse Ox 98.5 F 79 24 134/71 87 L 09/27/17 04:00 09/27/17 06:37 09/27/17 04:00 09/27/17 04:00 09/27/17 07:00 Laboratory Results - last 24 hr 09/26/17 06:10: Total Counted 100, Neutrophils % (Manual) 92 H, Lymphocytes % ( Manual) 7 L, Monocytes % (Manual) 1 L, Platelet Estimate Normal, RBC Morphology Normal 09/26/17 09:00: Stool Occult Blood Positive A 09/26/17 12:18: POC Glucose 492 H* 09/26/17 17:29: POC Glucose 468 H* 09/26/17 21:02: POC Glucose 493 H* 09/27/17 06:04: WBC 13.5 H, RBC 3.26 L, Hgb 9.3 L, Hct 29.9 L, MCV 91.9, MCH 28.5, MCHC 31.1 L, RDW 15.7, Plt Count 244, MPV 8.0, Neut % (Auto) 93.4 H, Lymph % (Auto) 2.6 L, Mccormick % (Auto) 4.0, Eos % (Auto) 0.0 L, Baso % (Auto) 0.0 L , Neut # (Auto) 12.6 H, Lymph # (Auto) 0.4 L, M[place]ormick # (Auto) 0.5, Eos # (Auto) 0.0, Baso # (Auto) 0.0 09/27/17 06:04: Sodium 143, Potassium 4.2, Chloride 105, Carbon Dioxide 35 H, Anion Gap 7.2, BUN 82 H, Creatinine 1.81 H, Estimated Creat Clear 50, Estimated GFR 37 L, Est GFR ( Amer) 45 L D, Glucose 186 H D I & O for Last 24 hours: Intake & Output 09/24/17 09/25/17 09/26/17 09/27/17 11:59 11:59 11:59 11:59 Intake Total 1226 / 1226 600 / 600 587 / 587 800 / 800 Output Total 1550 / 1550 900 / 900 2200 / 2200 2074 / 2074 Balance -324 / -324 -300 / -300 -1613 / -1613 -1275 / -1275 Weight 203 lb 204 lb 204 lb Microbiology Reports for the Last 24 Hours: Microbiology 09/22/17 03:08 Blood Blood Culture - Final NO GROWTH AFTER 5 DAYS 09/22/17 03:08 Blood Blood Culture - Final NO GROWTH AFTER 5 DAYS 09/24/17 10:20 Sputum - Expectorated Sputum Gram Stain - Final 09/24/17 10:20 Sputum - Expectorated Sputum Sputum Culture - Preliminary Narrative: He appears comfortable. Nasal cannula is in place. Lung exam reveals expiratory wheezing today with fair aeration and faint rhonchi. Heart has a regular rate and rhythm. Assessment and Plan (1) Non-STEMI (non-ST elevated myocardial infarction) Current visit: Yes Status: Acute Category: Medical Code(s): I21.4 - Non- ST elevation (NSTEMI) myocardial infarction (2) Acute and chronic respiratory failure Current visit: Yes Status: Acute Category: Medical Code(s): J96.20 - Acute and chronic respiratory failure, unspecified whether with hypoxia or hypercapnia (3) Acute exacerbation of chronic obstructive airways disease Current visit: Yes Status: Acute Category: Medical Code(s): J44.1 - Chronic obstructive pulmonary disease with (acute) exacerbation (4) Cardiac pacemaker in situ Current visit: Yes Status: Acute Category: Medical Code(s): Z95.0 - Presence of cardiac pacemaker (5) DM type 2 (diabetes mellitus, type 2) Current visit: Yes Status: Acute Qualifiers: Diabetes mellitus intermediate designer insulin use: with intermediate designer use Diabetes mellitus complication status: with unspecified complications Qualified Code(s) : E11.8 - Type 2 diabetes mellitus with unspecified complications; Z79.4 - shelter (current) use of insulin Category: Medical Code(s): E11.9 - Type 2 diabetes mellitus without complications (6) Anemia Current visit: No Status: Acute Category: Medical Code(s): D64.9 - Anemia , unspecified (7) Systolic and diastolic CHF w/reduced LV function, NYHA class 4 Current visit: No Status: Acute Category: Medical Code(s): I50.40 - Unspecified combined systolic (congestive) and diastolic (congestive) heart failure (8) Acute kidney injury Current visit: Yes Status: Acute Category: Medical Code(s): N17.9 - Acute kidney failure, unspecified (9) Upper GI bleed Current visit: Yes Status: Suspected Category: Medical Code(s): K92.2 - Gastrointestinal hemorrhage, unspecified - Assessment and plan all Dx Assessment and Plan for all problems:: 1. Restart Lasix today 2. Encourage patient to ambulate more in the room
[2017-09-27 09:45] LABS: Lymphocytes % 2 % (10-50); Monocytes % 4 % (2-9); Neutrophils % 94 % (42-76); Total Cells Counted 100
[2017-09-27 09:47] LABS: Hypochromasia 1+
[2017-09-28 07:26] LABS: Eosinophils % 0.1 % (0.1-12.0); Hematocrit 29.8 % (42.0-52.0); Hemoglobin 9.5 g/dL (14.1-18.0); Lymphocytes # 0.3 K/mm3 (0.7-4.5); Mean Corpuscular HGB Conc 31.9 g/dL (31.8-35.4); Mean Corpuscular Hemoglobin 29.5 pg (27.0-31.2); Mean Corpuscular Volume 92.4 fl (80-94); Mean Platelet Volume 8.2 fl (7.4-10.4); Monocytes # 0.4 K/mm3 (0.1-1.0); Neutrophils # 13.1 K/mm3 (1.8-7.8); Neutrophils % 94.9 % (37.0-80.0); Platelet Count 243 K/mm3 (142-424); Red Blood Count 3.23 M/mm3 (4.60-6.20); Red Cell Distribution Width 15.3 % (11.5-17.5); White Blood Count 13.8 K/mm3 (4.8-10.8)
--- NOTE | 2017-09-28 07:48 | Discharge Summary ---
General - General Admission date:: 09/22/17 Discharge date: 09/28/17 HPI HPI: 72-year-old male with coronary artery disease, LV dysfunction, COPD presented to the emergency department with increasing shortness of breath starting earlier in the week. Patient tells me he thought he had the croup and had been trying to escobar his symptoms at home. As of yesterday he actually thought he was improving but awoke this morning acutely short of breath and was brought to the hospital by EMS. He reports cough with sputum production. He has been diagnosed with a pneumonia. Patient was just released from [facility] 1 week ago after a one-week stay regarding his heart. Patient tells me 2 weeks ago on his visit with his market news reporter his defibrillator discharged on multiple occasions and decision was made by the market news reporter to admit him to [place] at that time. This morning the vision denies any chest pain Hospital Course Hospital Course: Patient was admitted with acute respiratory failure with both hypercapnia and hypoxia. Patient was in respiratory distress and BiPAP was applied to reverse both hypercapnia and hypoxia. After 24 hours of BiPAP patient's blood gas had improved. Patient continued to require BiPAP off and on for the first 3 days of hospitalization and then was able to be weaned permanently. Patient seem to struggle more with breathing when he became more anemic with a hemoglobin of around 8. Transfusion seemed to improve his breathlessness. Due to his COPD exacerbation he was started on broad-spectrum antibiotics as well as Solu- Medrol and duo nebs. Once cultures returned negative and x-ray was interpreted as chronic changes without infiltrates his antibiotics were discontinued. Steroids were de-escalated as patient improved. At discharge he will continue prednisone Patient's demand ischemia because non-ST elevation TN. Patient was placed on Lovenox for 72 hours along with his Plavix, aspirin, Eliquis. Echocardiogram was performed which showed an improved ejection fraction compared to previous echo at this facility with ejection fraction of 40-45%. Patient's heart rate was elevated and his bisoprolol was increased. Patient was placed on fluid restrictions later on during hospitalization due to weight gain from fluid retention caused by his need for IV fluids during the early stages of admission due to his acute kidney injury. Patient's acute kidney injury was treated with gentle IV fluid hydration and nephrotoxic medications were discontinued. Renal function peaked at a creatinine of 3.65 and by the day of discharge had returned to near baseline. Patient developed recurrent episodes of anemia that required blood transfusion. Patient received a total of 3 units of packed red blood cells during his hospitalization. He was suspected he was developing a GI bleed due to his significantly elevated BUN. Patient informed that he had an EGD at an outside facility earlier this year. Patient did undergo EGD at [facility] which showed erosive gastritis. He was placed on Protonix 40 mg twice daily intravenously and H&H stabilized. He will continue on iron supplement as an outpatient. Objective Vital signs: Temp Pulse Resp BP Pulse Ox 97.8 F 74 25 H 113/77 96 09/28/17 04:00 09/28/17 06:40 09/28/17 04:00 09/28/17 04:00 09/28/17 06:40 Results Labs on day of discharge: Labs from last 24 hours 09/28/17 09/27/17 09/27/17 06:11 21:07 16:55 Total Counted Neutrophils % (Manual) Lymphocytes % (Manual) Monocytes % (Manual) Platelet Estimate Hypochromasia POC Glucose 267 H 388 H* 486 H* 09/27/17 09/27/17 09/27/17 11:39 06:04 06:02 Total Counted 100 Neutrophils % (Manual) 94 H Lymphocytes % (Manual) 2 L Monocytes % (Manual) 4 Platelet Estimate Normal Hypochromasia 1+ POC Glucose 423 H* 202 H DS: Diagnosis - Discharge Diagnosis (1) Acute and chronic respiratory failure Status: Acute (2) Non-STEMI (non-ST elevated myocardial infarction) Status: Acute (3) Acute exacerbation of chronic obstructive airways disease Status: Acute (4) Cardiac pacemaker in situ Status: Acute (5) DM type 2 (diabetes mellitus, type 2) Status: Acute (6) Anemia Status: Acute (7) Systolic and diastolic CHF w/reduced LV function, NYHA class 4 Status: Acute (8) Acute kidney injury Status: Acute (9) Upper GI bleed Status: Suspected Discharge Plan - Patient Discharge Instructions ACTIVITY: Continue current activity DIET: continue same diet - Follow up Plan Follow up with: Roberto Carlos David MD [Primary Care Provider] - 1 week Disposition: Home, Self-Senior Care Medications: Home Medications Medication Instructions Recorded Confirmed Type Acetaminophen 1,000 mg PO Q6HP PRN 07/15/17 09/22/17 History Aspirin [Adult Aspirin Regimen] 81 mg PO DAILY 07/15/17 09/22/17 History Atorvastatin Calcium [Atorvastatin 80 mg PO HS 07/15/17 09/22/17 History 80mg Tab] Clopidogrel Bisulfate [Plavix 75mg 75 mg PO DAILY 07/15/17 09/22/17 History Tab] Furosemide [Lasix 40mg tablet] 40 mg PO DAILY 07/15/17 09/22/17 History Ipratropium/Albuterol Sulfate 1 puff IH QID 07/15/17 09/22/17 History [Combivent Respimat Inh] Metformin HCl 1,000 mg PO BID 07/15/17 09/22/17 History Albuterol Sulfate [Albuterol HFA 2 puffs IH Q4HP PRN 07/16/17 09/22/17 History Inhaler] Sertraline HCl [Zoloft 100mg 100 mg PO DAILY 07/16/17 09/22/17 History tablet] Tiotropium [place] [Spiriva 1 puff IH DAILY 07/16/17 09/22/17 History 18mcg/puff inhaler] Umeclidinium [place] [Incruse 1 puff IH DAILY 07/16/17 09/22/17 History Ellipta] Rivaroxaban [Xarelto 15mg tablet] 20 mg PO HS 07/17/17 09/22/17 History Amlodipine Besylate [Norvasc 5mg 5 mg PO DAILY 08/26/17 09/22/17 History tablet] Lisinopril [Lisinopril 5mg Tablet] 5 mg PO DAILY 08/26/17 09/22/17 History Quetiapine Fumarate 25 mg PO HS 08/26/17 09/22/17 History Saxagliptin HCl [Onglyza] 5 mg PO DAILY 08/26/17 09/22/17 History miSOPROStol [Cytotec 100mcg tablet] 100 mcg PO QID 08/26/17 09/22/17 History Insulin Aspart [Novolog] 7 unit SQ AC 08/27/17 09/22/17 History guaiFENesin [Mucinex 600mg tablet] 600 mg PO DAILY PRN 08/27/17 09/22/17 History Amiodarone HCl [Amiodarone 200mg 200 mg PO BID 09/22/17 09/22/17 History Tab] Bisoprolol Fumarate [Zebeta 5mg 2.5 mg PO DAILY 09/22/17 09/22/17 History tablet] Insulin Detemir [Levemir 100 35 unit SQ HS 09/22/17 09/22/17 History units/mL 10mL vial] cephALEXin [cephALEXin 500mg 500 mg PO BID 09/22/17 09/22/17 History capsule] Prescriptions/Medication Reconciliation: New Bisoprolol Fumarate [Zebeta 5mg tablet] 5 mg PO DAILY #30 tab Ferrous Sulfate [Ferrous Sulfate 325mg Tablet] 325 mg PO DAILY #30 tab Pantoprazole Sodium [Protonix 40mg tablet] 40 mg PO DAILY 30 Days #30 tab predniSONE [Prednisone 20mg Tab] 20 mg PO DAILY #7 tab Continue Furosemide [Lasix 40mg tablet] 40 mg PO DAILY Clopidogrel Bisulfate [Plavix 75mg Tab] 75 mg PO DAILY Atorvastatin Calcium [Atorvastatin 80mg Tab] 80 mg PO HS Acetaminophen 1,000 mg PO Q6HP PRN PRN Reason: PAIN Albuterol Sulfate [Albuterol HFA Inhaler] 2 puffs IH Q4HP PRN PRN Reason: Shortness Of Breath Or Wheezing Umeclidinium [place] [Incruse Ellipta] 1 puff IH DAILY Tiotropium [place] [Spiriva 18mcg/puff inhaler] 1 puff IH DAILY Rivaroxaban [Xarelto 15mg tablet] 20 mg PO HS Amlodipine Besylate [Norvasc 5mg tablet] 5 mg PO DAILY Lisinopril [Lisinopril 5mg Tablet] 5 mg PO DAILY miSOPROStol [Cytotec 100mcg tablet] 100 mcg PO QID Quetiapine Fumarate 25 mg PO HS Saxagliptin HCl [Onglyza] 5 mg PO DAILY guaiFENesin [Mucinex 600mg tablet] 600 mg PO DAILY PRN PRN Reason: Cough Insulin Detemir [Levemir 100 units/mL 10mL vial] 35 unit SQ HS Ipratropium/Albuterol Sulfate [Combivent Respimat Inh] 1 puff IH QID Sertraline HCl [Zoloft 100mg tablet] 100 mg PO DAILY Insulin Aspart [Novolog] 7 unit SQ AC cephALEXin [cephALEXin 500mg capsule] 500 mg PO BID Amiodarone HCl [Amiodarone 200mg Tab] 200 mg PO BID Discontinued Metformin HCl 1,000 mg PO BID Aspirin [Adult Aspirin Regimen] 81 mg PO DAILY Bisoprolol Fumarate [Zebeta 5mg tablet] 2.5 mg PO DAILY
[2017-09-28 09:01] LABS: Anion Gap 6.1 mEq/L (5-15); Potassium 4.1 mmoL/L (3.5-5.1)
[2017-09-28 09:39] LABS: Lymphocytes % 4 % (10-50); Monocytes % 3 % (2-9); Neutrophils % 92 % (42-76); Total Cells Counted 100
[2017-09-28 09:40] LABS: RBC Morphology Normal
== END 2017-09-28 09:35 | disposition home or self-care (01) ==
LOC: ER 02:50 → ICU 04:58 → 2ND 09-26 19:54
PROVIDERS: ADMIT Emergency Medicine; ATTEND Family Medicine

== ENCOUNTER → 2017-10-18 10:29 | Outpatient (CLI) | payer MEDICARE, BC, SELFPAY ==
--- NOTE | 2017-10-18 10:41 | XR_ITS ---
XR chest 2V HISTORY: ITS.REASON: AMIODARONE SURVEILLANCE ORDERING PHYSICIAN: Ronald Duque PATIENT AGE: 72 years COMPARISON: 10/05/2017 FINDINGS: Bipolar pacemaker remains in place. There is mild cardiomegaly without failure with coronary artery stent noted on the left. There is chronic coarsening of the bronchovascular markings with increased markings in the perihilar region as previously described.. This is not significantly changed. No new areas of consolidation evident. There are degenerative changes in the thoracic spine. IMPRESSION: Overall stable appearance of the chest. There are chronic changes in the perihilar region with cardiomegaly and a pacemaker present
[2017-10-18 12:22] LABS: Alanine Aminotransferase 29 U/L (12-78); Albumin Level 3.2 gm/dL (3.4-5.0); Albumin/Globulin Ratio 0.9 (1.1-1.8); Alkaline Phosphatase 168 U/L (46-116); Anion Gap 10.8 mEq/L (5-15); Aspartate Amino Transferase 14 U/L (15-37); Bilirubin,Total 0.3 mg/dL (0.2-1.0); Blood Urea Nitrogen 21 mg/dL (7-18); Calcium 9.2 mg/dL (8.5-10.1); Carbon Dioxide 36 mmol/L (21.0-32.0); Chloride 97 mmol/L (98-107); Creatinine,Serum 1.22 mg/dL (0.70-1.30); Estimated Glomerular Filt Rate 59 ml/min (>60); GFR (African American) 71 ML/MIN (>60); Globulin 3.5 gm/dl (1.3-3.2); Glucose 269 mg/dL (74-106); Potassium 4.8 mmoL/L (3.5-5.1); Sodium 139 mmol/L (136-145); Thyroid Stimulating Hormone 1.35 uIU/ml (0.358-3.740); Total Protein,Serum 6.7 gm/dL (6.4-8.2)
== END ==
PROVIDERS: Visit Provider Internal Medicine Clinical Cardiac Electrophysiology
DX: Z79.899 Other long term (current) drug therapy (principal)
CPT/HCPCS: 36415; 71046; 80053; 84443